=== PATIENT | female | born 1960 | race Caucasian/White ===

== ENCOUNTER → 2016-12-28 | Outpatient (REF) | payer OTHER ==
[~2016-12-28] MED LIST: BISAC5TA PO; FAMO40TA3 PO; GABA800T PO; LIPI80TA PO; METR1TAB66 PO; ONDA4TAB6 PO; PANT40TA2 PO
== END ==
LOC: M LAB REF 09:29
PROVIDERS: ATTEND Internal Medicine Gastroenterology
DX: R19.7 Diarrhea, unspecified (principal)

== ENCOUNTER 2017-01-11 12:45 | Observation (INO) | payer OTHER ==
[~2017-01-11] VITALS: Ht 162.6 cm; Wt 70.8 kg
[~2017-01-11 12:45] MED LIST changes: -PANT40TA2 PO
[2017-01-11] MEDS ORDERED: NS 1,000 ML IV ONE (13:00)
[2017-01-11] MEDS ORDERED: LIDOCAINE 2% INJ 100 MG/5 ML SDV (FOR ANES.) As Ordered ONE (14:27)
[2017-01-11] MEDS ORDERED: PROPOFOL 200 MG/20 ML VIAL As Ordered ONE ×4 (14:27→15:40)
--- NOTE | 2017-01-11 15:55 | ROOR ---
Patient Name: Leslee Gonzalez Procedure Date: 01/11/2017 2:41 PM Date of : 1960 Age: 56 Room: [facility] Gender: Female Note Status: Finalized Procedure: Colonoscopy Indications: Chronic diarrhea Providers: Ever Mcbride MD Referring MD: ROSINA FONTAINE MD Requesting Provider: Medicines: Monitored Anesthesia Care Complications: No immediate complications. Procedure: Pre-Anesthesia Assessment: - Prior to the procedure, a History and Physical was performed, and patient medications and allergies were reviewed. The patient is competent. The risks and benefits of the procedure and the sedation options and risks were discussed with the patient. All questions were answered and informed consent was obtained. Patient identification and proposed procedure were verified by the physician, the nurse and the anesthesiologist in the procedure room. Mental Status Examination: alert and oriented. Airway Examination: normal oropharyngeal airway and neck mobility. Respiratory Examination: clear to auscultation. CV Examination: normal. Prophylactic Antibiotics: The patient does not require prophylactic antibiotics. Prior Anticoagulants: The patient has taken no previous anticoagulant or antiplatelet agents. ASA Grade Assessment: III - A patient with severe systemic disease. After reviewing the risks and benefits, the patient was deemed in satisfactory condition to undergo the procedure. The anesthesia plan was to use monitored anesthesia care (MAC). Immediately prior to administration of medications, the patient was re-assessed for adequacy to receive sedatives. The heart rate, respiratory rate, oxygen saturations, blood pressure, adequacy of pulmonary ventilation, and response to care were monitored throughout the procedure. The physical status of the patient was re-assessed after the procedure. The Colonoscope was introduced through the anus and advanced to the terminal ileum, with identification of the appendiceal orifice and IC valve. The colonoscopy was performed without difficulty. The patient tolerated the procedure well. The quality of the bowel preparation was good. The terminal ileum, ileocecal valve, appendiceal orifice, and rectum were photographed. Scope insertion time was 3 minutes. Scope withdrawal time was 15 minutes. The total duration of the procedure was 20 minutes. Findings: Hemorrhoids were found on perianal exam. The terminal ileum appeared normal. A 3 mm polyp was found in the cecum. The polyp was sessile. The polyp was removed with a cold biopsy forceps. Resection and retrieval were complete. Verification of patient identification for the specimen was done by the physician and nurse using the patient's name, date and medical record number. Estimated blood loss was minimal. A 15 mm polyp was found in the descending colon. The polyp was sessile. The polyp was removed with a hot snare. Resection and retrieval were complete. To close a defect after polypectomy, three hemostatic clips were successfully placed. There was no bleeding at the end of the procedure. Multiple small and large-mouthed diverticula were found in the sigmoid colon. There was no evidence of diverticular bleeding. Non-bleeding external and internal hemorrhoids were found during retroflexion. The hemorrhoids were large. Impression: - Hemorrhoids found on perianal exam. - The examined portion of the ileum was normal. - One 3 mm polyp in the cecum, removed with a cold biopsy forceps. Resected and retrieved. - One 15 mm polyp in the descending colon, removed with a hot snare. Resected and retrieved. Clips were placed. - Moderate diverticulosis in the sigmoid colon. There was no evidence of diverticular bleeding. - Non-bleeding external and internal hemorrhoids. Recommendation: - Patient has a contact number available for emergencies. The signs and symptoms of potential delayed complications were discussed with the patient. Return to normal activities tomorrow. Written discharge instructions were provided to the patient. - High fiber diet. - Continue present medications. - Await pathology results. - Preparation H ointment: Apply externally daily for 5 days. - Repeat colonoscopy in 3 - 5 years for surveillance based on pathology results. - Return to GI clinic as previously scheduled on 01/20/2017 at 10:00 AM. - Referral to surgery for the large hemorrhoids at appointment to be scheduled. - Return to primary care physician. Ever Mcbride MD Ever Mcbride MD 01/11/2017 3:54:53 PM This report has been signed electronically. Number of Addenda: 0 Note Initiated On: 01/11/2017 2:41 PM Estimated Blood Loss: Estimated blood loss was minimal.
--- NOTE | 2017-01-11 16:01 | ROOR ---
Patient Name: Leslee Gonzalez Procedure Date: 01/11/2017 2:40 PM Date of : 1960 Age: 56 Room: [facility] Gender: Female Note Status: Finalized Procedure: Upper GI endoscopy Indications: Suspected gastro-esophageal reflux disease Providers: Ever Mcbride MD Referring MD: ROSINA FONTAINE MD Requesting Provider: Medicines: Monitored Anesthesia Care Complications: No immediate complications. Procedure: Pre-Anesthesia Assessment: - Prior to the procedure, a History and Physical was performed, and patient medications and allergies were reviewed. The patient is competent. The risks and benefits of the procedure and the sedation options and risks were discussed with the patient. All questions were answered and informed consent was obtained. Patient identification and proposed procedure were verified by the physician, the nurse and the fertilizer applicator in the procedure room. Mental Status Examination: normal. Airway Examination: normal oropharyngeal airway and neck mobility. Respiratory Examination: clear to auscultation. CV Examination: normal. Prophylactic Antibiotics: The patient does not require prophylactic antibiotics. Prior Anticoagulants: The patient has taken no previous anticoagulant or antiplatelet agents. ASA Grade Assessment: II - A patient with mild systemic disease. After reviewing the risks and benefits, the patient was deemed in satisfactory condition to undergo the procedure. The anesthesia plan was to use monitored anesthesia care (MAC). Immediately prior to administration of medications, the patient was re-assessed for adequacy to receive sedatives. The heart rate, respiratory rate, oxygen saturations, blood pressure, adequacy of pulmonary ventilation, and response to care were monitored throughout the procedure. The physical status of the patient was re-assessed after the procedure. The Endoscope was introduced through the mouth, and advanced to the second part of duodenum. The upper GI endoscopy was accomplished without difficulty. The patient tolerated the procedure well. Findings: The Z-line was irregular and was found 36 cm from the incisors. Biopsies were taken with a cold forceps for histology. Verification of patient identification for the specimen was done by the physician and nurse using the patient's name, date and medical record number. Estimated blood loss was minimal. Diffuse moderate inflammation characterized by erythema and granularity was found in the gastric body and in the gastric antrum. Biopsies were taken with a cold forceps for Helicobacter pylori testing. The duodenal bulb and second portion of the duodenum were normal. Biopsies for histology were taken with a cold forceps for evaluation of celiac disease. Impression: - Z-line irregular, 36 cm from the incisors. Biopsied. - Gastritis. Biopsied. - Normal duodenal bulb and second portion of the duodenum. Biopsied. Recommendation: - Patient has a contact number available for emergencies. The signs and symptoms of potential delayed complications were discussed with the patient. Return to normal activities tomorrow. Written discharge instructions were provided to the patient. - Clear liquid diet for 1 day, then advance as tolerated to resume previous diet. - Follow an antireflux regimen. - Use Protonix (pantoprazole) 40 mg PO daily for 8 weeks. - Return to GI clinic as previously scheduled on 01/20/2017 at 10:00 AM. - Return to primary care physician. Ever Mcbride MD Ever Mcbride MD 01/11/2017 4:00:51 PM This report has been signed electronically. Number of Addenda: 0 Note Initiated On: 01/11/2017 2:40 PM Estimated Blood Loss: Estimated blood loss was minimal.
[2017-01-11] MEDS ORDERED: ONDANSETRON 4MG/2ML VIAL (J2405) As Ordered ONE (16:05)
[2017-01-11] MEDS ORDERED: ONDANSETRON 4MG/2ML VIAL (J2405) IV ONE (16:15)
[2017-01-11 17:51] VITALS: BP 154/68
[2017-01-11] MEDS ORDERED: PANTOPRAZOLE 40MG INJ (PROTONIX) (C9113) IV ONE (18:00)
[2017-01-11] MEDS ORDERED: KETOROLAC 30 MG/ML VIAL (J1885) IV ONE (18:15)
[2017-01-11] MEDS: LR 1,000 ML IV SCH (18:29)
[2017-01-11 18:35] LABS: MEAN CORPUSCULAR HEMOGLOBIN 31.9 pg (27.0-33.0); MEAN CORPUSCULAR HGB CONC 34.2 g/dl (32.0-36.5); MEAN CORPUSCULAR VOLUME 93.1 fl (80.0-96.0); RED CELL DISTRIBUTION WIDTH 12.7 % (11.5-14.5); WHITE BLOOD COUNT 15.1 10^3/uL (4.0-10.0)
[2017-01-11] MEDS ORDERED: D5W IV ONE (19:00)
[2017-01-11] MEDS ORDERED: ONDANSETRON 4MG/2ML VIAL (J2405) IV PRN (19:00)
[2017-01-11] MEDS ORDERED: ERYTHROMYCIN LACTOBIONATE IV ONE (19:00)
[2017-01-11 19:06] LABS: ALBUMIN 3.6 GM/DL (3.2-5.2); ALBUMIN/GLOBULIN RATIO 1.09 (1.00-1.93); ALKALINE PHOSPHATASE 64 U/L (45-117); ALT/SGPT 17 U/L (12-78); ANION GAP 12 MEQ/L (8-16); AST/SGOT 15 U/L (15-37); BILIRUBIN,TOTAL 0.6 MG/DL (0.2-1.0); BLOOD UREA NITROGEN 13 MG/DL (7-18); CALCIUM LEVEL 8.5 MG/DL (8.5-10.1); CARBON DIOXIDE LEVEL 21 MEQ/L (21-32); CHLORIDE LEVEL 110 MEQ/L (98-107); CREATININE FOR GFR 0.87 MG/DL (0.55-1.02); GLOMERULAR FILTRATION RATE > 60.0 (>51); GLUCOSE, FASTING 87 MG/DL (70-105); POTASSIUM SERUM 3.4 MEQ/L (3.5-5.1); SODIUM LEVEL 143 MEQ/L (136-145); TOTAL PROTEIN 6.9 GM/DL (6.4-8.2)
[2017-01-11] MEDS: GABAPENTIN 400 MG CAP PO SCH ×2 (19:56→21:00)
[2017-01-11 20:00] VITALS: BP 180/81
[2017-01-11] MEDS ORDERED: METOCLOPRAMIDE INJ 10MG/2ML VIAL (J2765) IV ONE (20:30)
--- NOTE | 2017-01-11 22:29 | CR.PDOC ---
[facility] Consultation Consultation DATE OF CONSULTATION: Jan 11, 2017 at 17:05 Patient admitted to 23 hour observation Unit post Endoscopic procedures. HPI: 56 year old woman with cervical spine disease ( s/p spinal fusion surgery) , chronic back pain, acid reflux was seen in GI clinic for history of diverticulitis, abdominal pain, chronic intermittent diarrhea and chronic acid reflux not controlled with Pepcid. Patient tolerated procedures well. Detailed procedure notes attached below. Patient post procedure started complaining of nausea and persistent retching with mucous output she vomited atleast 50 ml of greenish/ coffee coloured material. Also patient reported that even last time when she had anesthesia she had persistent vomiting and was admitted to hospital so patient was concerned to go home. Patient was monitored for 1 hours in OPP after giving Zofran, but continued to have nausea and retching with liquid saliva vomiting. So patient was admitted for 23 hour observation unit. Patient also reports severe back pain. Which had been chronic but due to retching having more pain. Also patient could not take her home pain medications due to vomiting. Patient is able to pass gas. Pertinent negative symptoms: Patient denies fever, chills, abdominal pain, hematemesis, melena or hematochezia, bloating or abdominal distention. Review of Systems: GI: as stated above CVS: No chest pain, No palpitations, No leg swelling. RS: No Shortness of breath, No Wheezing, no cough SCHOOL GUARD: No dizziness, No motor weakness, No sensory problems Hematology: No bruising, No gum bleeding, Musculoskeletal: Back pain- chronic, ambulating well. Skin: No rash : No hematuria, No burning sensation of the urine ENT: No ear discharge/ pain, No dysphagia. Eyes: No photophobia. Home medications: reviewed. Antithrombotic agents - None Medical h/o: As above. Surgical h/o: Appendectomy, cholecystectomy, C- section x 3, C- spine surgery, umbilical hernia repair. Social h/o: Denied Alcohol use, smoking, IVDA/ drugs . Family h/o of GI cancers - None Prior Endoscopies: Patient today underwent EGD ( for chronic acid reflux) and Colonoscopy for h/o diverticulitis. --- EGD Noted irregular Z-line in esophagus, gastritis and normal Duodenum. --- Colonoscopy Fair prep. Completed till TI, 3 mm polyp in cecum and 15 mm polyp in descending colon removed. Clips placed. Large hemorrhoids. Prior GI evaluation: Exam: Vitals: reviewed General: Alert and oriented x 3, not in distress HEENT: Normal oropharynx, NO cervical lymph nodes. Chest: symmetric with bilateral clear air entry, CVS: S1, S2 heard, normal, no murmurs . Abdomen: non-distended, no surgical scars, soft, non-tender, no palpable masses , normal bowel sounds heard. Rectal exam: refused. . Extremities: no pedal edema, pulses palpable. SCHOOL GUARD: no focal motor or sensory deficits. Moves all extremities Skin: no rash. Labs: reviewed. Mild elevated WBC could be reactive. (NO fever). Imaging: none for now in this admission. Impression: - Persistent nausea or vomiting. h/o similar response post anesthetic procedure in past. DDx- Medication induced vs post procedure vs acute gastritis. Vs r/o procedure complications- less likell - Chronic back pain. Recommendations: - Patient educated about the endoscopy predures results, All questions answered. - IN view of persistent nausea and vomiting admitted patient to 23 hour observation unit; - Will closely monitor vitals. - Pain medications- - ( morphine 2mg Q 8 hours PRN). - resumed home medications. - Clear liquid diet for 24 hours and then advance. - Patient educated about the possible differential diagnoses and plan of care. All questions answered to the patient satisfaction and Patient verbalized understanding and agreed for plan of care. - If patient sympoms might proceed with CT abdomen depending on clinical course. Plan of care reviewed with patient and floor nurse.. Allergies Coded Allergies: No Known Allergies (Unverified , 01/04/17) Home Medications Scheduled Atorvastatin Calcium (Lipitor) 80 Mg Tab, 80 MG PO QHS, (Reported) Famotidine (Famotidine) 40 Mg Tab, 40 MG PO QAM, (Reported) Gabapentin (Gabapentin) 800 Mg Tab, 800 MG PO TID, (Reported) Metronidazole (Metronidazole) 500 Mg Tab, 500 MG PO DAILY, (Reported) Scheduled PRN Bisacodyl (Bisacodyl EC) 5 Mg Tab, 5 MG PO DAILY PRN for CONSTIPATION, (Reported ) Ondansetron (Ondansetron Odt) 4 Mg Tab, 4 MG PO DAILY PRN for NAUSEA, (Reported) BETI SPARKS MD Jan 11, 2017 22:29
[2017-01-12] VITALS: BP 124/80
[2017-01-12] MEDS ORDERED: MORPHINE 2 MG/ML 1ML SYRINGE IV PRN (00:30)
[2017-01-12 04:00] VITALS: BP 140/80
[2017-01-12 07:00] LABS: BASO % 0.3 % (0.0-1.0); EOS # 0.2 10^3/uL (0.0-0.50); EOS % 1.2 % (0.0-3.0); IMMATURE GRANULOCYTE % 0.4 % (0-0); LYMPH # 2.2 10^3/uL (1.5-4.5); LYMPH % 17.7 % (24.0-44.0); MEAN CORPUSCULAR HEMOGLOBIN 32.2 pg (27.0-33.0); MEAN CORPUSCULAR HGB CONC 34.4 g/dl (32.0-36.5); MEAN CORPUSCULAR VOLUME 93.7 fl (80.0-96.0); MONO # 0.8 10^3/uL (0.0-0.8); MONO % 6.4 % (0.0-5.0); PLATELET COUNT, AUTOMATED 212 10^3/uL (150-450); RED CELL DISTRIBUTION WIDTH 12.7 % (11.5-14.5); WHITE BLOOD COUNT 12.2 10^3/uL (4.0-10.0)
[2017-01-12 07:32] LABS: ANION GAP 8 MEQ/L (8-16); BLOOD UREA NITROGEN 10 MG/DL (7-18); CALCIUM LEVEL 8.5 MG/DL (8.5-10.1); CARBON DIOXIDE LEVEL 26 MEQ/L (21-32); CHLORIDE LEVEL 107 MEQ/L (98-107); CREATININE FOR GFR 0.68 MG/DL (0.55-1.02); GLOMERULAR FILTRATION RATE > 60.0 (>51); GLUCOSE, FASTING 69 MG/DL (70-105); POTASSIUM SERUM 3.3 MEQ/L (3.5-5.1); SODIUM LEVEL 141 MEQ/L (136-145)
[2017-01-12 08:00] VITALS: BP 134/67
[2017-01-12] MEDS: GABAPENTIN 400 MG CAP PO SCH ×2 (08:51→15:52)
[2017-01-12] MEDS ORDERED: ATORVASTATIN 20 MG TAB PO SCH (09:00)
[2017-01-12] MEDS ORDERED: PANTOPRAZOLE 40MG TAB (PROTONIX) PO SCH (09:00)
[2017-01-12] MEDS: LR 1,000 ML IV SCH (11:36)
[2017-01-12 12:00] VITALS: BP 115/71
[2017-01-12] MEDS ORDERED: ISOVUE-370 76% 100ML VIAL (Q9967) As Ordered ONE (14:20)
--- NOTE | 2017-01-12 15:39 | REP ---
CT of the abdomen and pelvis with IV contrast, without bowel contrast: The patient reportedly recently underwent colonoscopy and endoscopy. The visualized lung lagos are unremarkable. The hepatic parenchyma is homogeneous. There are surgical clips in the gallbladder fossa. The pancreas and spleen are unremarkable except for calcified granulomas in the spleen. The gastric wall appears thickened. This is nonspecific and could be artifact from non distension or could represent gastric wall edema. There is no Gastric adenopathy. The adrenals and kidneys are unremarkable. The abdominal aorta is unremarkable. There is no bowel distension or obstruction. There is several small metallic densities in the abdominal right lower quadrant near the cecum. There is a complex metallic density within the distal transverse colon. There is no evidence of pneumoperitoneum or focal fluid collection associated with either of the metallic densities. Pelvis: There is no ascites or adenopathy. There is wall thickening of the sigmoid colon, nonspecific, artifact from under distension versus colitis in the appropriate clinical context. The uterus and adnexa are unremarkable. Impression: There are several tiny metallic densities in the abdominal right lower quadrant. There is a complex metallic density in the distal transverse colon. There is no evidence of pneumoperitoneum or fluid collection associated with either of these metallic densities. There is no bowel distension or obstruction. There is gastric wall thickening, nonspecific, inflammation versus artifact from under distension. There is sigmoid colon wall thickening, nonspecific, artifact from under distension versus colitis. No ascites or adenopathy. No pneumoperitoneum. There are surgical clips in the gallbladder fossa. There are splenic calcified granulomas. Signed by Dhruv Amato MD 01/12/2017 03:31 P
[2017-01-12 16:00] VITALS: BP 115/61
[2017-01-12] MEDS ORDERED: PANT40TA2 PO (17:16)
[2017-01-14] MEDS ORDERED: INFLUENZA QUADRIVALENT PF VACCINE 0.5ML SYRINGE (90686) IM ONE (09:00)
== END 2017-01-12 18:20 | disposition home or self-care (01) ==
LOC: M OPP 12:45 → M PED 17:25
PROVIDERS: ADMIT Internal Medicine Gastroenterology; ATTEND Internal Medicine Gastroenterology
DX: R11.2 Nausea with vomiting, unspecified (principal); K22.8 Other specified diseases of esophagus; K29.70 Gastritis, unspecified, without bleeding; K64.8 Other hemorrhoids; D12.0 Benign neoplasm of cecum; D12.4 Benign neoplasm of descending colon; K52.9 Noninfective gastroenteritis and colitis, unspecified; K57.30 Diverticulosis of large intestine without perforation or abscess without bleeding; E78.5 Hyperlipidemia, unspecified; K21.9 Gastro-esophageal reflux disease without esophagitis; Z79.899 Other long term (current) drug therapy
CPT/HCPCS: 36415; 43239; 45380; 45385; 74177; 80048; 80053; 85025; 85027; 85610; 85730; 87040; 88305; 96365; 96366; 96375; C9113; J1364; J1885; J2405; J2765; Q9967

== ENCOUNTER → 2020-03-09 | Outpatient (CLI) | payer OTHER ==
[~2020-03-09] MED LIST changes: +BLAC40CA PO; +CELE1CAP7 PO; -GABA800T PO; +GABA800T4 PO; +METR-265 PO; -METR1TAB66 PO; +MULTCAP PO; +PANT40TA29 PO; +REGL10TA6 PO
== END ==
LOC: M LABSMTC 09:38
PROVIDERS: ATTEND Anesthesiology
DX: Z01.812 Encounter for preprocedural laboratory examination (principal); Z20.828 Contact with and (suspected) exposure to other viral communicable diseases

== ENCOUNTER 2020-03-12 12:32 | Emergency (ER) | payer OTHER ==
[~2020-03-12] VITALS: Ht 160 cm; Wt 71.2 kg
[~2020-03-12 12:32] MED LIST changes: -BLAC40CA PO; -CELE1CAP7 PO; -REGL10TA6 PO
[2020-03-12 13:38] LABS: BASO # 0.1 10^3/uL (0.0-0.2); BASO % 0.6 % (0.0-1.0); EOS # 0.1 10^3/uL (0.0-0.5); EOS % 0.8 % (0.0-3.0); HEMATOCRIT 43.4 % (36.0-47.0); HEMOGLOBIN 14.6 g/dl (12.0-15.5); LYMPH % 21.9 % (24.0-44.0); MEAN CORPUSCULAR HEMOGLOBIN 31.2 pg (27.0-33.0); MEAN CORPUSCULAR HGB CONC 33.6 g/dl (32.0-36.5); MEAN CORPUSCULAR VOLUME 92.7 fl (80.0-96.0); MONO # 0.6 10^3/uL (0.0-0.8); MONO % 7.1 % (0.0-5.0); NEUTROPHILS # 6.3 10^3/uL (1.5-8.5); NEUTROPHILS % 69.4 % (36.0-66.0); PLATELET COUNT, AUTOMATED 247 10^3/uL (150-450); RED BLOOD COUNT 4.68 10^6/uL (4.00-5.40)
[2020-03-12] MEDS ORDERED: BLAC40CA PO (13:39)
[2020-03-12] MEDS ORDERED: CELE1CAP7 PO (13:39)
[2020-03-12 14:09] LABS: ALBUMIN 3.9 GM/DL (3.2-5.2); ALT/SGPT 16 U/L (12-78); BILIRUBIN,TOTAL 0.7 MG/DL (0.2-1.0); BLOOD UREA NITROGEN 21 MG/DL (7-18); CALCIUM LEVEL 9.5 MG/DL (8.5-10.1); CARBON DIOXIDE LEVEL 24 MEQ/L (21-32); CHLORIDE LEVEL 109 MEQ/L (98-107); CREATININE FOR GFR 0.95 MG/DL (0.55-1.30); GLOMERULAR FILTRATION RATE > 60.0 (>51); GLUCOSE, FASTING 99 MG/DL (70-100); LIPASE 72 U/L (73-393); POTASSIUM SERUM 4.8 MEQ/L (3.5-5.1); SODIUM LEVEL 142 MEQ/L (136-145); TOTAL PROTEIN 7.7 GM/DL (6.4-8.2)
[2020-03-12 14:10] LABS: BILIRUBIN,DIRECT < 0.1 MG/DL (0.0-0.2)
[2020-03-12] MEDS ORDERED: NS 1,000 ML IV ONE (14:15)
[2020-03-12] MEDS ORDERED: CIPROFLOXACIN 200 MG in IV 1 EA IV ONE (14:15)
[2020-03-12] MEDS ORDERED: METOCLOPRAMIDE INJ 10MG/2ML VIAL (J2765 PER 1) IV ONE (14:15)
[2020-03-12] MEDS ORDERED: ACETAMINOPHEN 500 MG TAB PO ONE (15:15)
[2020-03-12] MEDS ORDERED: ONDANSETRON 4MG/2ML VIAL IV ONE (16:00)
[2020-03-12] MEDS ORDERED: REGL10TA6 PO (17:48)
[2020-03-12 18:43] VITALS: BP 178/92
== END 2020-03-12 19:05 | disposition home or self-care (01) ==
LOC: M ED 12:32
DX: K57.92 Diverticulitis of intestine, part unspecified, without perforation or abscess without bleeding (principal); R10.9 Unspecified abdominal pain; K44.9 Diaphragmatic hernia without obstruction or gangrene; K64.9 Unspecified hemorrhoids; Z79.2 Long term (current) use of antibiotics; Z79.899 Other long term (current) drug therapy; Z79.1 Long term (current) use of non-steroidal anti-inflammatories (NSAID)
CPT/HCPCS: 80048; 80076; 83605; 83690; 85025; 96361; 96365; 96366; 96375; 99284; J0744; J2405; J2765

== ENCOUNTER → 2020-06-01 | Outpatient (CLI) | payer OTHER ==
[~2020-06-01] MED LIST changes: +BLAC40CA PO; +CELE1CAP7 PO; +REGL10TA6 PO; +VITMTA PO
== END ==
LOC: M LABSMTC 08:03
PROVIDERS: ATTEND Anesthesiology
DX: Z01.812 Encounter for preprocedural laboratory examination (principal); Z20.822 Contact with and (suspected) exposure to COVID-19

== ENCOUNTER 2020-06-06 10:20 | Day surgery (SDC) | payer OTHER ==
[~2020-06-06] VITALS: Ht 160 cm; Wt 73.0 kg
[~2020-06-06 10:20] MED LIST changes: +LIDOCAINE 2% 100MG/5ML SDV (FOR ANES.) As Ordered ONE; +NS 1,000 ML IV ONE; +propofoL 200 MG/20 ML VIAL As Ordered ONE
--- OUTSIDE RECORDS SUMMARY | 2020-06-06 10:26 | CCD | Continuity of Care Document ---
Author Author Leslee K[facility] Organization Unknown Address [address], [address] [place] [address] Phone [phone] Care Team Providers Care Mining Teacher Name Role Phone Arslan Fried M.D. AUTM [phone] Avinash Cartagena M.D AUTM [phone] Problems Active Problems Provider Date Diarrhea Ever Mcbride M.D. Onset: 017 Abdominal pain Ever Mcbride M.D. Onset: 017 Peptic reflux disease Ever Mcbride M.D. Onset: 12/16 Gastroesophageal reflux disease Ever Mcbride M.D. On set: 01/20/2017 Other hemorrhoids Ever Mcbride M.D. Onset: 017 Diverticular disease of colon Ever Mcbride M.D. Onse t: 01/20/2017 Gastroduodenitis Ever Mcbride M.D. Onset: 017 Social History Type Date Description Comments Sex Unknown ETOH Use Denies alcohol use Tobacco Use Start: Unknown Non Smoker Recreational Drug Use Current Drug User BERTHA A Allergies, Adverse Reactions, Alerts Description No Known Drug Allergies Medications Active Medications SIG Qnty Indications Ordering Provide r Date Dulcolax 5mg Tablets DR take 4 tabs by mouth prior to procedure per instructions. 4tabs Z12.11 Darshan Baron MD 01/24/2020 Miralax 17GM/Scoop Powder use as instructed by doctor for bowel prep 510gm Z12.11 Darshan Baron MD 01/24/2020 Preparation H 0.25-14-74.9% Ointme nt apply daily at bedtime prn 28gm K21.9 Ever Mcbride M.D. 1 Pantoprazole Sodium 40mg Tablets D R Take One Tablet By Mouth Every Day 30 Minutes Before Breakfast. ( taper off after 8 weeks) 60tabs Ever Mcbride M.D. 2016 Gabapentin 800mg Tablets 1Tab PO tid Unknown Atorvastatin Calcium 80mg Tablets 1Tab PO qd Unknown Senna 8.6mg Tablets 1Tab PO b id prn Unknown Black Cohosh 40mg Capsules 1 Tabs PO tid Unknown Zofran 4mg Tablets 1Ta b PO prn For Nausea Unknown Celecoxib 100mg Capsules 1 by mouth every day prn Unknown Immunizations Description No Information Available Vital Signs Date Vital Result Comment 04/03/2020 10:39am BP Systolic 140 mmHg BP Diastolic 82 mmHg Height 63 inches 5'3" Weight 164.00 lb BMI (Body Mass Index) 29.0 kg/m2 [place] Body Weight 115 lb Weight 74.390 kg BSA (Body Surface Area) 1.78 m2 01/24/2020 11:06am BP Systolic 121 mmHg BP Diastolic 77 mmHg Height 63 inches 5'3" Weight 159.25 lb BMI (Body Mass Index) 28.2 kg/m2 [place] Body Weight 115 lb Weight 72.236 kg BSA (Body Surface Area) 1.76 m2 Results Description No Information Available Procedures Date Code Description Status 01/24/2020 29331 Hemorrhoidectomy, By Simple Ligzac orona Completed Medical Devices Description No Information Available Encounters Type Date Location Provider Dx Diagnosis Office Visit 01/24/2020 10:50a [facility] Vasquez duke JR, MD K64.9 Unspecified hemorrhoids Assessments Date Code Description Provider 04/03/2020 Z12.11 Encounter for screening for khushbu gnant neoplasm of colon ALISON Ozuna 04/03/2020 Z86.010 Personal history of colonic poly ps ALISON Ozuna 04/03/2020 K21.9 Gastro-esophageal reflux disease without esophagitis ALISON Ozuna 04/03/2020 K57.30 Diverticulosis of la rge intestine without perforation or abscess without bleeding [facility] 01/[facility]/2020 K64.9 Unspecified hemorrhoids Vasquez aguilar JR, MD 01/24/2020 Z12.11 Encounter for screening for khushbu gnant neoplasm of colon Candie DialloANDREW [facility] 01/24/2020 Z86.010 Personal history of colonic poly ps Candiemere Lawlerisha, ANDREW[facility] 01/24/2020 K21.9 Gastro-esophageal reflux disease without esophagitis Candie Lawlerisha [facility] Plan of Treatment 04/03/2020 [facility] Z12.11 Encounter for screening for malignant neoplasm of colon * Z86.010 Personal history of colonic polyps * K21.9 Gastro-esophageal reflux disease without esophagitis * K57.30 Diverticulosis of large intestine without perforation or abscess without bleeding * * New Orders:* Colonoscopy, Ordered: 04/03/20 * Comments:* Will arrange for colonoscopy. Reviewed risks and benefits of the procedure, as well as other options, with the patient. Bowel prep procedure was discussed with patient, as well as risks and side effects associated with the bowel prep. Patient verbalized understanding of all of the above and is in agreement to proceed. Patient will seek medical attention for any acute changes. Will monitor. Functional Status Description No Information Available Mental Status Description No Information Available Referrals Refer to Reason for Referral Status Appt Date Ever Mcbride M.D. [id number] [place] [address], [facility] [address] [place] [address] [phone]
--- OUTSIDE RECORDS SUMMARY | 2020-06-06 10:28 | CCD ---
Author Author [facility] Organization [facility] Address Unknown Phone Unavailable Care Team Providers Care Cable Tool Driller Name Role Phone James Del Angel Unavailable Unavailable Cougler, S Lew INSTRUCTOR TAP DANCING Unavailable Unavailable Cougler, S Lew INSTRUCTOR TAP DANCING Unavailable Unavailable Cougler, S Lew INSTRUCTOR TAP DANCING Unavailable Unavailable Cougler, S Lew INSTRUCTOR TAP DANCING Unavailable Unavailable Cougler, S Lew INSTRUCTOR TAP DANCING Unavailable Unavailable Cougler, S Lew INSTRUCTOR TAP DANCING Unavailable Unavailable Cougler, S Lew INSTRUCTOR TAP DANCING Unavailable Unavailable Cougler, S Lew INSTRUCTOR TAP DANCING Unavailable Unavailable Cougler, S Lew INSTRUCTOR TAP DANCING Unavailable Unavailable Cougler, S Lew INSTRUCTOR TAP DANCING Unavailable Unavailable Cougler, S Lew INSTRUCTOR TAP DANCING Unavailable Unavailable Cougler, S Lew INSTRUCTOR TAP DANCING Unavailable Unavailable Cougler, S Lew INSTRUCTOR TAP DANCING Unavailable Unavailable Cougler, S Lew INSTRUCTOR TAP DANCING Unavailable Unavailable Cougler, S Lew INSTRUCTOR TAP DANCING Unavailable Unavailable Cougler, S Lew INSTRUCTOR TAP DANCING Unavailable Unavailable Cougler, S Lew INSTRUCTOR TAP DANCING Unavailable Unavailable Cougler, S Lew INSTRUCTOR TAP DANCING Unavailable Unavailable Cougler, S Lew INSTRUCTOR TAP DANCING Unavailable Unavailable Cougler, S Lew INSTRUCTOR TAP DANCING Unavailable Unavailable Cougler, S Lew INSTRUCTOR TAP DANCING Unavailable Unavailable Cougler, S Lew INSTRUCTOR TAP DANCING Unavailable Unavailable Cougler, S Lew INSTRUCTOR TAP DANCING Unavailable Unavailable Cougler, S Lew INSTRUCTOR TAP DANCING Unavailable Unavailable Cougler, S Lew INSTRUCTOR TAP DANCING Unavailable Unavailable Cougler, S Lew INSTRUCTOR TAP DANCING Unavailable Unavailable Cougler, S Lew INSTRUCTOR TAP DANCING Unavailable Unavailable Cougler, S Lew INSTRUCTOR TAP DANCING Unavailable Unavailable Cougler, S Lew INSTRUCTOR TAP DANCING Unavailable Unavailable Cougler, S Lew INSTRUCTOR TAP DANCING Unavailable Unavailable Cougler, S Lew INSTRUCTOR TAP DANCING Unavailable Unavailable Cougler, S Lew INSTRUCTOR TAP DANCING Unavailable Unavailable Cougler, S Lew INSTRUCTOR TAP DANCING Unavailable Unavailable Cougler, S Lew INSTRUCTOR TAP DANCING Unavailable Unavailable Cougler, S Lew INSTRUCTOR TAP DANCING Unavailable Unavailable Cougler, S Lew INSTRUCTOR TAP DANCING Unavailable Unavailable Cougler, S Lew INSTRUCTOR TAP DANCING Unavailable Unavailable Cougler, S Lew INSTRUCTOR TAP DANCING Unavailable Unavailable Cougler, S Lew INSTRUCTOR TAP DANCING Unavailable Unavailable Cougler, S Lew INSTRUCTOR TAP DANCING Unavailable Unavailable Anat Berkowitz MD, ND Unavailable Anat Berkowitz MD, ND Unavailable [phone] Anat Berkowitz MD, ND Unavailable [phone] Anat Berkowitz MD, ND Unavailable Anat Berkowitz MD, ND Unavailable [phone] Anat Berkowitz MD, ND Unavailable [phone] Anat Berkowitz MD, ND Unavailable [phone] Anat Berkowitz MD, ND Unavailable [phone] Anat Berkowitz MD, ND Unavailable [phone] Anat Berkowitz MD, ND Unavailable Anat Berkowitz MD, ND Unavailable [phone] Anat Berkowitz MD, ND Unavailable [phone] Anat Berkowitz MD, ND Unavailable [phone] Sho REYNAAnat ND Unavailable [phone] Sho REYNAAnat ND Unavailable + [phone] Sho REYNAAnat ND Unavailable + [phone] Sho REYNAAnat ND Unavailable + 6 Sho REYNAAnat ND Unavailable [phone] Sho REYNAAnat ND Unavailable + [phone] Sho REYNAAnat ND Unavailable + 6 Sho REYNAAnat ND Unavailable [phone] Sho REYNAAnat ND Unavailable [phone] Sho REYNAAnat ND Unavailable [phone] Del Angel, R Andrei PA Unavailable Del Angel, R Andrei PA Unavailable Del Angel, R Andrei PA Unavailable Del Angel, R Andrei PA Unavailable Del Angel, R Andrei PA Unavailable Del Angel, R Andrei PA Unavailable Del Angel, R Andrei PA Unavailable Del Angel, R Andrei PA Unavailable Del Angel, R Andrei PA Unavailable FAUSTINA MATA MD Unavailable Unavailable FAUSTINA MATA MD Unavailable Unavailable FAUSTINA MATA MD Unavailable Unavailable FAUSTINA MATA MD Unavailable Unavailable FAUSTINA MATA MD Unavailable Unavailable MARAVEGIAS, Leyla MUNGUIA MD Unavailable Unavailable MARAVEGIAS, Leyla MUNGUIA MD Unavailable Unavailable MARAVEGIAS, Leyla MUNGUIA MD Unavailable Unavailable MARAVEGIALeyla Gaffney MD Unavailable Unavailable MARAVEGIALeyla Gaffney MD Unavailable Unavailable MARAVEGIALeyla Gaffney MD Unavailable Unavailable MARAVEGIASLeyla MD Unavailable Unavailable MARAVEGIASLeyla MD Unavailable Unavailable MARAVEGIAS, Leyla MUNGUIA MD Unavailable Unavailable MARAVEGIAS, Leyla MUNGUIA MD Unavailable Unavailable MARAVEGIAS, Leyla MUNGUIA MD Unavailable Unavailable MARAVEGIAS, Leyla MUNGUIA MD Unavailable Unavailable MARAVEGIAS, Leyla MUNGUIA MD Unavailable Unavailable MARAVEGIAS, Leyla MUNGUIA MD Unavailable Unavailable Seaside, F Srini PA Unavailable Unavailable Seaside, F Srini PA Unavailable Unavailable Seaside, F Srini PA Unavailable Unavailable Seaside, F Srini PA Unavailable Unavailable Oz, F Srini PA Unavailable Unavailable Seaside, F Srini PA Unavailable Unavailable Seaside, F Srini PA Unavailable Unavailable Seaside, F Srini PA Unavailable Unavailable Oz, F Srini PA Unavailable Unavailable Oz, F Srini PA Unavailable Unavailable BROWN, ANEESH MAGED INSTRUCTOR TAP DANCING Unavailable Unavailable BROWN, ANEESH MAGED INSTRUCTOR TAP DANCING Unavailable Unavailable BROWN, ANEESH MAGED INSTRUCTOR TAP DANCING Unavailable Unavailable BROWN, ANEESH MAGED INSTRUCTOR TAP DANCING Unavailable Unavailable BROWN, ANEESH MAGED INSTRUCTOR TAP DANCING Unavailable Unavailable BROWN, ANEESH MAGED INSTRUCTOR TAP DANCING Unavailable Unavailable BROWN, ANEESH MAGED INSTRUCTOR TAP DANCING Unavailable Unavailable BROWN, ANEESH MAGED INSTRUCTOR TAP DANCING Unavailable Unavailable BROWN, ANEESH MAGED INSTRUCTOR TAP DANCING Unavailable Unavailable BROWN, ANEESH MAGED INSTRUCTOR TAP DANCING Unavailable Unavailable BROWN, ANEESH MAGED INSTRUCTOR TAP DANCING Unavailable Unavailable BROWN, ANEESH MAGED INSTRUCTOR TAP DANCING Unavailable Unavailable BROWN, ANEESH MAGED INSTRUCTOR TAP DANCING Unavailable Unavailable BROWN, ANEESH MAGED INSTRUCTOR TAP DANCING Unavailable Unavailable BROWN, ANEESH MAGED INSTRUCTOR TAP DANCING Unavailable Unavailable BROWN, ANEESH MAGED INSTRUCTOR TAP DANCING Unavailable Unavailable BROWN, ANEESH MAGED INSTRUCTOR TAP DANCING Unavailable Unavailable BROWN, ANEESH MAGED INSTRUCTOR TAP DANCING Unavailable Unavailable BROWN, ANEESH MAGED INSTRUCTOR TAP DANCING Unavailable Unavailable BROWN, ANEESH MAGED INSTRUCTOR TAP DANCING Unavailable Unavailable BROWN, ANEESH MAGED INSTRUCTOR TAP DANCING Unavailable Unavailable BROWN, ANEESH MAGED INSTRUCTOR TAP DANCING Unavailable Unavailable BROWN, ANEESH MAGED INSTRUCTOR TAP DANCING Unavailable Unavailable BROWN, ANEESH MAGED INSTRUCTOR TAP DANCING Unavailable Unavailable BROWN, ANEESH MAGED INSTRUCTOR TAP DANCING Unavailable Unavailable BROWN, ANEESH MAGED INSTRUCTOR TAP DANCING Unavailable Unavailable BROWN, ANEESH MAGED INSTRUCTOR TAP DANCING Unavailable Unavailable BROWN, ANEESH MAGED INSTRUCTOR TAP DANCING Unavailable Unavailable BROWN, ANEESH MAGED INSTRUCTOR TAP DANCING Unavailable Unavailable BROWN, ANEESH MAGED INSTRUCTOR TAP DANCING Unavailable Unavailable BROWN, ANEESH MAGED INSTRUCTOR TAP DANCING Unavailable Unavailable BROWN, ANEESH MAGED INSTRUCTOR TAP DANCING Unavailable Unavailable BROWN, ANEESH MAGED INSTRUCTOR TAP DANCING Unavailable Unavailable BROWN, ANEESH MAGED INSTRUCTOR TAP DANCING Unavailable Unavailable BROWN, ANEESH MAGED INSTRUCTOR TAP DANCING Unavailable Unavailable BROWN, ANEESH MAGED INSTRUCTOR TAP DANCING Unavailable Unavailable BROWN, ANEESH MAGED INSTRUCTOR TAP DANCING Unavailable Unavailable BROWN, ANEESH MAGED INSTRUCTOR TAP DANCING Unavailable Unavailable BROWNANEESH INSTRUCTOR TAP DANCING Unavailable Unavailable ZEGIL, D RUSSELL EXPORT FREIGHT MANAGER Unavailable Unavailable ZEGIL, D RUSSELL EXPORT FREIGHT MANAGER Unavailable Unavailable ZEGIL, D RUSSELL EXPORT FREIGHT MANAGER Unavailable Unavailable Hadian, Avinash Unavailable Unavailable Hadian, Avinash Unavailable Unavailable Hadian, Avinash Unavailable Unavailable Hadian, Avinash Unavailable Unavailable Hadian, Avinash Unavailable Unavailable Hadian, Avinash Unavailable Unavailable Hadian, Avinash Unavailable Unavailable Hadian, Avinash Unavailable Unavailable Hadian, Avinsah Unavailable Unavailable Hadian, Avinash Unavailable Unavailable Hadian, Avinash Unavailable Unavailable Hadian, Avinash Unavailable Unavailable Hadian, Avinash Unavailable Unavailable Hadian, Avinash Unavailable Unavailable Hadian, Avinash Unavailable Unavailable Hadian, Avinash Unavailable Unavailable Hadian, Avinash Unavailable Unavailable Hadian, Avinash Unavailable Unavailable Hadian, Avinash Unavailable Unavailable Hadian, Avinash Unavailable Unavailable Hadian, Avinash Unavailable Unavailable Hadian, Avinash Unavailable Unavailable Hadian, Avinash Unavailable Unavailable Hadian, Avinash Unavailable Unavailable Hadian, Avinash Unavailable Unavailable Hadian, Avinash Unavailable Unavailable Hadian, Avinash Unavailable Unavailable Hadian, Avinash Unavailable Unavailable Hadian, Avinash Unavailable Unavailable Hadian, Avinash Unavailable Unavailable Hadian, Avinash Unavailable Unavailable Hadian, Avinash Unavailable Unavailable Hadian, Avinash Unavailable Unavailable Pam KOTHARI MD Unavailable Unavailable Pam KOTHARI MD Unavailable Unavailable Pam KOTHARI MD Unavailable Unavailable Pam KOTHARI MD Unavailable Unavailable Pam KOTHARI MD Unavailable Unavailable Pam KOTHARI MD Unavailable Unavailable Pam KOTHARI MD Unavailable Unavailable Pam KOTHARI MD Unavailable Unavailable Pam KOTHARI MD Unavailable Unavailable Pam KOTHARI MD Unavailable Unavailable Pam KOTHARI MD Unavailable Unavailable Pam KOTHARI MD Unavailable Unavailable Pam KOTHARI MD Unavailable Unavailable Pam KOTHARI MD Unavailable Unavailable Pam KOTHARI MD Unavailable Unavailable Pam KOTHARI MD Unavailable Unavailable Pam KOTHARI MD Unavailable Unavailable Pam KOTHARI MD Unavailable Unavailable Pam KOTHARI MD Unavailable Unavailable Pam KOTHARI MD Unavailable Unavailable PORFIRIO BLANCHARD MD Unavailable Unavailable Radha Jeff MD Unavailable Unavailable Radha Jeff MD Unavailable Unavailable Radha Jeff MD Unavailable Unavailable Radha Jeff MD Unavailable Unavailable Radha Jeff MD Unavailable Unavailable Radha Jeff MD Unavailable Unavailable Radha Jeff MD Unavailable Unavailable Radha Jeff MD Unavailable Unavailable Radha Jeff MD Unavailable Unavailable Radha Jeff MD Unavailable Unavailable Radha eJff MD Unavailable Unavailable Radha Jeff MD Unavailable Unavailable Radha Jeff MD Unavailable Unavailable Festus Sandoval JR, MD Unavailable Unavailable Festus Sandoval JR, MD Unavailable Unavailable Festus Sandoval JR, MD Unavailable Unavailable Festus Sandoval JR, MD Unavailable Unavailable Festus Sandoval JR, MD Unavailable Unavailable Festus Sandoval JR, MD Unavailable Unavailable Festus Sandoval JR, MD Unavailable Unavailable Festus Sandoval JR, MD Unavailable Unavailable Festus Sandoval JR, MD Unavailable Unavailable Festus Sandoval JR, MD Unavailable Unavailable Festus Sandoval JR, MD Unavailable Unavailable Festus Sandoval JR, MD Unavailable Unavailable Festus Sandoval JR, MD Unavailable Unavailable Festus Sandoval JR, MD Unavailable Unavailable Festus Sandoval JR, MD Unavailable Unavailable Festus Sandoval JR, MD Unavailable Unavailable Festus Sandoval JR, MD Unavailable Unavailable Festus Sandoval JR, MD Unavailable Unavailable Festus Sandoval JR, MD Unavailable Unavailable Festus Sandoval JR, MD Unavailable Unavailable Festus Sandoval JR, MD Unavailable Unavailable Festus Sandoval JR, MD Unavailable Unavailable Festus Sandoval JR, MD Unavailable Unavailable Festus Sandoval JR, MD Unavailable Unavailable Festus Sandoval JR, MD Unavailable Unavailable Festus Sandoval JR, MD Unavailable Unavailable Festus Sandoval JR, MD Unavailable Unavailable Festus Sandoval JR, MD Unavailable Unavailable Festus Sandoval JR, MD Unavailable Unavailable Festus Sandoval JR, MD Unavailable Unavailable Festus Sandoval JR, MD Unavailable Unavailable Festus Sandoval JR, MD Unavailable Unavailable Festus Sandoval JR, MD Unavailable Unavailable Festus Sandoval JR, MD Unavailable Unavailable Festus Sandoval JR, MD Unavailable Unavailable Festus Sandoval JR, MD Unavailable Unavailable Festus Sandoval JR, MD Unavailable Unavailable Festus Sandoval JR, MD Unavailable Unavailable Festus Sandoval JR, MD Unavailable Unavailable Festus Sandoval JR, MD Unavailable Unavailable Festus Sandoval JR, MD Unavailable Unavailable Festus Sandoval JR, MD Unavailable Unavailable Festus Sandoval JR, MD Unavailable Unavailable Festus Sandoval JR, MD Unavailable Unavailable Festus Sandoval JR, MD Unavailable Unavailable Festus Sandoval JR, MD Unavailable Unavailable Festus Sandoval JR, MD Unavailable Unavailable Festus Sandoval JR, MD Unavailable Unavailable Festus Sandoval JR, MD Unavailable Unavailable Festus Sandoval JR, MD Unavailable Unavailable Festus Sandoval JR, MD Unavailable Unavailable Festus Sandoval JR, MD Unavailable Unavailable Festus Sandoval JR, MD Unavailable Unavailable Festus Sandoval JR, MD Unavailable Unavailable Festus Sandoval JR, MD Unavailable Unavailable Festus Sandoval JR, MD Unavailable Unavailable Festus Sandoval JR, MD Unavailable Unavailable Uriel BLANCHARD MD Unavailable Unavailable Uriel BLANCHARD MD Unavailable Unavailable Festus Hwagn DPM Unavailable Unavailable Uriel Last MD, M.D. Unavailable [phone] Uriel Last MD, M.D. Unavailable [phone] Uriel Last MD, M.D. Unavailable [phone] Uriel Last MD, M.D. Unavailable [phone] Uriel Last MD, M.D. Unavailable [phone] Uriel Last MD, M.D. Unavailable [phone] rUiel Last MD, M.D. Unavailable [phone] Uriel Last MD, M.D. Unavailable [phone] Uriel Last MD, M.D. Unavailable [phone] Uriel Last MD, M.D. Unavailable [phone] TONYA ROGERS MD Unavailable Unavailable TONYA ROGERS MD Unavailable Unavailable TONYA ROGERS MD Unavailable Unavailable TONYA ROGERS MD Unavailable Unavailable TONYA ROGERS MD Unavailable Unavailable TONYA ROGERS MD Unavailable Unavailable TONYA ROGERS MD Unavailable Unavailable ROGERS, TONYA REYNA Unavailable Unavailable ROGERS, TONYA REYNA Unavailable Unavailable ROGERS, TONYA REYNA Unavailable Unavailable ROGERS, TONYA REYNA Unavailable Unavailable ROGERS, TONYA REYNA Unavailable Unavailable ROGERS, TONYA REYNA Unavailable Unavailable ROGERS, TONYA REYNA Unavailable Unavailable ROGERS, TONYA REYNA Unavailable Unavailable ROGERS, TONYA REYNA Unavailable Unavailable ROGERS, TONYA REYNA Unavailable Unavailable ROGERS, TONYA REYNA Unavailable Unavailable ROGERS, TONYA REYNA Unavailable Unavailable ROGERS, TONYA REYNA Unavailable Unavailable TISHA, A ARIAS PA Unavailable Unavailable TISHA, A ARIAS PA Unavailable Unavailable TIHSA, A ARIAS PA Unavailable Unavailable TISHA, A ARIAS PA Unavailable Unavailable TISHA, A ARIAS PA Unavailable Unavailable TISHA, A ARIAS PA Unavailable Unavailable TISHA, A ARIAS PA Unavailable Unavailable TISHA, A ARIAS PA Unavailable Unavailable TISHA, A ARIAS PA Unavailable Unavailable TISHA, A ARIAS PA Unavailable Unavailable TISHA, A ARIAS PA Unavailable Unavailable TISHA, A ARIAS PA Unavailable Unavailable TISHA, A ARIAS PA Unavailable Unavailable ROGERS, TONYA MD Unavailable Unavailable GALIMIDI DAHIANA DPM, J Dahiana DPM Unavailable GALIMIDI DAHIANA DPM, J Dahiana DPM Unavailable [phone] GALIMIDI DAHIANA DPM, J Dahiana DPM Unavailable [phone] GALIMIDI DAHIANA DPM, J Dahiana DPM Unavailable [phone] GALIMIDI DAHIANA DPM, J Dahiana DPM Unavailable [phone] GALIMIDI DAHIANA DPM, J Dahiana DPM Unavailable [phone] GALIMIDI DAHIANA DPM, J Dahiana DPM Unavailable [phone] GALIMIDI DAHIANA DPM, J Dahiana DPM Unavailable [phone] GALIMIDI DAHIANA DPM, J Dahiana DPM Unavailable Re-disclosure Warning The records that you are about to access may contain information from federally-assisted alcohol or drug abuse programs. If such information is present, then the following federally mandated warning applies: This information has been disclosed to you from records protected by federal confidentiality rules (42 CFR part 2). The federal rules prohibit you from making any further disclosure of this information unless further disclosure is expressly permitted by the written consent of the person to whom it pertains or as otherwise permitted by 42 CFR part 2. A general authorization for the release of medical or other information is NOT sufficient for this purpose. The Federal rules restrict any use of the information to criminally investigate or prosecute any alcohol or drug abuse patient.The records that you are about to access may contain highly sensitive health information, the redisclosure of which is protected by Article 27-F of the [facility] Public Health law. If you continue you may have access to information: Regarding HIV / AIDS; Provided by facilities licensed or operated by the [facility] Office of Mental Health; or Provided by the [facility] Office for People With Developmental Disabilities. If such information is present, then the following [facility] mandated warning applies: This information has been disclosed to you from confidential records which are protected by state law. State law prohibits you from making any further disclosure of this information without the specific written consent of the person to whom it pertains, or as otherwise permitted by law. Any unauthorized further disclosure in violation of state law may result in a fine or penitentiary sentence or both. A general authorization for the release of medical or other information is NOT sufficient authorization for further disc losure. Allergies and Adverse Reactions Type Description Substance Reaction Status Data Source(s ) Drug allergy Drug allergy No Known Allergies [facility] Drug allergy Drug allergy No Known Allergies [facility] Drug allergy No Known Drug Allergies No Known Drug Allergies [facility] Family History Family Member Name Family Member Gender Family Member Status Date o f Status Description Data Source(s) Unknown Unknown Problem [facility] ([facility] LUNG CA (MOP/FOP) Encounters Encounter Providers Location Date Indications Data Source(s ) Outpatient Attender: Dahiana MASSEY DPM, DPM CPSCAORT- CPSGNPOD 05/14/2020 10:44:00 AM EST - 05/14/2020 10:45:00 AM EST [facility] Patient discharged. Outpatient Attender: Dahiana MASSEY DPM, DPM CPSCAORT- CPSGNPOD 04/30/2020 11:34:00 AM EST - 04/30/2020 11:35:00 AM EST [facility] Patient discharged. Outpatient Attender: MAGED WHITAKER NP [facility] 2020 08:01:00 AM EST - 04/29/2020 08:02:00 AM EST YRLY, DO A DEXA ASWELL AT THIS APPT [id number] [facility] YRLY, DO A DEXA ASWELL AT THIS APPT Z138 20 Patient discharged. Outpatient Attender: Dahiana Hwang DPMAttender: Eric caal CAITIEEve DAHIANA VARGAS DPM CPSCAORT-SDCSDC 04/24/2020 06:55:00 AM EST - 04/24/2020 10:05:00 AM ES T LEFT FOOT FOREIGN BODY, RETAINED HARDWARE [facility] LEFT FOOT FOREIGN BODY, RETAINED HARDWAR E Patient discharged. Outpatient Attender: MAGED WHITAKER NP CPSCAORT-CPSGNOBG 04/12 12:51:00 PM EST - 04/22/2020 12:52:[address] [facility] Patient discharged. Outpatient Attender: Dahiana Hwang DPMAttender: Eric afua MASSEY DPM DP ED-LABPNP 04/19/2020 09:31:00 AM EST - 04/19/2020 09:32:00 AM EST [id number] [facility] [id number] Patient discharged. Outpatient Attender: Avinash Cartagena CPSCAORT-CPSGNIMD 021 01:01:00 PM EST - 04/18/2020 01:02:[address] [facility] Patient discharged. Outpatient Attender: Dahiana MASSEY DPM, DPM CPSCAORT- CPSGNPOD 04/16/2020 03:25:00 PM EST - 04/16/2020 03:26:00 PM EST [facility] Patient discharged. Outpatient Attender: Dahiana MASSEY DPM DPM ED-IMAG 04/16/2020 02:57:00 PM EST - 04/16/2020 02:58:00 PM EST [id number] [facility] l [id number] Patient discharged. Emergency Attender: RUSSELL RAMOS [facility] ED-ED 04/2019 07:45:00 AM EST - 03/12/2020 08:35:00 AM EST THROWING UP,CHEST HURTS [facility] THROWING UP,CHEST HURTS Patient discharged. Emergency Attender: Lew Mckeon NP ED-ED 03/11 10:38:00 PM EST - 03/12/2020 12:13:00 AM EST LIGHT HEADED [facility] LIGHT HEADED Patient discharged. Outpatient Attender: Vasquez Sung/Lin/Will/Venkatesh dl 01/24/2020 10:50:00 AM EDT [facility] Outpatient Attender: Moses Jeff MD CPSCAORT-CPSCADER 0 09:14:00 AM EDT - 01/03/2020 09:15:[address] [facility] Patient discharged. Emergency Attender: EZRA CHEN MDAttender: Srini GREY ED-ED 12/07/2019 07:27:00 AM EDT - 12/07/2019 08:40:00 AM EDT FELL,HIT HEAD,BRUISE ON RIGHT LEG [facility] FELL,HIT HEAD,BRUISE ON RIGHT LEG Patient discharged. Outpatient 3 [facility] [address] [place] [address] 11/27/2019 12:00:00 AM EDT eCW1 ([facility]) Outpatient Attender: Anat Berkowitz MD CPSCAORT-CPSGNIMD 11/17/2019 10:12:00 AM EDT - 11/17/2019 10:13:00 AM EDT [facility] Patient discharged. Outpatient [address] [address] 11/16/2019 12:00:00 AM EDT eCW1 ([facility]) Outpatient 3 [facility] [address] [place] [address] 11/15/2019 12:00:00 AM EDT eCW1 ([facility]) [facility] 3 [facility] [address] [place] [id number] 11/14/2019 12:00:00 AM EDT eCW1 ([facility]) Outpatient Attender: Michelle Last MD ED-IMAG 11/02/2019 02:59:00 PM EDT - 11/02/2019 03:00:00 PM EDT M54.5 [facility] M54.5 Patient discharged. Outpatient 3 [facility] [address] [place] [address] 11/01/2019 12:00:00 AM EDT eCW1 ([facility]) Outpatient Attender: Avinash Cartagena CPSCAORT-CPSGNIMD 020 01:44:00 PM EDT - 10/30/2019 01:45:[address] [facility] Patient discharged. Outpatient Attender: Avinash Cartagena ED-LAB 0 08:09:00 AM EDT - 10/28/2019 08:10:00 AM EDT E782 [facility] E782 Patient discharged. Emergency Attender: FAUSTINA MATA MD ER-ER 09/04/2019 02:44:00 PM EDT - 09/04/2019 06:24:00 PM EDT [facility] Patient discharged. Outpatient Attender: Avinash ROMEROCAHUBER-CPSGNIMD 020 01:05:00 PM EDT - 08/07/2019 01:06:[address] [facility] Patient discharged. Emergency Attender: ARIAS GREY ED-ED 08/03 12:47:00 PM EDT - 08/04/2019 01:25:00 PM EDT L FOOT PAIN [facility] L FOOT PAIN Patient discharged. [facility] [address] [facility] [address] [place] [address] 05/16/2019 12:00:00 AM EST eCW1 ([facility]) Outpatient Attender: Avinash Cartagena CPSCAORT-CPSGNIMD 020 02:30:00 PM EST - 04/27/2019 02:31:[address] [facility] Patient discharged. Outpatient Attender: MAGED WHITAKER NP ED-IMAG 2019 01:59:00 PM EST - 04/27/2019 02:00:00 PM EST SCREENING [facility] SCREENING Patient discharged. Outpatient Attender: MAGED WHITAKER NP CPSCAORT-CPSGNOBG 12/2019 01:50:00 PM EST - 04/20/2019 01:51:[address] [facility] Patient discharged. [facility] [address] [place] [address] 04/17/2019 12:00:00 AM EST [facility] Inpatient Attender: FAUSTINA Mayer MDAttender: PORFIRIO BLANCHARD MDAttender: PORFIRIO BLANCHARD MDAdmitter: PORFIRIO BLANCHARD MD ER-2EAST 04/08/2019 04 :56:00 PM EST - 04/10/2019 03:17:00 PM EST [facility] Patient discharged. Emergency Attender: Andrei Del Angel PAAttender: Andrei GREY ED-ED 04/07/2019 03:08:00 AM EST - 04/07/2019 06:14:00 AM EST VOMITING [facility] VOMITING Patient discharged. Outpatient CPSCAORT-LABEJN 04/04/2019 09:03:[address] [facility] Emergency Attender: Srini Olvera AAttender: Andrei Del Angel PAAttender: Andrei GREY ED-ED 04/04/2019 06:16:00 AM EST - 04/04/2019 08:58:00 AM EST NAUSEA STOMACH PAINS [facility] NAUSEA STOMACH PAINS Patient discharged. Outpatient Attender: ИВАН KOTHARI MD 01/17/2019 02:54:00 PM [facility] Emergency Attender: FAUSTINA MATA MD ER-ER 11/07/2018 06:08:00 PM EDT - 11/07/2018 07:55:00 PM [facility] Outpatient Attender: ИВАН KOTHARI MD 10/17/2018 12:56:00 PM [facility] Outpatient Attender: ИВАН KOTHARI MD 09/22/2018 03:31:00 PM [facility] Outpatient Attender: ИВАН KOTHARI MD ER-ASROXANNA 11/03/2017 08:43:00 AM [facility] Outpatient Attender: ИВАН KOTHARI MD ER-ASROXANNA 09/22/2017 06:23:00 AM [facility] Outpatient Attender: ИВАН KOTHARI MD ER-ASUR 05/05/2017 06:28:00 AM [facility] Outpatient Attender: TONYA ROGERS MDAttender: BAMBI ROGERS MD ER-ASUR 09/14/2016 06:36:00 AM EDT [facility] Immunizations Vaccine Date Status Description Data Source(s) INFLUENZA VIRUS VACCINE QUADRIVALENT 2019- (6 MOS AN D UP) 01/02/2020 12:00:00 AM EDT completed [facility] VARICELLA-ZOSTER VIRUS GLYCOPROTEIN E,REC/AS01B ADJUVA NT/PF 04/11/2019 12:00:00 AM EST completed [facility] Medications Medication Brand Name Start Date Product Form Dose Route Admi nistrative Instructions Pharmacy Instructions Status Indications Reaction Description Data Source(s) 5-325 mg 04/24/2020 12:00:00 AM EST tablet 30 TAKE ONE TABLET BY MOUTH EVERY 4 HOURS NEEDED FOR PAIN MAXIMUM DAILY DOSE = SIX TABLETS TAKE ONE TABLET BY MOUTH EVERY 4 HOURS NEEDED FOR PAIN MAXIMUM DAILY DOSE = SIX TABLETS SOLD: 04/24/2020 [facility] gabapentin 800 MG Oral Tablet GABAPENTIN 2020 12:00:00 AM EST ta blet 90 TAKE ONE TABLET BY MOUTH THREE TIMES A DAY FOR PAIN TAKE ONE TABLET BY MOUTH THREE TIMES A DAY FOR PAIN SOLD: 04/24/2020 [facility] gabapentin 800 MG Oral Tablet GABAPENTIN 2020 12:00:00 AM EST ta blet 90 TAKE ONE TABLET BY MOUTH THREE TIMES A DAY FOR PAIN TAKE ONE TABLET BY MOUTH THREE TIMES A DAY FOR PAIN SOLD: 05/26/2020 [facility] 10 mg 03/13/2020 12:00:00 AM EST tablet 20 TAKE ONE TABLET BY MOUTH EVERY 6 HOURS NEEDED FOR NAUSEA TAKE ONE TABLET BY MOUTH EVERY 6 HOURS A S NEEDED FOR NAUSEA SOLD: 03/13/2020 [facility] 250 mg 03/12/2020 12:00:00 AM EST tablet 14 TAKE ONE TABLET BY MOUTH TWICE A DAY FOR 7 DAYS TAKE ONE TABLET BY MOUTH TWICE A DAY FOR 7 DAYS SOLD: 2019 [facility] Bisacodyl 5 MG Delayed Release Oral Tablet [Dulcolax] Dulcol ax 01/24/2020 12:00:00 AM EDT ORAL active Enmanuel ALVARES ([facility], ) POLYETHYLENE GLYCOL 3350 142 MG/ML Oral Solution [Miralax] M iralax 01/24/2020 12:00:00 AM EDT active Enmanuel ALVARES ([facility], ) 4 mg 01/23/2020 12:00:00 AM EDT tablet,disintegrating 3 0 DISSOLVE 1 TABLET ON TONGUE EVERY 6 HOURS NEEDED FOR NAUSEA FOR 10 DAYS DISSOLVE 1 TABLET ON TONGUE EVERY 6 HOURS NEEDED FOR NAUSEA FOR 10 DAYS SOLD: 03/08/2020 [facility] 4 mg 01/23/2020 12:00:00 AM EDT tablet,disintegrating 3 0 DISSOLVE 1 TABLET ON TONGUE EVERY 6 HOURS NEEDED FOR NAUSEA FOR 10 DAYS DISSOLVE 1 TABLET ON TONGUE EVERY 6 HOURS NEEDED FOR NAUSEA FOR 10 DAYS SOLD: 04/24/2020 [facility] 4 mg 01/23/2020 12:00:00 AM EDT tablet,disintegrating 3 0 DISSOLVE 1 TABLET ON TONGUE EVERY 6 HOURS NEEDED FOR NAUSEA FOR 10 DAYS DISSOLVE 1 TABLET ON TONGUE EVERY 6 HOURS NEEDED FOR NAUSEA FOR 10 DAYS SOLD: 01/23/2020 [facility] 0.1 % 01/03/2020 12:00:00 AM EDT cream 80 APPLY AROUND MOUTH TWO TIMES A DAY NEEDED APPLY AROUND MOUTH TWO TIMES A DAY NEEDED SOLD: 01/11/2020 [facility] 0.1 % 01/03/2020 12:00:00 AM EDT cream 80 APPLY AROUND MOUTH TWO TIMES A DAY NEEDED APPLY AROUND MOUTH TWO TIMES A DAY NEEDED SOLD: 02/27/2020 [facility] 0.1 % 01/03/2020 12:00:00 AM EDT cream 80 APPLY AROUND MOUTH TWO TIMES A DAY NEEDED APPLY AROUND MOUTH TWO TIMES A DAY NEEDED SOLD: 03/30/2020 [facility] 750 mg 10/30/2019 12:00:00 AM EDT tablet 20 TAKE ONE TABLET BY MOUTH EVERY 12 HOURS FOR 10 DAYS TAKE ONE TABLET BY MOUTH EVERY 12 HOURS FOR 10 DAYS SO LD: 10/30/2019 [facility] 40 mg 09/11/2019 12:00:00 AM EDT tablet,delayed release (DR/EC) 30 TAKE ONE TABLET BY MOUTH EVERY DAY TAKE ONE TABLET BY MOUTH EVERY DAY SOLD: 10/30/2019 [facility] 40 mg 09/11/2019 12:00:00 AM EDT tablet,delayed release (DR/EC) 30 TAKE ONE TABLET BY MOUTH EVERY DAY TAKE ONE TABLET BY MOUTH EVERY DAY SOLD: 09/26/2019 [facility] 40 mg 09/11/2019 12:00:00 AM EDT tablet,delayed release (DR/EC) 30 TAKE ONE TABLET BY MOUTH EVERY DAY TAKE ONE TABLET BY MOUTH EVERY DAY SOLD: 01/02/2020 [facility] 40 mg 09/11/2019 12:00:00 AM EDT tablet,delayed release (DR/EC) 30 TAKE ONE TABLET BY MOUTH EVERY DAY TAKE ONE TABLET BY MOUTH EVERY DAY SOLD: 11/29/2019 [facility] 500 mg 09/05/2019 12:00:00 AM EDT tablet 20 TAKE 1 TABLET BY MOUTH EVERY 12 HOURS FOR 10 DAYS TAKE 1 TABLET BY MOUTH EVERY 12 HOURS FOR 10 DAYS SOLD : 09/05/2019 [facility] gabapentin 800 MG Oral Tablet GABAPENTIN 06/21/2019 12:00:00 AM EDT ta blet 90 TAKE ONE TABLET BY MOUTH THREE TIMES A DAY FOR PAIN TAKE ONE TABLET BY MOUTH THREE TIMES A DAY FOR PAIN SOLD: 08/15/2019 [facility] gabapentin 800 MG Oral Tablet GABAPENTIN 06/21/2019 12:00:00 AM EDT ta blet 90 TAKE ONE TABLET BY MOUTH THREE TIMES A DAY FOR PAIN TAKE ONE TABLET BY MOUTH THREE TIMES A DAY FOR PAIN SOLD: 10/30/2019 [facility] gabapentin 800 MG Oral Tablet GABAPENTIN 06/21/2019 12:00:00 AM EDT ta blet 90 TAKE ONE TABLET BY MOUTH THREE TIMES A DAY FOR PAIN TAKE ONE TABLET BY MOUTH THREE TIMES A DAY FOR PAIN SOLD: 06/29/2019 [facility] gabapentin 800 MG Oral Tablet GABAPENTIN 06/21/2019 12:00:00 AM EDT ta blet 90 TAKE ONE TABLET BY MOUTH THREE TIMES A DAY FOR PAIN TAKE ONE TABLET BY MOUTH THREE TIMES A DAY FOR PAIN SOLD: 11/29/2019 [facility] gabapentin 800 MG Oral Tablet GABAPENTIN 06/21/2019 12:00:00 AM EDT ta blet 90 TAKE ONE TABLET BY MOUTH THREE TIMES A DAY FOR PAIN TAKE ONE TABLET BY MOUTH THREE TIMES A DAY FOR PAIN SOLD: 09/26/2019 [facility] gabapentin 800 MG Oral Tablet GABAPENTIN 06/21/2019 12:00:00 AM EDT ta blet 90 TAKE ONE TABLET BY MOUTH THREE TIMES A DAY FOR PAIN TAKE ONE TABLET BY MOUTH THREE TIMES A DAY FOR PAIN SOLD: 01/02/2020 [facility] 100 mg 05/17/2019 12:00:00 AM EST capsule 60 TAKE ONE CAPSULE BY MOUTH TWICE A DAY WITH FOOD NEEDED TAKE ONE CAPSULE BY MOUTH TWICE A DAY WI TH FOOD NEEDED SOLD: 06/29/2019 [facility] 100 mg 05/17/2019 12:00:00 AM EST capsule 60 TAKE ONE CAPSULE BY MOUTH TWICE A DAY WITH FOOD NEEDED TAKE ONE CAPSULE BY MOUTH TWICE A DAY WI FOOD NEEDED SOLD: 11/29/2019 [facility] 100 mg 05/17/2019 12:00:00 AM EST capsule 60 TAKE ONE CAPSULE BY MOUTH TWICE A DAY WITH FOOD NEEDED TAKE ONE CAPSULE BY MOUTH TWICE A DAY WI FOOD NEEDED SOLD: 10/30/2019 [facility] 100 mg 05/17/2019 12:00:00 AM EST capsule 60 TAKE ONE CAPSULE BY MOUTH TWICE A DAY WITH FOOD NEEDED TAKE ONE CAPSULE BY MOUTH TWICE A DAY [facility] FOOD NEEDED SOLD: 09/26/2019 [facility] 100 mg 05/17/2019 12:00:00 AM EST capsule 60 TAKE ONE CAPSULE BY MOUTH TWICE A DAY WITH FOOD NEEDED TAKE ONE CAPSULE BY MOUTH TWICE A DAY [facility] FOOD NEEDED SOLD: 08/15/2019 [facility] 100 mg 05/17/2019 12:00:00 AM EST capsule 60 TAKE ONE CAPSULE BY MOUTH TWICE A DAY WITH FOOD NEEDED TAKE ONE CAPSULE BY MOUTH TWICE A DAY [facility] FOOD NEEDED SOLD: 05/26/2019 [facility] 4 mg 05/04/2019 12:00:00 AM EST tablet,disintegrating 3 0 DISSOLVE ONE TABLET ON TONGUE EVERY 6 HOURS NEEDED FOR NAUSEA DISSOLVE ONE TABLET ON TONGUE EVERY 6 HOURS NEEDED FOR NAUSEA SOLD: 10/11/2019 [facility] 4 mg 05/04/2019 12:00:00 AM EST tablet,disintegrating 3 0 DISSOLVE ONE TABLET ON TONGUE EVERY 6 HOURS NEEDED FOR NAUSEA DISSOLVE ONE TABLET ON TONGUE EVERY 6 HOURS NEEDED FOR NAUSEA SOLD: 05/09/2019 [facility] 4 mg 05/04/2019 12:00:00 AM EST tablet,disintegrating 3 0 DISSOLVE ONE TABLET ON TONGUE EVERY 6 HOURS NEEDED FOR NAUSEA DISSOLVE ONE TABLET ON TONGUE EVERY 6 HOURS NEEDED FOR NAUSEA SOLD: 11/29/2019 [facility] 4 mg 05/04/2019 12:00:00 AM EST tablet,disintegrating 3 0 DISSOLVE ONE TABLET ON TONGUE EVERY 6 HOURS NEEDED FOR NAUSEA DISSOLVE ONE TABLET ON TONGUE EVERY 6 HOURS NEEDED FOR NAUSEA SOLD: 09/05/2019 [facility] 4 mg 05/04/2019 12:00:00 AM EST tablet,disintegrating 3 0 DISSOLVE ONE TABLET ON TONGUE EVERY 6 HOURS NEEDED FOR NAUSEA DISSOLVE ONE TABLET ON TONGUE EVERY 6 HOURS NEEDED FOR NAUSEA SOLD: 07/14/2019 [facility] 25 mg 04/07/2019 12:00:00 AM EST tablet 30 TAKE ONE TABLET BY MOUTH EVERY 8 HOURS TAKE ONE TABLET BY MOUTH EVERY 8 HOURS SOLD: 04/07/2019 [facility] 40 mg 03/06/2019 12:00:00 AM EST tablet,delayed release (DR/EC) 30 TAKE ONE TABLET BY MOUTH EVERY DAY TAKE ONE TABLET BY MOUTH EVERY DAY SOLD: 04/17/2019 [facility] 100 mg 03/06/2019 12:00:00 AM EST capsule 60 TAKE ONE CAPSULE BY MOUTH TWICE A DAY WITH FOOD NEEDED TAKE ONE CAPSULE BY MOUTH TWICE A DAY WI TH FOOD NEEDED SOLD: 04/17/2019 [facility] 40 mg 03/06/2019 12:00:00 AM EST tablet,delayed release (DR/EC) 30 TAKE ONE TABLET BY MOUTH EVERY DAY TAKE ONE TABLET BY MOUTH EVERY DAY SOLD: 05/26/2019 [facility] 40 mg 03/06/2019 12:00:00 AM EST tablet,delayed release (DR/EC) 30 TAKE ONE TABLET BY MOUTH EVERY DAY TAKE ONE TABLET BY MOUTH EVERY DAY SOLD: 06/29/2019 [facility] 40 mg 03/06/2019 12:00:00 AM EST tablet,delayed release (DR/EC) 30 TAKE ONE TABLET BY MOUTH EVERY DAY TAKE ONE TABLET BY MOUTH EVERY DAY SOLD: 08/15/2019 [facility] gabapentin 800 MG Oral Tablet GABAPENTIN 11/09/2018 12:00:00 AM EDT ta blet 90 TAKE 1 TABLET BY MOUTH 3 TIMES A DAY FOR PAIN TAKE 1 TABLET BY MOUTH 3 TIMES A DAY FOR PAIN SOLD: 05/26/2019 [facility] 800 mg 11/09/2018 12:00:00 AM EDT tablet 90 TAKE 1 TABLET BY MOUTH 3 TIMES A DAY FOR PAIN TAKE 1 TABLET BY MOUTH 3 TIMES A DAY FOR PAIN SOLD: 04/17/2019 [facility] Insurance Providers Payer name Policy type / Coverage type Policy ID Covered republican ID Covered republican's relationship to scherer Policy Scherer Plan Information [facility] [id number] SP [id number] [employer] [id number] S [id number] [employer] [id number] [employer] [id number] S [id number] ABDIFATAH [id number] [facility] [id number] S [id number] [employer] [id number] S [id number] ANSI-Commercial [id number] ANSI-Commercial [id number] ANSI-Commercial [id number] ANSI-Commercial [id number] ANSI-Commercial [id number] ANSI-Commercial [id number] ANSI-Commercial [id number] ANSI-Commercial [id number] ANSI-Commercial [id number] ANSI-Commercial [id number] ANSI-Commercial [id number] ANSI-Commercial [id number] ANSI-Commercial [id number] ANSI-Commercial [id number] ANSI-Commercial [id number] [facility] [place] Medicaid [id number] Self [id number] [place] [id number] S [id number] ABDIFATAH [id number] SP [id number] Abdifatah Care [place] Medicaid [id number] Self [id number] ABDIFATAH MEDICAID [id number] Jocelyn 7 [id number] ABDIFATAH RECURRING [id number] 18 [id number] ABDIFATAH CARE [id number] S [id number] ABDIFATAH [id number] 18 [id number] ABDIFATAH -I/P [id number] 18 [id number] CLINIC REFERRAL [facility] [id number] 18 [id number] BLUE CROSS [id number] S [id number] BL[employer]OSS [id number] S [id number] BLUE CROSS [facility] PLUS -O/P [id number] 18 [id number] BLUE CROSS [id number] S [id number] [facility] PLUS -CLINIC [id number] 18 [id number] [facility]IC [id number] [facility] [id number] 18 [id number] [facility] -O/P [id number] Problems, Conditions, and Diagnoses Code Display Name Description Problem Type Effective Dates Data Source(s) M79.5 Residual foreign body in soft tissue RESIDUAL FO REIGN BODY IN SOFT TISSUE Diagnosis 04/24/2020 06:55:[address] 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 ACQUIRED ABSENCE OF OTHER SPECIFIED PARTS OF DIGES Diagnosis 09/04/2019 02:44:0 0 PM [facility] K76.0 Fatty (change of) liver, not elsewhere c lassified FATTY (CHANGE OF) LIVER, NOT ELSEWHERE CLASSIFIED Diagnosis 09/04/2019 02:44:00 PM [facility] R10.32 Left lower quadrant pain LEFT LOWER QUADRANT PAIN Diag nosis 09/04/2019 02:44:00 PM [facility] R10.31 Right lower quadrant pain RIGHT LOWER QUADRANT PAIN Di agnosis 09/04/2019 02:44:00 PM [facility] Z12.31 Encounter for screening mammogram for ma lignant neoplasm of breast ENCNTR SCREEN MAMMOGRAM FOR MALIGNANT NEOPLASM OF BREAST Diagnosis 01:59:00 PM [facility] K57.32 Diverticulitis of large inte hang without perforation or abscess without bleeding DVTRCLI OF LG INT W/O PERFORATION OR ABSCESS W/O B Diagnosis 04/08/2019 04:56:00 PM [facility] K57.92 Diverticulitis of intestine, part unspecified, without perforation or abscess without bleeding DVTRCLI OF INTEST, PART UNSP, W/O PERF O R ABSCESS W/O BLEED Diagnosis 04/08/2019 04:56:00 PM EST [facility] Surgeries/Procedures Procedure Description Date Indications Data Source(s) REMOVAL FOREIGN BODY FOOT DEEP 04/24/2020 12:00:[address] [facility] EXCISION INTERDIGITAL TERAN NEUROMA SINGLE EACH 04/24 12:00:[address] [facility] LEVEL IV SURG PATHOLOGY GROSS&MICROSCOPIC EXAM TISSUE EXAM B Y PATHOLOGIST 04/24/2020 12:00:[address] [facility] Unclassified drugs 04/24/2020 12:00:[address] [facility] Injection, propofol, 10 mg 04/24/2020 12:00:[address] [facility] Injection, fentanyl citrate, 0.1 mg 04/24/2020 12:00:[address] [facility] Injection, midazolam hydrochloride, per 1 mg 12:00:[address] [facility] Injection, dexamethasone sodium phosphate, 1mg 021 12:00:[address] [facility] Injection, cefazolin sodium, 500 mg 04/24/2020 12:00:[address] [facility] Extirpation of Matter from Left Foot Sub cutaneous Tissue and Fascia, Open Approach EXTIRPATE OF MATTER FROM L FOOT SUBCU/FASCIA, OPEN ZINA DAO 04/24/2020 12:00:[address] [facility] Excision of Tibial Nerve, Open Approach EXCISION OF TIBIAL N ERVE, OPEN APPROACH 04/24/2020 12:00:[address] [facility] Hemorrhoidectomy, By Simple Ligature 01/24/2020 12:00: 00 AM EDHermilo LACY ([facility]) RADEX ANKLE COMPLETE MINIMUM 3 VIEWS 08/04/2019 12:00: [address] [facility] EMERGENCY DEPARTMENT VISIT MODERATE SEVERITY 0 12:00:[address] [facility] [id number] SCR MAMMO BI INCL CAD 04/27/2019 12:00:00 AM [facility] Introduction of Other Anti-infective int o Peripheral Vein, Percutaneous Approach 04/08/2019 12:00:00 AM EST [facility] Results ID Date Data Source [id number] 06/01/2020 09:00:00 AM EST [facility] Name Value Range Interpretation Code Description Data Kenia rce(s) Supporting Document(s) SARS coronavirus 2 RNA Not Detected [facility] This lab was ordered by [facility] and reported by [facility]. ID Date Data Source [id number] 04/24/2020 05:05:00 PM [facility] Name: LESLEE GRAHAM : 1960 Age/Sex: 60F Attending Physician: Dahiana Hwang [facility] Rec #: [id number] Admission Date: Room #: Admitting Physician: Report Number: [id number] _ cc: Avinash Cartagena MD Send Report To: Report Status - Signed OPERATIVE NOTE DATE OF SURGERY: April 24, 2020 SURGEON: Dahiana Hwang MD ASSISTING: Candie Arboleda PREOPERATIVE DIAGNOSIS: Foreign body of the left foot. 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 OPERATION: 1. Excision of neuroma of the second intermetatarsal space of the left foot. 2. Removal of foreign body, deep buried in bone, second metatarsal left foot. PATHOLOGY: Neuroma specimen of left foot sent in Formalin. ANESTHESIA: General with 12 ml of 1:1 mix of 1% Lidocaine plain and 0.5% Marcaine plain and 0.5% Marcaine plain 9 ml. TOURNIQUET: Hemostasis was with a pneumatic ankle tourniquet set at 250 mmHg x25 minutes. ESTIMATED BLOOD LOSS: None. INJECTABLES: None. COMPLICATIONS: None. Materials: 3-vicryl 4-0 prolene JUSTIFICATION FOR THE PROCEDURE: The patient is a 60-year-old female who presented to the office with complaint of pain sub second metatarsal and second intermetatarsal space of the left foot.She had this after a hammertoe surgery. She states that a K wire had broken in her foot and only part of the K wire was able to be removed. She continues to experience pain to the point that it became very debilitating and interrupted day to day activities. On x-ray the K wire was seen and found to be protruding slightly from the plantar base of the second metatarsal head, so it was decided to go in and remove the K wire. The procedure risks and benefits were explained in detail to the patient. No guarantees were given or implied. Also the patient was told that there could be a soft tissue mass such as a neuroma and if found this would also be excised. PROCEDURE IN DETAIL: The patient was taken back to the operating room and placed in supine position and anesthesia was administered. The foot was scrubbed, prepped and draped in the usual sterile manner. Attention was then drawn to the left foot where the above mentioned anesthetic was injected. The foot was exsanguinated and the ankle tourniquet inflated to 250 mmHg. A lazy S incision was made over the second intermetatarsal space. Dissection was carried through t he subcutaneous tissues with cauterization ligation of vessels as necessary. The intermetatarsalligament was identified and resected. The K wire was found protruding about 3 to4 mm from the plantar aspect of the second metatarsal neck. This was removed from bone using the needle school boat driver. The area was copiously lavaged. The area of the second metatarsal space was then inspected and a neuroma was identified and this was also excised and placed in a formalin jar and sent to pathology. The area was copiously lavaged. The area was closed subcutaneously with 3-0 Vicryl and skin with 4-0 Prolene. The remainder of the anesthetic was injected. Hyperemia noticed to all toes upon deflation of the tourniquet. Xeroform dry sterile dressing applied to the left foot. The patient will follow up in my office next week for first postop dressing change. She will now go backto PACU and be discharged once criteria has been met. REPORT SIGNATURE ON FILE Dictated By: Dahiana Hwang DPM <Elec tronically signed by Dahiana Hwang DPM> 04/29/20 1655 Dictation Date/Time: 04/24/20 0829 Transcribed Date/Time: 04/24/20 170/SHUKRI Name Value Range Interpretation Code Description Data Kenia rce(s) Supporting Document(s) ID Date Data Source [id number] 04/30/2020 09:49:[address] [facility] Imaging Services Department Imaging Report [address] [address] %(RAD)RES..mtdd.print.filter("line") Name: LESLEE GRAHAM James : 1960 Age/Sex: 60F Ordering Provider: RIANA Martinez Med Rec #: [id number] Reg Status: DEP REF Room #: Date of Service: 04/29/20 Report Number: [id number] cc: Send Report To: [id number] BD/Bone Densitometry Reason for exam: SCREENING [id number]Ov5CHFB9CEXPHBFvxg5DNQDUCVVZF3ZNlr9i3LEREXVwXN3C MRSultl2ROIFZWCMgChZrbNESaTBIY1WGnwtvRYMBJC3UFKKNNyo2k7mzFoWmBbO2cF+6A/nP9itu4La dgqsZ7NNpez1XqvJwfjqumj5Pd1Ih5541+PrNcfP LIegUg6r86vzxkh8asYhfWqtbZuQTnYLhy6bl6CKBEiQFcPsjx3Tb6BLNW5SHkPrVPxXvjBpqUDQeaEF LcOXgZbTAqtpOjpd1e9o0p9bToczUZ3gOwAQH9mae9vWR8/1UZ5SArJfCDpWLkCA0Qzqgu8uzw4TSyCt 7RHOskWILPfKOgT8HnKh1JIDblUMwaLzHWi5EFzYbE TUHm7tcrDHX7c+cMTaXTiOUlLs02UWv1YvRFlJOnFCkXJj+6cD/xTuPXov/JOj/5Fd9o802bKqLAFLoF OnBZl4Nx8H93404n1w3/f/QzgigY1yh5QiFVlP3H7vM3jJOxC+lKet19YFAuemxMc1+oWROU1CY/4E5A Heacici7QPU56y839HqlDLAWb1rj3HQ2S0LZc46U0O 0Urwp4n9SUz2WOGdSM9RzmodE3/BbCiiMT5v3/faZXb1Z2x6eIX36WVvDK/4UEaaFm++JAMBl78P7wVB 3/ibUAt8hj0R10oR4GtrWOnOrxxE51dHrTQtSTjTWxTY2K6rDyc+7ff/K+g52bO+tG4Yw2s2X7cwe6Jy Z1D+bXdF4IsZt7rLPz/cgmX6+62fw/LIL5OhRxKkC7 aCN14Kfr+/TX/B8k9+QPQCXxHazb9lWyzXvZ+jwrzBgcrBPUpatdirTdblOOg8k4uS62W/mqiBu5mlkO Cpxk+bovKDVxKZON9JQHo9gOhE/g9A3xM/odhGm9bNbWZ1wEpYghlGunE+lYEnbquAhs7tFHg7FKPENB aBNN/2UGZHH9H1XOBPeKWWNNkM+f0009Xix/93GJDA rTWsm/KbbKmnXGq38L95qMvGkCLcY+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 Report is in PDF folder. REPORT SIGNATURE ON FILE Reported By: Arias Chan MD <Electronically signed by Yasemin Chan MD> 04/30/20 1050 Dictation Date/Time: 04/29/20 1200 Transcribed Date/Time: 04/30/20 0949 Retail Cashier: LISETTE Name Value Range Interpretation Code Description Data Kenia rce(s) Supporting Document(s) ID Date Data Source [id number] 04/29/2020 04:12:00 PM [facility] Imaging Services Department Imaging Report [address], [place] [address] Name: LESLEE GRAHAM : 1960 Age/Sex: 60F Ordering Provider: RIANA Martinez Med Rec #: [id number] Date of Service: 04/29/20 Report Number: [id number] cc: RIANA Martinez; Avinash Cartagena MD Send Report To: [id number] [facility]/Screening [facility] w [employer] CAD Reason for Exam: SCREENING Patient States Last CBE: 04-22-20 Is this a follow up exam: Follow up to: Patient's Anabelle Model Lifetime risk of developing breast cancer: 5.4% Comparison is made to 04/27/2019 and 11/01/2017 FINDINGS: Craniocaudad and oblique views of the breasts were obtained and combined with Tomosynthesis views in the same projections. The breasts are composed of scattered fibroglandular densities. There is no dominant mass, suspicious clustered calcification, nor architectural distortion. IMPRESSION: NO MAMMOGRAPHIC EVIDENCE OF MALIGNANCY. YEARLY SCREENING RECOMMENDED. This mammogram was performed digitally and interpreted with the aid of ICAD, an FDA-approved, computer-aided detection system. OVERALL FINAL ASSESSMENT OF BREAST COMPOSITION: BIRADS CLASSIFICATION: B DESCRIPTION: There are scattered areas of fibroglandular density. OVERALL FINAL ASSESSMENT OF FINDINGS: BIRADS CLASSIFICATION: 1 DESCRIPTION: NEGATIVE. REPORT SIGNATURE ON FILE 04/30/20 105 Reported By: Arias Chan MD <Electronically signed by Yasemin Chan MD>04/30/20 105 Dictation Date/Time: 04/29/20 1224 Transcribed Date/Time: 04/29/20 1612 Retail Cashier: MELIZA Name Value Range Interpretation Code Description Data [facility] rce(s) Supporting Document(s) ID Date Data Source [id number] 04/25/2020 02:24:00 PM [facility] Name Value Range Interpretation Code Description Data [facility] rce(s) Supporting Document(s) ID Date Data Source [id number] 04/24/2020 10:57:00 AM [facility] Hospital Name: LESLEE GRAHAM : 1960 Age/Sex: 60F Ordering Provider: Dahiana Hwang DPM [facility] Rec #: [id number] Reg Status: [facility] Room #: Date of Service: 04/24/20 Report Number: [id number] cc: Send Report To: [id number] XRP/XR C-Arm No Charge Reason for exam: FOREIGN BODY - LEFT FOOT FINDINGS: Fluoroscopy was used during the OR procedure performed same date of service. Forcomplete details, please see OP report. Fluoroscopy time in seconds: 2 Number of Exposures: 2 Time Portable Image Performed: Contrast Agent in ml: Method of Administration: REPORT SIGNATURE ON FILE Reported By: Dahiana Hwang DPM 04/24/20 1057 Dictation Date/Time: 04/24/20 2964 Transcribed Date/Time: 04/24/20 1057 Retail Cashier: LISETTE Name Value Range Interpretation Code Description Data [facility] rce(s) Supporting Document(s) ID Date Data Source [id number] 04/19/2020 08:27:[address] [facility] Name Value Range Interpretation Code Description Data Kenia rce(s) Supporting Document(s) Respiratory specimen severe acute respir atory syndrome coronavirus 2 (SARS-CoV-2) RNA Negative (qualifier value) [facility] This lab was ordered by [facility] and reported by . ID Date Data Source [id number] 04/19/2020 08:26:00 PM [facility] Name Value Range Interpretation Code Description Data Kenia rce(s) Supporting Document(s) SARS-CoV-2 RNA INHOUSE Negative Normal (applies to non-n umeric results) [facility] THIS IS A [facility] REPORTABLE COMMUNICABLE DISEASE. Testing was performed using the Spyder Lynk COVID-19 MDx Assay. This test has been authorized by FDA under an (Emergency Use Authorization) EUA for use by authorized laboratories for individuals who are suspected of COVID-19 by their healthcare provider. This test is only authorized for the duration of the declaration that circumstances exist justifying the authorization of emergency use of in vitro diagnostic tests for detection and/or diagnosis of SARS-CoV-2. Methodology: Endpoint RT-PCR. Fact sheets for this EUA assay can be found at the following links: Providers: https://www.fda.gov/media/796288/download Patients : https://www.fda.gov/media/506175/download THIS IS A [facility] REPORTABLE COMMUNICABLE DISEASE Negative results do not preclude SARS-CoV-2 infection and should not be used as the sole basis for patient management decisions. Negative results must be combined with clinical observations,patient history, and epidemiological information. ID Date Data Source [id number] 04/17/2020 06:52:00 AM [facility] Imaging Services Department Imaging Report [address] [place] [id number] %(RAD)RES..mtdd.print.filter("line") Name: LESLEE GRAHAM : 1960 Age/Sex: 59F Ordering Provider: Dahiana Hwang DPM Med Rec #: [id number] Reg Status: DEP REF Room #: Date of Service: 04/16/20 Report Number: [id number] cc:Dahiana Hwang DPM; Avinash Cartagena MD Send Report To: [id number] XRP/XR Foot Lt Min. 3 Views Reason for exam: PAIN LEFT FOOT FINDINGS: Comparison: Is made to a prior study from 05/18/16. Post surgical changes are present at the first and second metatarsals. Degenerative changes are identified at the interphalangeal joint. No evidence of an acute fracture is identified. A spur is present at the plantar surface ofthe calcaneus. Soft tissues appear unremarkable. IMPRESSION: Post surgical and degenerative changes. Heal is appropriate. No acute findings. REPORT DICTATED BY ARIAS GILES, REVIEWED AND SIGNED BY DR. ELLIOTT Time portable performed: Fluoroscopy time in seconds: Number of Exposures: Contrast Agent in ml: Method of Administration: REPORT SIGNATURE ON FILE Reported By: Shashank Elliott MD <Electronically signed by Shashank Elliott MD> 04/17/20 1211 Dictation Date/Time: 04/16/20 1526 Transcribed Date/Time: 04/17/20 0652 Retail Cashier: FOREIGN Name Value Range Interpretation Code Description Data [facility]ia rce(s) Supporting Document(s) ID Date Data Source [id number] 03/11/2020 11:59:00 PM EST [facility] Name Value Range Interpretation Code Description Data Kenia rce(s) Supporting Document(s) Sodium 140 mmol/L 136-145 Normal (applies to non-numeric resul ts) [facility] Potassium 3.5-5.1 Normal (applies to non-numeric resul ts) [facility] Chloride 103 mmol/L 98-107 Normal (applies to non-numeric resul ts) [facility] Carbon Dioxide CO2 21-32 Normal (applies to non-numer ic results) [facility] Anion Gap 5.0-16.0 Normal (applies to non-numeric resul ts) [facility] BUN 25 mg/dL 7-18 Above high normal [facility] Creatinine,Serum 0.7-1.2 Normal (applies to non-numeric results) [facility] GFR >60 Normal (applies to non-numeric results) [facility] Glucose Level 120 mg/dL 60-99 Above high normal [facility] Reference range is only applicable when patient is fasting Note the following drug interference: Sulfasalazine Sulfapyridine Can see falsely depressed Can see falsely elevated result with up to 17% results with up to 11% decrease in measurement increase in measurement Recommend patients be collected for this test prior to administration of either drug. Calcium 8.5-10.1 Normal (applies to non-numeric resul ts) [facility] Bilirubin,Total 0.1-1.9 Normal (applies to non-numeric results) [facility] SGOT(AST) 14 U/L 15-37 Below low normal [facility] Note the following drug interference: Sulfasalazine Sulfapyridine Can see falsely depressed Can see falsely elevated result with up to 10% results with up to 10% decrease in measurement increase in measurement Recommend patients be collected for this test prior to administration of either drug. SGPT(ALT) 17 U/L 12-78 Normal (applies to non-numeric resul ts) [facility] Note the following drug interference: Sulfasalazine Sulfapyridine Can see falsely depressed Can see falsely elevated result with up to 29% results with up to 10% decrease in measurement increase in measurement Recommend patients be collected for this test prior to administration of either drug. Alkaline Phosphatase 76 U/L 38-126 Normal (applies to non-num russell results) [facility] can increase Alkaline Phosp le vels up to 2 times the normal adult value. Normal values for children and adolescents are 2 to 3 times the normal adult value. Total Protein 6.0-8.2 Normal (applies to non-numeric re sults) [facility] Albumin Level 3.4-5.0 Normal (applies to non-numeric re sults) [facility] ID Date Data Source [id number] 03/11/2020 11:59:00 PM EST [facility] Name Value Range Interpretation Code Description Data Kenia rce(s) Supporting Document(s) Amylase 169 U/L 25-115 Above high normal [facility]ital ID Date Data Source [id number] 03/11/2020 11:59:00 PM EST [facility] Name Value Range Interpretation Code Description Data Kenia rce(s) Supporting Document(s) Lipase 339 U/L 73-393 Normal (applies to non-numeric resul ts) [facility] ID Date Data Source [id number] 03/11/2020 11:41:00 PM EST [facility] Name Value Range Interpretation Code Description Data Kenia rce(s) Supporting Document(s) White Blood Count 3.5-10.5 Above high normal [facility] Red Blood Count 3.90-5.00 Normal (applies to non-numeric results) [facility] Hemoglobin 12.0-15.5 Normal (applies to non-numeric resul ts) [facility] Hematocrit 34.9-44.5 Normal (applies to non-numeric resul ts) [facility] Mean Corpuscular Volume 81.2-95.1 Normal (applies to non- numeric results) [facility] Mean Corpuscular Hgb 25.6-32.2 Normal (applies to non-num russell results) [facility] Mean Corpuscular Hgb Conc 32.0-36.0 Normal (applies to no n-numeric results) [facility] Red Cell Distribution Width 11.9-15.5 Normal (appli es to non-numeric results) [facility] Platelet Count 231 x10 3/uL 150-450 Normal (applies to non-numeric results) [facility] Mean Platelet Volume 9.4-12.4 Below low normal [facility] Neutrophils% (Auto) 31.0-71.0 Above high normal [facility] Lymphocytes% (Auto) 20.0-55.0 Below low normal [facility] Monocytes% (Auto) 4.0-12.0 Normal (applies to non-numeri c results) [facility] Eosinophils% (Auto) 1.0-8.0 Normal (applies to non-nume manuel results) [facility] Basophils% (Auto) 0.0-2.0 Normal (applies to non-numeri c results) [facility] Immature Granulocytes% (Auto) 0.0-2.0 Normal (zina lies to non-numeric results) [facility] Neutrophils# (Auto) 1.50-6.20 Above high normal [facility] Lymphocytes# (Auto) 1.20-4.00 Normal (applies to non-nume manuel results) [facility] Monocytes# (Auto) 0.00-0.90 Normal (applies to non-numeri c results) [facility] Eosinophils# (Auto) 0.00-0.50 Normal (applies to non-nume manuel results) [facility] Basophils# (Auto) 0.00-0.20 Normal (applies to non-numeri c results) [facility] Immature Granulocytes# (Auto) 0.00-7.00 No rmal (applies to non-numeric results) [facility] ID Date Data Source [id number] 03/12/2020 12:04:[address] [facility] Imaging Services Department Imaging Report [address] [place] [id number] %(RAD)RES..mtdd.print.filter("line") Name: LESLEE GRAHAM : 1960 Age/Sex: 59F Ordering Provider: Lew Mckeon NP Med Rec #: [id number] Reg Status: REG ER Room #: Date of Service: 03/11/20 Report Number: [id number] cc:Lew Mckeon NP; Avinash Cartagena MD Send Report To: EXAM: CT Abdomen and Pelvis Without IV contrast CLINICAL HISTORY:GH generalized abd pain x 5 days TECHNIQUE: Axial computed tomography images of the abdomen and pelvis without intravenous contrast. CONTRAST: No IV contrast. COMPARISON: CT - CT ABDOMEN PELVIS NO CONTRAS - 07/23/18 18:48 EDT FINDINGS: LUNG BASES: The lung bases appear clear. No pleural effusions are seen. LIVER: Unremarkable. GALLBLADDER AND BILE DUCTS:Prior cholecystectomy is noted. PANCREAS: Unremarkable. SPLEEN:Multiple calcified granulomas are noted in the spleen. The spleen is otherwise unremarkable. ADRENAL GLANDS: Unremarkable. KIDNEYS, URETERS, AND BLADDER: The kidneys appear within normal limits. There is no hydronephrosis or hydroureter. No urinary calculi are seen. STOMACH AND BOWEL:Multiple di verticula are noted along the sigmoid colon with some minimal surrounding edema there is no evidence of bowel obstruction. No definite bowel wall thickening is seen. APPENDIX:Prior appendectomy is noted. PERITONEUM: No free fluid. No free air. LYMPH NODES: No lymphadenopathy is evident. REPRODUCTIVE: Unremarkable as visualized. VASCULATURE:Some scattered calcifications are noted along the aorta and its branches. There is no evidence of aortic aneurysm. BONES: No aggressive appearing osseous lesion. No acute osseous pathology evident. IMPRESSION: Likely mild diverticulitis of the sigmoid colon. Time portable performed: Fluoroscopy time in seconds: Number of Exposures: Contrast Agent in ml: Method of Administration: REPORT SIGNATURE ON FILE Reported By: Bob Rich MD 03/12/203 Dictation Date/Time: 03/12/203 Transcribed Date/Time: 03/12/203 Retail Cashier: Name Value Range Interpretation Code Description Data Kenia rce(s) Supporting Document(s) ID Date Data Source [id number] 03/11/2020 11:09:00 PM [facility] Collected By: Nurse Initials: cs Time Collected: 2254 Collected By: Nurse Initials: cs Time Collected: 2254 Name Value Range Interpretation Code Description Data Kenia rce(s) Supporting Document(s) Color,Urine Colorl-Dk Y Normal (applies to non-numeric res ults) [facility] Clarity,Urine Clear Normal (applies to non-numeric re sults) [facility] Specific [place],Urine 1.005-1.030 Normal (applies to non- numeric results) [facility] pH,Urine 5.0-8.0 Normal (applies to non-numeric resul ts) [facility] Glucose,Urine Negative Normal (applies to non-numeric re sults) [facility] Ketones,Urine Negative Normal (applies to non-numeric re sults) [facility] Blood,Urine Negative Normal (applies to non-numeric resu lts) [facility] Bilirubin,Urine Negative Normal (applies to non-numeric results) [facility] Urobilinogen,Urine 0.2-1.0 Normal (applies to non-numer ic results) [facility] Leukocyte Esterase,Urine Negative Normal (applies to non -numeric results) [facility] Nitrite,Urine Negative Normal (applies to non-numeric re sults) [facility] ID Date Data Source [id number] 03/11/2020 11:09:00 PM [facility] Collected By: Nurse Initials: cs Time Collected: 2254 Collected By: Nurse Initials: cs Time Collected: 2254 Name Value Range Interpretation Code Description Data Kenia rce(s) Supporting Document(s) RBC,Urine None Seen [facility] WBC,Urine None Seen [facility] Casts,Urine None Seen Normal (applies to non-numeric resu lts) [facility] Epithelial Cells,Urine None - Few Normal (applies to non-n umeric results) [facility] Squamous Cells,Urine None Seen [facility] Bacteria,Urine None Seen [facility] Mucus,Urine None [facility] ID Date Data Source [id number] 03/11/2020 11:02:00 PM [facility] Collected By: Nurse Initials: cs Time Collected: 2254 Name Value Range Interpretation Code Description Data Kenia rce(s) Supporting Document(s) Color,Urine Colorl-Dk Y Normal (applies to non-numeric res ults) [facility] Clarity,Urine Clear Normal (applies to non-numeric re sults) [facility] Specific [place],Urine 1.005-1.030 Normal (applies to non- numeric results) [facility] pH,Urine 5.0-8.0 Normal (applies to non-numeric resul ts) [facility] Protein,Urine Negative [facility] Glucose,Urine Negative Normal (applies to non-numeric re sults) [facility] Ketones,Urine Negative Normal (applies to non-numeric re sults) [facility] Blood,Urine Negative Normal (applies to non-numeric resu lts) [facility] Bilirubin,Urine Negative Normal (applies to non-numeric results) [facility] Urobilinogen,Urine 0.2-1.0 Normal (applies to non-numer ic results) [facility] Leukocyte Esterase,Urine Negative Normal (applies to non -numeric results) [facility] Nitrite,Urine Negative Normal (applies to non-numeric re sults) [facility] ID Date Data Source [id number] 03/09/2020 09:30:00 AM EST [facility] Name Value Range Interpretation Code Description Data Kenia rce(s) Supporting Document(s) SARS coronavirus [address] [facility] This lab was ordered by [facility] and reported by [facility]. ID Date Data Source [id number] 12/09/2019 12:15:[address] [facility] Imaging Services Department Imaging Report [address] [place] [id number] %(RAD)RES..mtdd.print.filter("line") Name: LESLEE GRAHAM : 1960 Age/Sex: 59F Ordering Provider: MATILDA Woodson Med Rec #: [id number] Reg Status: [facility] Room #: Date of Service: 12/07/19 Report Number: [id number] cc:Avinash Cartagena MD Send Report To: [id number] CT/CT Head No Contrast Reason for exam: Had step stool on couch, fell backwards striking head on floor 2 days ago FINDINGS: The ventricular system is normal. No evidence for parenchymal loss is noted. No evidence for masses or mass effect are identified. No evidence for subdural, epidural, or subarachnoid hemorrhage is noted. The bones and soft tissues also appear normal. IMPRESSION: UNREMARKABLE CT SCAN OF THE HEAD WITHOUT INTRAVENOUS CONTRAST. While performing the above CT exam, the following dose reduction techniques wereused: *Automated exposure control *Adjustment of the mA and/or kV according to patient size *Use of iterative reconstruction technique CT Dose in mGy: Contrast Agent: Amount in ml: Method of Administration: REPORT SIGNATURE ON FILE Reported By: Arias Chan MD <Electronically signed by Yasemin Chan MD> 12/11/19 1046 Dictation Date/Time: 12/08/19 1026 Transcribed Date/Time: 12/09/19 1215 Retail Cashier: JAN Name Value Range Interpretation Code Description Data Kenia rce(s) Supporting Document(s) ID Date Data Source [id number] 11/03/2019 08:56:[address] [facility] Imaging Services Department Imaging Report [address] [place] [id number] %(RAD)RES..mtdd.print.filter("line") Name: LESLEE GRAHAM : 1960 Age/Sex: 59F Ordering Provider: Michlele Last MD Med Rec #: [id number] Reg Status: [facility] REF Room #: Date of Service: 11/02/19 Report Number: [id number] cc:Michelle Last MD; Avinash Cartagena MD Send Report To: [id number] XRP/XR L Spine Complete Reason for exam: LBP FINDINGS: Grade 1 anterolisthesis of L4 on L5 is identified. No discrete pars defects are identified. Facet joint hypertrophy is present at the mid to lower lumbar spine. No evidence of an acute fracture is identified. Atherosclerotic disease is identified in the aorta. Remaining soft tissues appear unremarkable. IMPRESSION: Grade 1 anterolisthesis of L4 on L5. No distinct pars defects are identified. Degenerative changes including facet joint hypertrophy are noted. REPORT DICTATED BY ARIAS GILES, REVIEWED AND SIGNED BY DR. QUEZADA. Time portable performed: Fluoroscopy time in seconds: Number of Exposures: Contrast Agent in ml: Method of Administration: REPORT SIGNATURE ON FILE Reported By: Emmanuel Quezada MD <Electronically signed by Emmanuel Quezada MD> 11/03/19 1126 Dictation Date/Time: 11/02/19 1652 Transcribed Date/Time: 11/03/19 0856 Retail Cashier: LISETTE Name Value Range Interpretation Code Description Data Kenia rce(s) Supporting Document(s) ID Date Data Source [id number] 10/28/2019 09:32:00 AM EDT [facility] Name Value Range Interpretation Code Description Data Kenia rce(s) Supporting Document(s) Triglycerides 43 mg/dL <150 Normal (applies to non-numeric re sults) [facility] Cholesterol 166 mg/dL 100-200 Normal (applies to non-numeric resu lts) [facility] LDL Cholesterol Calculated 90 0-130 Normal (applies to n on-numeric results) [facility] HDL Cholesterol 67 mg/dL 40-60 Above high normal [facility] Cholesterol/HDL Ratio 3.6-6.7 Below low normal [facility] ID Date Data Source [id number] 09/04/2019 04:39:00 PM EDT [facility] Exam Number: [id number] OF EXAMINATIO N: 09/04/2019 16:15 EDTCT ABD&PEL W/O IV OR ORAL CONTHISTORY: Abdominal pain. Lower abdominal pain.TECHNIQUE:This CT exam was performed using the following dose reductiontechniques: automated exposure control, adjustment of mA and/or kVaccording to the patient's size, and use of iterative reconstructiontechnique.Standard contiguous axial spiral imaging was obtained from the dome ofthe diaphragms through the symphysis pubis without oral contrast andwithout intravenous contrast administration and with coronalreformatting.FINDINGS:Lower thorax: UnremarkableABDOMEN:Liver: Moderate fatty infiltrationGallbladder and bile ducts: CholecystectomyPancreas: UnremarkableSpleen: Calcified granulomasAdrenals: UnremarkableKidneys and ureters: UnremarkableStomach and bowel: Moderate sigmoid diverticulosis withoutinflammatory changesAppendix: AppendectomyPELVIS:Bladder: Unopacified, grossly unremarkableReproductive: UnremarkableNo free fluid or lymphadenopathyIMPRESSION:Moderate fatty infiltration of the liver. Cholecystectomy. Moderatedegenerative changes of the lower lumbar spineElectronically signed in PS360 by: Dunia Gómez M.D. 09/04/201916:32 EDT Reported By: Valeriy GÓMEZ M.D. Signed By: Em GÓMEZ M.D. Name Value Range Interpretation Code Description Data Kenia rce(s) Supporting Document(s) ID Date Data Source [id number] 09/04/2019 03:47:00 PM EDT [facility] Name Value Range Interpretation Code Description Data Kenia rce(s) Supporting Document(s) GLU 112 mg/dL 70-110 [facility] Patients taking Sulfasalazine may have f alsely depressedGlucose levels. Patients taking Sulfapyridine may havefalsely elevated Glucose levels. Patients should be drawnfor Glucose before the initial administration of eitherdrug. BUN 23 mg/dL 7-23 [facility] CRE 0.797 mg/dL 0.500-1.300 [facility] GFR > 60 mL/min [facility] CHLORIDE 110 mmol/L 99-110 [facility] NA 144 mmol/L 136-147 [facility] POTASSIUM 3.9 mmol/L 3.5-5.1 [facility] TCO2 28 mmol/L 20-33 [facility] ANION GAP 9.9 10.0-20.0 [facility] CA 8.7 mg/dL 8.3-10.7 [facility] ALKALINE PHOS 63 U/L 45-117 [facility] TP 6.6 g/dL 6.0-7.8 [facility] ALB 3.6 g/dL 3.5-5.0 [facility] ESRD Dialysis patient Albumin reference range: 2.9-4.4 g/dL GL 3.0 g/dL 2.3-3.5 [facility] A/G 1.2 1.0-2.5 [facility] T. BILIRUBIN 0.4 mg/dL 0.1-1.1 [facility] [place] Total Bilirubin is n ot recommended forpatients undergoing treatment with eltrombopag (Promacta)due to the potential for falsely elevated results. ALTI 18 U/L 6-54 [facility] Patients taking Sulfasalazine and/or Sul fapyridine may havefalsely depressed ALT levels. Patients should be drawn forALT before the initial administration of either drug. AST 21 U/L 6-38 [facility] Patients taking Sulfasalazine and/or Sul fapyridine may havefalsely depressed AST levels. Patients should be drawn forAST before the initial administration of either drug. ID Date Data Source [id number] 09/04/2019 03:26:00 PM EDT [facility] Name Value Range Interpretation Code Description Data Kenia rce(s) Supporting Document(s) WBC 8.61 x10E3/uL 4.0-10.5 [facility] RBC 4.08 x10E6/uL 4.20-5.40 [facility] Hemoglobin 12.7 g/dL 12.0-16.0 [facility] Hematocrit 37.6 % 37.0-47.0 [facility] MCV 92.2 fL 81.0-99.0 [facility] MCH 31.1 pg 27.0-31.0 [facility] MCHC 33.8 g/dL 32.7-35.6 [facility] RDW 13.4 % 11.5-14.0 [facility] Platelet count 225 x10E3/uL 150-450 N [facility] ital MPV 9.3 fl 6.9-9.5 [facility] Neutrophils 71.0 % 34-64 [facility] Lymphocytes 19.6 % 25-45 L [facility] Monocytes 6.7 % 1.7-10.6 [facility] Eosinophils 1.9 % 0.4-7.0 [facility] Basophils 0.6 % 0.1-2.0 [facility] Imm. Gran. 0.2 % 0.1-2.0 [facility] Abs. Neutro. 6.1 x10E3/uL 1.2-7.6 [facility] Abs. Lymph. 1.7 x10E3/uL 1.0-3.5 [facility] Abs. [place]. 0.6 x10E3/uL 0.1-1.0 [facility] Abs. Eosin. 0.2 x10E3/uL 0.1-0.7 [facility] Abs. Baso. 0.1 x10E3/uL 0.0-0.1 [facility] Abs. Imm. Gran. 0.0 x10E3/uL 0.0-0.1 N [facility] pital ANRBC% 0 % 0 [facility] ID Date Data Source [id number] 09/04/2019 03:06:00 PM EDT [facility] Name Value Range Interpretation Code Description Data Kenia rce(s) Supporting Document(s) URINE COLOR Yellow N [facility] UAPR Clear N [facility] UGLU Negative NEGATIVE [facility] URINE BILIRUBIN Negative NEGATIVE N [facility] UKET Negative NEGATIVE [facility] USG 1.026 1.010-1.025 H [facility] UBLO Negative NEGATIVE N [facility] UpH 7.5 5.0-8.0 N [facility] UPRO Negative Negative N [facility] UUB 0.2 mg/dL 0.2-1.0 [facility] UNIT Negative Negative N [facility] ULEU Negative Negative N [facility] ID Date Data Source [id number] 09/04/2019 06:24:00 PM EDT [facility] terName: Leslee ClementAge: 59 yrsSex: FemaleDOB: 1960MRN: [id number] Date: 09/04/2019Time: 14:44Account#: [id number] 6APrezio MD:Diagnosis: Abdominal pain, unsepcified-.....PRESUMED EARLY DIVERTICULITISPresentation:08/2513:47 Presenting complaint: Patient states: i think my diverticulitis is bk2soquct up again i m having lower abdominal pain and pressure sincethis morning it went away and came back. i've had it quite a bit overthe last few years. Coronavirus Screening: Patient negative for feverand symptoms of lower respiratory illness (e.g., cough, difficultybreathing). Patient denies exposure to infectious person. Patientdenies travel to [place] or affected areas in the 14 days beforeillness onset. Communicable Disease Screen: Negative for fever>/= 100degrees Fahrenheit. Communicable disease screen is negative.14:47 Acuity: Triage 3 wd114:47 Method Of Arrival: Private Vehicle wd114:48 Acuity Assignment: Triage 3 uc1Bqvdnn Assessment:14:50 General: Appears in no apparent distress, Behavior is cooperative. ss8Gnpnvt Screening: (1)Signs/symptoms infection No. Pain: Complains ofpain in suprapubic area Pain currently is 7 out of 10 on a painscale. Scaled used was Verbal Quality of pain is described as crampy,pressure, Pain began this morning. PSS-3 Now I'm going to ask yousome questions that we ask everyone treated here, no matter whatproblem they are here for. It is part of the hospital's policy and ithelps us to make sure we are not missing anything important. Over thepast 2 weeks, have you felt down, depressed, or hopeless? No. Neuro:Level of Consciousness is awake, alert, Oriented to person, place,time. Respiratory: Airway is patent Respiratory effort is even,unlabored, Respiratory pattern is regular, Denies cough, shortness ofbreath. 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 atorvastatin 80 mg oral tab 1 tab once daily2. celecoxib 100 mg Oral cap 1 cap 2 times per day3. gabapentin 800 mg oral tab 1 tab 3 times per day4. multivitamin with minerals oral5. pantoprazole 40 mg oral TbEC 1 tab once daily6. senna 8.6 mg oral cap 2 caps as needed7. tacrolimus 0.1 % Topical oint 2 times per day- PMHx: DIVERTICULITIS; Gastric Reflux; HIGH CHOLESTEROL;- PSHx: C Section; Appendectomy; Cholecystectomy;- Immunization history: Flu vaccine is up to date.- Family history: Reviewed and not pertinent.- Social history: Smoking status: Patient states was never smoker oftobacco. Patient uses street drugs, marijuana, ETOH status UsesETOH Occasionally.- Advance Directives:: Health Care Proxy.- Hospitalizations: : No recent hospitalization is reported.Screenin:23 Abuse screen: Denies threats or abuse. Nutritional screening: No yr3clvkjuzi noted. Offer of HIV testing: patient was previously offeredscreening. Fall Risk IV access (20 points).Assessment:15:23 Reassessment: see triage assessment. Pain: Pain currently is 6 out of sd210 on a pain scale. Derm: Skin is pink, warm & dry. normal. GI: Bowelsounds present X 4 quads. Abd is soft X 4 quads Abd is tender topalpation in suprapubic area, right lower quadrant and left lowerquadrant. GI: Reports nausea, vomiting, Denies constipation,diarrhea. Musculoskeletal: Circulation, motion, and sensation intactRange of motion intact in all extremit ies.16:17 Reassessment: Patient appears in no apparent distress at this time. sd2No changes from previously documented assessment. awaiting CT.17:08 Reassessment: Patient appears in no apparent distress at this time. sd2No changes from previously documented assessment. awaiting CT results.18:07 Reassessment: Patient appears in no apparent distress at this time. sd2No changes from previously documented assessment. awaitingdisposition.Vital Signs:14:52 BP 157 / 75; Pulse 60; Resp 17; Temp 97.8; Pulse Ox 98% ; Weight 77.3 wd1kg; Pain 7/10;18:16 BP 145 / 71; Pulse 56; Resp 12; Temp 97.6(O); Pulse Ox 98% on R/A; qg0Jopd 4/10;ED Course:14:44 Patient arrived in ED. wd114:48 Triage completed. wd115:09 Julee Dodd, RN is Primary Nurse. sd215:22 Patient has correct armband on for positive identification. Placed in zr7pztn. Bed in low position. Call light in reach. Side rails up X 1.Verbal reassurance given. Warm blanket given. Pillow given. Head ofbed Elevated.15:22 Labs drawn. (by ED staff). Urine collected. Clean catch specimen. ao6Kjpond attempts: 20 gauge X 1 in left forearm, Bleeding controlled,band aid applied, catheter tip intact. Inserted saline lock: 20 gaugein left forearm and blood collected.17:[address] sd217:27 Faustina Mata MD is Attending Physician. fcn18:07 Assisted to bathroom. sd218:16 No Physician assisted procedures completed. Discontinued lock intact, ox9uwvojlet controlled, pressure dressing applied, No redness/swellingat site.Administered Medications:15:24 Drug: NS 0.9% 1000 ml [sodium chloride 0.9 % intravenous solution] un1Ksxzc: IV; Rate: bolus; Site: left forearm;18:02 Follow up: IV Status: Completed infusion; IV converted to saline fbglock; IV Intake: 8888dx65:17 Drug: Ondansetron 8 mg [ondansetron HCl 2 mg/mL intravenous solution sd2(4 mL)] Route: IVP; Infused Over: 2 mins; Site: left forearm;18:24 Follow up: Response: Medication administered at discharge. sd218:17 Drug: Ciprofloxacin 500 mg [ciprofloxacin 250 mg tablet (2 tabs)] wl8Irhnp: PO;18:23 Follow up: Response: Medication administered at discharge. pl5Iweghx:18:02 IV: 1000ml; Total: 1000ml. fbgOutcome:18:07 Discharge ordered by . fcn18:16 Disposition: Discharged to home ambulatory. sd218:16 Condition: stable, Condition: chynboqz49:16 Discharge instructions given to patient, Instructed on dischargeinstructions, follow up and referral plans. medication usage,Prescriptions given X 1.18:16 Discharge Assessment: Patient verbalized understanding of dispositioninstructions. Patient has no functional deficits.18:24 Patient left the ED. yn4Eowttjluap:Faustina Mata MD MD fcnGilTani murphy, RN RN fbgDow, Jessica, RN RN xk3FxomuwkbJulee munoz RN RN sd2 Name Value Range Interpretation Code Description Data Kenia rce(s) Supporting Document(s) ID Date Data Source [id number] 09/04/2019 06:24:00 PM EDT [facility] Physician DocumentationClaxbisi-Sanjay Singer edical CenterName: Leslee ClementAge: 59 yrsSex: FemaleDOB: 1960MRN: [id number] Date: 09/04/2019Time: 14:44Account#: [id number] 6APrivate MD:ED Physician Derek MataoDisposition Summary:09/04/19 18:07Discharge OrderedLocation: Home Self Care fcnProblem: new fcnSymptoms: are unchanged fcnCondition: Stable fcnDiagnosis- Abdominal pain, unsepcified - .....PRESUMED EARLY DIVERTICULITIS fcnFollowup: fcn- With: Private Physician- When: 2 - 3 days- Reason: Continuance of careDischarge Instructions:- Discharge Summary Sheet fcn- ABDOMINAL PAIN, Unknown Cause, (Female) fcn- DIVERTICULOSIS fcnForms:- Medication Reconciliation fcn- Medication Reconciliation Form - 2nd Copy fcnPrescriptions:- Cipro 500 mg Oral Tablet- take 1 tablet by ORAL route every 12 hours for 10 days; 20 fcntablet; Refills: 0, Product Selection PermittedHPI:08/2520:28 This 59 yrs old White Female presents to ER via Private Vehicle with fcncomplaints of Abdominal Pain.21:28 This 59 yrs old White Female presents to ER via Private Vehicle with fcncomplaints of Abdominal Pain.21:28 The patient presents with abdominal pain. Onset: The symptoms/episode fcnbegan/occurred this morning. The symptoms do not radiate. Associatedsigns and symptoms: none. Pertinent negatives: blood in stools, chestpain, diarrhea, dysuria, fever, hematuria, nausea, shortness ofbreath, vomiting. 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 atorvastatin 80 mg oral tab 1 tab once daily2. celecoxib 100 mg Oral cap 1 cap 2 times per day3. gabapentin 800 mg oral tab 1 tab 3 times per day4. multivitamin with minerals oral5. pantoprazole 40 mg oral TbEC 1 tab once daily6. senna 8.6 mg oral cap 2 caps as needed7. tacrolimus 0.1 % Topical oint 2 times per day- PMHx: DIVERTICULITIS; Gastric Reflux; HIGH CHOLESTEROL;- PSHx: C Section; Appendectomy; Cholecystectomy;- Immunization history: Flu vaccine is up to date.- Family history: Reviewed and not pertinent.- Social history: Smoking status: Patient states was never smoker oftobacco. Patient uses street drugs, marijuana, ETOH status UsesETOH Occasionally.- Advance Directives:: Health Care Proxy.- Hospitalizations: : No recent hospitalization is reported.ROS:21:28 Constitutional: Negative for weight loss, Neck: Negative for injury, fcnpain, and swelling, Cardiovascular: Negative for chest pain,palpitations, and edema, Respiratory: Negative for shortness ofbreath, cough, wheezing, and pleuritic chest pain, Back: Negative forinjury and pain, MS/Extremity: Negative for injury and deformity,Skin: Negative for injury, rash, and discoloration, Neuro: Negativefor headache, weakness, numbness, tingling, and seizure,Allergy/Immunology: Negative for hives, rash, and allergies,Endocrine: Negative for neck swelling, polydipsia, polyuria,polyphagia, and marked weight changes, Hematologic/Lymphatic:Negative for swollen nodes, abnormal bleeding, and unusual bruising.Abdomen/GI: Positive for abdominal pain, Negative for nausea,vomiting, diarrhea, hematemesis, black/tarry stool, rectal bleeding.Exam:21:28 Constitutional: z Head/Face: Normocephalic, atraumatic. Neck: fcnTrachea midline, no thyromegaly or masses palpated, and no cervicallymphadenopathy. Supple, full range of motion without nuchalrigidity, or vertebral point tenderness. No Meningismus.Chest/axilla: Normal chest wall appearance and motion. Nontenderwith no deformity. No lesions are appreciated. Cardiovascular:Regular rate and rhythm with a normal S1 and S2. No gal lops,murmurs, or rubs. Normal PMI, no JVD. No pulse deficits.Respiratory: Lungs have equal breath sounds bilaterally, clear toauscultation and percussion. No rales, rhonchi or wheezes noted. Noincreased work of breathing, no retractions or nasal flaring. Back:No spinal tenderness. No costovertebral tenderness. Full range ofmotion.21:28 Abdomen/GI: Palpation: soft, mild abdominal tenderness, in the rightlower quadrant and left lower quadrant.Vital Signs:14:52 BP 157 / 75; Pulse 60; Resp 17; Temp 97.8; Pulse Ox 98% ; Weight 77.3 wd1kg; Pain 7/10;18:16 BP 145 / 71; Pulse 56; Resp 12; Temp 97.6(O); Pulse Ox 98% on R/A; di9Uehi 4/10;MDM:17:27 Patient medically screened. fcn21:31 Data reviewed: vital signs, nurses notes. 4:55 Order name: CBC with diff; Complete Time: :55 Order name: CMP; Complete Time: :55 Order name: UA; Complete Time: :6:15 Order name: CT Abdomen and Pelvis - without IV or oral; Complete td5Hwcq: ::55 Order name: NPO; Complete Time: ::55 Order name: Saline Lock; Complete Time: :55 Order name: Vital Signs per policy; Complete Time: : vw7Fnzekwrjo Medications:15:24 Drug: NS 0.9% 1000 ml [sodium chloride 0.9 % intravenous solution] cv9Cxmjv: IV; Rate: bolus; Site: left forearm;18:02 Follow up: IV Status: Completed infusion; IV converted to saline fbglock; IV Intake: 7255gn94:17 Drug: Ondansetron 8 mg [ondansetron HCl 2 mg/mL intravenous solution sd2(4 mL)] Route: IVP; Infused Over: 2 mins; Site: left forearm;18:24 Follow up: Response: Medication administered at discharge. sd218:17 Drug: Ciprofloxacin 500 mg [ciprofloxacin 250 mg tablet (2 tabs)] qx4Zyobp: PO;18:23 Follow up: Response: Medication administered at discharge. mb0Afvwqtunrb:Dispatcher [employer] Faustina Gustafson MD MD fcnDow, Wendy RN RN rx2DaugjlusJulee bradley RN RN hh8VgvswdoTani carrington RN fbg Name Value Range Interpretation Code Description Data Kenia rce(s) Supporting Document(s) ID Date Data Source [id number] 08/07/2019 10:49:[address] [facility] Imaging Services Department Imaging Report [address], [place] [address] %(RAD)RES..mtdd.print.filter("line") Name: LESLEE GRAHAM : 1960 Age/Sex: 59F Ordering Provider: MATILDA Cline Med Rec #: [id number] Reg Status: DEP ER Room #: Date of Service: 08/04/19 Report Number: [id number] cc:Avinash Cartagena MD Send Report To: [id number] XRP/XR Ankle Lt Min. 3 Views Reason for exam: twisted ankle yesterday, lateral pain Correlation is made with a left foot series from 05/18/16. FINDINGS: The bones are osteopenic. No acute fracture or dislocation is identified. There is mild lateral soft tissue swelling. Small spur is seen along the plantar aspect of the calcaneus. Surgical screws/pins are seen at thefirst and second metatarsals which were noted on the previous foot series. IMPRESSION: No fracture/dislocation. Osteopenia. Mild lateral soft tissue swelling. Calcaneal spur. Time portable performed: Fluoroscopy time in seconds: Number of Exposures: Contrast Agent in ml: Method of Administration: REPORT SIGNATURE ON FILE Reported By: Shashank Elliott MD <Electronically signed by Shashank Elliott MD> 08/08/19 0640 Dictation Date/Time: 08/07/19 1019 Transcribed Date/Time: 08/07/19 1049 Retail Cashier: LISETTE Name Value Range Interpretation Code Description Data Kenia rce(s) Supporting Document(s) ID Date Data Source [id number] 04/29/2019 05:59:[address] [facility] Imaging Services Department Imaging Report [address], [place] [address] Name: LESLEE GRAHAM : 1960 Age/Sex: 59F Ordering Provider: RIANA Martinez Med Rec #: [id number] Date of Service: 04/27/19 Report Number: [id number] cc: Rosina Fried MD; RIANA Martinez Send Report To: [id number] MAMMOSCR/Screening Digital Mammo CAD Reason for Exam: SCREENING Patient States Last CBE: over 1 year Is this a follow up exam: Follow up to: Patient's Anabelle Model Lifetime risk of developing breast cancer: 5.4% No fa andrew history of breast carcinoma. Prior examination 04/28/17, 12/11/14, and 11/30/13. FINDINGS: Craniocaudad and oblique views of the breasts were obtained. The breasts are composed of scattered fibroglandular densities. There is no dominant mass, suspicious clustered calcification, nor architectural distortion. IMPRESSION: NO MAMMOGRAPHIC EVIDENCE OF MALIGNANCY. YEARLY SCREENING RECOMMENDED. This mammogram was performed digitally and interpreted with the aid of ICAD, an FDA-approved, computer-aided detection system. OVERALL FINAL ASSESSMENT OF BREAST COMPOSITION: BIRADS CLASSIFICATION: B DESCRIPTION: There are scattered areas of fibroglandular density. OVERALL FINAL ASSESSMENT OF FINDINGS: BIRADS CLASSIFICATION: 1 DESCRIPTION: NEGATIVE. REPORT SIGNATURE ON FILE 05/02/19 0604 Reported By: Trell Angeles MD <Electronically signed by Trell Angeles MD>05/02/19 0604 Dictation Date/Time: 04/28/19 1049 Transcribed Date/Time: 04/29/19 0559 Retail Cashier: LISETTE Name Value Range Interpretation Code Description Data Kenia rce(s) Supporting Document(s) ID Date Data Source [id number] 04/10/2019 12:52:00 PM EST [facility] [address] [address]JUCUIHYWA SUMMARYPATIENT NAME: LESLEE GRAHAM James MR#: [id number] PHYSICIAN: PORFIRIO BLANCHARD MDAUTHOR: Porfirio Blanchard MD DATE: 04/08/19 RM#: [id number] DATE: : 60Summary of HospitalizationReason for AdmissionAbdominal painHospital Xtnksk60 yo F admitted to the medical floor with the impression of acutediverticulitis. The pt was kept NPO. The pt was started on IV NS at 75 cc/hr,IV ciprofloxacin 400 mg IV q12 and IV flagyl 500 mg q6. The pt reported thatshe had a decrease in her abdominal pain. On the 3rd day of her admission, thept's diet was advanced. For breakfast the pt received a clear liquid diet whichshe tolerated. For lunch the pt received a solid food diet, which she alsotolerated without any discomfort. On the day of admission, the pt showed mefull bottles of both ciprofloxacin and flagyl that she had received for thissame diverticulitis problem (but from another hospital). The pt was informedthat now that she has completed 3 days of IV antibiotics and that she isfeeling better. She can now be discharged home to complete the course of oralantibiotics that she received from the other hospital (as she already has thebottles). The pt understood that she will complete the oral antibiotic courseat home.Procedures & Relevant StudiesStudiesEUGENE, [place] [address]DEIDAKBAEK CONSULTATIONDate of : 1960 Name: LESLEE GRAHAM RMedrec Number: [id number] Phys: FAUSTINA MATA MDExam Date: 04/08/2019 Location: ERProcedure: ABDPELW/O, CT ABD&PEL W/O IV OR ORA Rad Numb: [id number] \\EXAM# TYPE/EXAM [id number] CT/CT ABD&PEL W/O IV OR ORAL COATE OF EXAMINATION: 04/08/2019 15:14 ESTCT ABD&PEL W/O IV OR ORAL CONTHISTORY: Left lower quadrant pain with vomitingTECHNIQUE:This CT exam was performed using the following dose reductiontechniques: automated exposure control, adjustment of mA and/or kVaccording to the patient's size, and use of iterative reconstructiontechnique.Standard contiguous axial spiral imaging was obtained from the dome ofthe diaphragms through the symphysis pubis without intravenous or oralcontrast and with coronal reformatting.FINDINGS:Mild mucosal thickening to the mid/distal sigmoid colon is appreciatedwith multiple diverticula and subtle adjacent inflammatory strandingsuggesting early/mild acute sigmoid diverticulitis. No bowelobstruction. No free air to suggest perforation. No ascites ordrainable collection/abscess. Remainder of the small and large bowelis grossly unremarkable.Liver, pancreas, bilateral adrenal glands and kidneys are normal fornoncontrast evaluation. Splenic calcifications consistent with priorgranulomatous disease noted. Further evaluation of the pelvisdemonstrates n ormal bladder and age-appropriate uterus/adnexa. Noadenopathy. Atherosclerotic changes to the aorta without aneurysm.Musculoskeletal structures demonstrate degenerative changes withoutfocal abnormality. Lung bases are clear with calcified granuloma atthe left base noted.IMPRESSION:1. Mild/early mid sigmoid diverticulitis. No obstruction. Noperforation. No ascites or drainable collection/abscess.PAGE 1 Signed Report Printed From [facility], [place] [id number] CONSULTATIONDate of : 1960 Name: LESLEE GRAHAM edrec Number: [id number] Phys: FAUSTINA MATA MDExam Date: 04/08/2019 Location: ERProcedure: ABDPELW/O, CT ABD&PEL W/O IV OR ORA Rad Numb: [id number] Ph: [phone]\\EXAM# TYPE/EXAM [id number] CT/CT ABD&PEL W/O IV OR ORAL COElectronically signed in PS360 by: Ramin Melo M.D. 04/08/201915:43 EST Reported By: Ramin Leavitt M.D.OUR RADIOLOGY DEPARTMENT IS ACCREDITED BY THE [employer] IN THE FOLLOWING MODALITIES:CT, MRI, NUCLEAR MEDICINE, PET/CT,MAMMOGRAPHY /STEREOTACTIC BIOPSY, & ULTRASOUNDCC: ROSINA FRIED MDProcedure Start: 04/08/19 (1525) Procedure Complete: 04/08/19 (152)Technologist: Kalani TORO(R)(CT)Transcribed Date/Time: 04/08/2019 (4067)Retail Cashier: XPrinted Date/Time: 04/10/2019 (5889)PAGE 2 Signed Report Printed From PCIDiagnoses (Current Visit)Problem List1. DiverticulitisDiagnoses (Other)Past Pertinent History1. DiverticulitisPatient's Discharge ConditionVital SignsVital Signs-LastResult Date TimePulse Ox 95 04/10 558B/P 143/80 04/10 558Temp 97.6 04/10 558Pulse 66 04/10 05Resp 16 04/10 558Patient's Discharge ConditionDischarge Date 04/10/19Discharge Conditon stableDischarge DispositionHOME TO COMPLETE THE COURSE OF ORAL ANTIBIOTICS (THE PT ALREADY HAS BOTTLES OFCIPRO AND FLAGYL FROM ANOTHER HOSPITAL, THAT SHE RECEIVED FOR THIS SAME PROBLEMLAST WEEK)Physical ExaminationGeneral Appearance no acute distress, afebrile, alert, awake, conversantHead atraumatic, normocephalicNeck suppleCardiovascular regular rate, normal heart soundsRespiratory clear to auscultation, no distress, aerating wellAbdomen soft, non-tenderUrinary no flank painExtremities no e demaNeurological alert, oriented x 3Patient/Family InstructionsPrescriptionsContinue taking these medications:BLACK COHOSH (Black Cohosh) 40 MG [id number] MILLIGRAM Orally TWICE DAILYMULTIVITAMIN WITH MINERALS (Multiple Vitamin) 1 EACH TABLET1 Orally DAILYGabapentin* (Neurontin*) 400 MG [id number] MILLIGRAM Orally THREE TIMES DAILYONDANSETRON (Zofran*) 4 MG TABLET4 MILLIGRAM Orally As directed as needed for NauseaDOCUSATE SODIUM (COLACE) 100 MG [id number] MILLIGRAM Orally TWICE DAILYSENNA CONCENTRATE* (Senokot*) 8.6 MG TABLET1 TABLET Orally As directed as needed for BOWELSATORVASTATIN (LIPITOR) 10 MG [id number] MILLIGRAM Orally DAILYCELECOXIB (Celebrex*) 100 MG [id number] MILLIGRAM Orally TWICE A DAY WITH MEALS as needed for PAINPANTOPRAZOLE SODIUM* (Protonix*) 40 MG TABLET.DR40 MILLIGRAM Orally DAILYDischarge Activity: As tolerated, No liftingDischarge diet: Regular, BlandFollow-upFollow up with your Primary care physician within 2 weeks of being dischargedand after you complete the course of oral antibiotics at homeTime spent by provider to complete discharge < 30 minutesDATE SIGNED: 04/10/19 Electronically SignedTIME SIGNED: 1299 PORFIRIO BLANCHARD MD Name Value Range Interpretation Code Description Data Kenia rce(s) Supporting Document(s) ID Date Data Source [id number] 04/10/2019 12:50:[address] [id number] NAME: LESLEE GRAHAM#: [id number] PHYSICIAN: PORFIRIO BLANCHARD [facility] #: [id number] ADM. DATE: 04/08/19PATIENT : 60 DISCH. DATE: [50}DISCHARGE SUMMARYMedical Discharge PlanNicotine Replacement TherapyPrescribed at discharge Rx not offered at DC (Pt has bottles of abx at home)Reason not offered Pt has bottles of cipro and flagyl at homePersonal Care InstructionsDischarge Activity: As tolerated, No liftingDischarge diet: Regular, BlandProblem ListMedical ProblemsDiverticulitisFollow Up CareFollow Up:Follow up with your Primary care physician within 2 weeks of being dischargedand after you complete the course of oral antibiotics at homePriority ItemsUrgent/Important items that need to be addressed at primary care follow- upappointmentPLEASE COMPLETE THE COURSE OF ORAL ANTIBIOTICS AT HOMEDischarge InformationDISCHARGE INFORMATION* Thank you for [facility] and allowing us toserve you* Our Goal is to provide the highest quality of care.* This discharge information is to help you better understand your d iagnosisand medication* Avoid taking kpmp-nld-xjlvppy medicines unless approved by your physician.* Take your medications as prescribed. DO NOT stop any medications unlessapproved first* Weigh yourself daily. Report any gain of 5 lbs in a week* 24 Hour Crisis HOTLINE available: Call Reachout at [phone] SMOKING CESSATION* Smoking is dangerous to your health. It delays the healing process, andworks against your medications. Not smoking will improve your health* Our hospital participates with the Opt-to-Quit program. You will be contactedafter discharge by the [facility] Smoker's Quitline for support with tobaccocessation. You have the option once contacted to refuse this service.* You can also go online to www.Nykaa. Free nicotine replacementsare available ___Attention* You should contact your follow up Physician as it is important that you lethim or her check you and report any new or remaining problems. If yourcondition worsens, follow up with your provider or visit our EmergencyDepartment. If you received pain medication, anxiety medications, musclerelaxants, or any medication that causes drowsiness, you cannot operateOxtexhiHire-Intelligencey, power tools, or drive.END ENDDICT: 04/10/19 1250 Electronically SignedTRANS:04/10/19 1250 PORFIRIO BLANCHARD MDTRANS BY:DATE SIGNED:04/10/19TIME SIGNED: 1251REPORT COPY TO: Name Value Range Interpretation Code Description Data Kenia rce(s) Supporting Document(s) ID Date Data Source [id number] 04/10/2019 05:59:00 AM EST [facility] Name Value Range Interpretation Code Description Data Kenia rce(s) Supporting Document(s) C-REACTIVE PROT 0.99 mg/dL 0.00-0.49 H [facility] ID Date Data Source [id number] 04/10/2019 05:42:00 AM EST [facility] Name Value Range Interpretation Code Description Data Kenia rce(s) Supporting Document(s) MAGNESIUM 1.8 mg/dL 1.6-2.6 [facility] Please note the reference range change for Magnesiumeffective 02/16/19 ID Date Data Source [id number] 04/10/2019 05:42:00 AM EST [facility] Name Value Range Interpretation Code Description Data Kenia rce(s) Supporting Document(s) RASHAUN 2.9 mg/dL 2.5-4.5 [facility] ID Date Data Source [id number] 04/10/2019 05:42:00 AM EST [facility] Name Value Range Interpretation Code Description Data Kenia rce(s) Supporting Document(s) GLU 65 mg/dL 70-110 [facility] Patients taking Sulfasalazine may have f alsely depressedGlucose levels. Patients taking Sulfapyridine may havefalsely elevated Glucose levels. Patients should be drawnfor Glucose before the initial administration of eitherdrug. BUN 7 mg/dL 7-23 [facility] CRE 0.553 mg/dL 0.500-1.300 [facility] GFR > 60 mL/min [facility] CHLORIDE 107 mmol/L 99-110 [facility] NA 143 mmol/L 136-147 [facility] POTASSIUM 4.2 mmol/L 3.5-5.1 [facility] TCO2 25 mmol/L 20-33 [facility] ANION GAP 15.2 10.0-20.0 [facility] CA 8.3 mg/dL 8.3-10.7 [facility] ID Date Data Source [id number] 04/10/2019 05:36:00 AM [facility] Value Range Interpretation Code Description Data Kenia rce(s) Supporting Document(s) WBC 7.14 x10E3/uL 4.0-10.5 [facility] RBC 4.23 x10E6/uL 4.20-5.40 [facility] Hemoglobin 12.7 g/dL 12.0-16.0 [facility] Hematocrit 39.2 % 37.0-47.0 [facility] MCV 92.7 fL 81.0-99.0 [facility] MCH 30.0 pg 27.0-31.0 [facility] MCHC 32.4 g/dL 32.7-35.6 [facility] RDW 13.0 % 11.5-14.0 [facility] Platelet count 273 x10E3/uL 150-450 [facility] ital MPV 9.1 fl 6.9-9.5 [facility] Neutrophils 62.1 % 34-64 [facility] Lymphocytes 24.6 % 25-45 [facility] Monocytes 9.1 % 1.7-10.6 [facility] Eosinophils 3.5 % 0.4-7.0 [facility] Basophils 0.6 % 0.1-2.0 [facility] Imm. Gran. 0.1 % 0.1-2.0 [facility] Abs. Neutro. 4.4 x10E3/uL 1.2-7.6 [facility] Lymph. 1.8 x10E3/uL 1.0-3.5 [facility] Abs. [place]. 0.7 x10E3/uL 0.1-1.0 [facility] Abs. Eosin. 0.3 x10E3/uL 0.1-0.7 [facility] Abs. Baso. 0.0 x10E3/uL 0.0-0.1 [facility] Abs. Imm. Gran. 0.0 x10E3/uL 0.0-0.1 [facility] pital ID Date Data Source [id number] 04/09/2019 08:29:00 AM [facility] [place], [place] [address]RGSCLKHO NOTEPATIENT NAME: LESLEE GRAHAM PHYSICIAN: PORFIRIO BLANCHARD MDAUTHOR: Jerrod Blanchard MD. DATE: 04/08/19 MR#: [id number] NOTE DATE: 04/09/19 RM#: [id number] TIME: 08 : 60SubjectiveCC/Hx Present IllnessAbdominal painEvents Since Last EntryPt seen and examined at bedside. Pt reports that her abdominal pain is muchbetter and has subsided. Pt denies any other complaints.ObjectiveVital SignsVital Sign s-24 HRS04/08850 1937 0456 0456Temp 97.3 97.3 97.3Pulse 68 78 75 75Resp 17 16 15B/P 138/80 150/89 120/77B/P MeanPulse Ox 98 96 96 96O2 DeliveryO2 Flow YlemIaJ9Gbbqvh/OutputIntake/Output Summary 24 hours04/08 1900 04/09 0700Intake Total 1200Output TotalBalance 1200Intake, IV 1200NumberUnmeasuredEmesesNumber 2UnmeasuredVoidsPatient 67.8 kg 68 kgW eightCurrent MedicationsEnoxaparin Sodium (Lovenox) 40 MG DAILY SUBCUTPantoprazole Sodium (Protonix) 40 MG DAILY POMetronidazole (Flagyl) 500 MG Q6H IVAtorvastatin Calcium (Lipitor) 80 MG QHS POCiprofloxacin HCl (Cipro) 400 MG Q12H IVGabapentin (Neurontin) 300 MG TID POSodium Chloride (Saline Flush Syr(5ML)) 5 ML Q12H IVOxycodone/Acetaminophen (Percocet) 2 TAB Q6HPRN PRN POAcetaminophen (Tylenol) 650 MG Q4HPRN PRN POOndansetron HCl (Zofran) 4 MG Q6HPRN PRN IVSodium Chloride (SODIUM CHLORIDE 0.9%) 1,000 ML .[id number] IVSodium Chloride (Saline Flush Syr(5ML)) 5 ML QIDPRN PRN IVExamGeneral Appearance no acute distress, afebrile, alert, awake, conversantHead atraumatic, normocephalicNeck suppleCardiovascular regular rate, normal heart soundsRespiratory clear to auscultation, no distress, aerating wellAbdomen soft, non-tenderUrinary no flank painExtremities no edemaNeurological alert, oriented x 3ResultsLaboratory DataRecent Labs-24 hours04/08 1402 1645ChemistrySodium (136 - 147 mmol/L) Cancelled 144Potassium (3.5 - 5.1 mmol/L) Cancelled 3.6Chloride (99 - 110 mmol/L) Cancelled 109Serum Bicarbonate (20 - 33 mmol/L) Cancelled 25Anion Gap (10.0 - 20.0) Cancelled 13.6BUN (7 - 23 mg/dL) Cancelled 16Creatinine (0.500 - 1.300 mg/dL) Cancelled 0.658Estimated GFR/1.73 m2 (mL/min) > 60Glucose (70 - 110 mg/dL) Cancelled 67 LCalcium (8.3 - 10.7 mg/dL) Cancelled 8.9Total Bilirubin (0.1 - 1.1 mg/dL) Cancelled 0.4AST (6 - 38 U/L) Cancelled 20ALT (6 - 54 U/L) Cancelled 18Alkaline Phosphatase (45 - 117 U/L) Cancelled 58C-Reactive Protein (0.00 - 0.49 mg/dL) 1.64 HTotal Protein (6.0 - 7.8 g/dL) Cancelled 6.8Albumin (3.5 - 5.0 g/dL) Cancelled 3.3 LGlobulin (2.3 - 3.5 g/dL) Cancelled 3.5Albumin/Globulin Ratio (1.0 - 2.5) Cancelled 0.9 LLipase (73 - 393 U/L) 62.0 LHematologyWBC (4.0 - 10.5 x10E3/uL) Cancelled 8.57RBC (4.20 - 5.40 x10E6/uL) Cancelled 4.12 LHgb (12.0 - 16.0 g/dL) Cancelled 12.7Hct (37.0 - 47.0 %) Cancelled 38.2MCV (81.0 - 99.0 fL) Cancelled 92.7MCH (27.0 - 31.0 pg) Cancelled 30.8MCHC (32.7 - 35.6 g/dL) Cancelled 33.2RDW (11.5 - 14.0 %) Cancelled 13.0Plt Count (150 - 450 x10E3/uL) Cancelled 277MPV (6.9 - 9.5 fl) Cancelled 9.1Immature Gran % (Auto) (0.1 - 2.0 %) Cancelled 0.2Neut % (Auto) (34 - 64 %) Cancelled 70.2 HLymph % (Auto) (25 - 45 %) Cancelled 20.9 LMono % (Auto) (1.7 - 10.6 %) Cancelled 7.5Eos % (Auto) (0.4 - 7.0 %) Cancelled 0.6Baso % (Auto) (0.1 - 2.0 %) Cancelled 0.6Abs Immat Gran (auto) (0.0 - 0.1 x10E3/uL) Cancelled 0.0Absolute Neuts (auto) (1.2 - 7.6 x10E3/uL) Cancelled 6.0Absolute Lymphs (auto) (1.0 - 3.5 x10E3/uL) Cancelled 1.8Absolute Monos (auto) (0.1 - 1.0 x10E3/uL) Cancelled 0.6Absolute Eos (auto) (0.1 - 0.7 x10E3/uL) Cancelled 0.1Absolute Basos (auto) (0.0 - 0.1 x10E3/uL) Cancelled 0.1Other Body SourceStl C. cayetanensis PCR (Not Detected) Not DetectedStool Rotavirus A PCR (Not Detected) Not DetectedStl Adenov F 40/41 PCR (Not Detected) Not DetectedStool Astrovirus (PCR) (Not Detected) Not DetectedStool Campylobacter PCR (Not Detected) Not DetectedStool Cryptosporidium PCR (Not Detected) Not DetectedStl E.coli Shiga Tox PCR (Not Detected) Not DetectedStl Enterotoxigenic E PCR (Not Detected) Not DetectedStool EPEC (PCR) (Not Detected) Not DetectedStl E. histolytica PCR (Not Detected) Not DetectedStool Giardia Lamblia PCR (Not Detected) Not DetectedStool Sapovirus (PCR) (Not Detected) Not DetectedStl P. shigelloides PCR (Not Detected) Not DetectedStl Shigella/EIEC PCR (Not Detected) Not DetectedSt Y.enterocolitica PCR (Not Detected) Not DetectedStl Vibrio cholerae PCR (Not Detected) Not DetectedStl Enteroaggr Ecoli PCR (Not Detected) Not DetectedStl Norovirus GI/GII PCR (Not Detected) Not DetectedSerologyC. difficile Tox (PCR) (Not Detected) Not DetectedSalmonella (PCR) (Not Detected) Not DetectedVibrio sp DNA/RNA PCR (Not Detected) Not Mzvigcjn4404/09 0453ChemistrySodium (136 - 147 mmol/L) 145Potassium (3.5 - 5.1 mmol/L) 3.4 LChloride (99 - 110 mmol/L) 110Serum Bicarbonate (20 - 33 mmol/L) 25Anion Gap (10.0 - 20.0) 13.4BUN (7 - 23 mg/dL) 12Creatinine (0.500 - 1.300 mg/dL) 0.536Estimated GFR/1.73 m2 (mL/min) > 60Glucose (70 - 110 mg/dL) 75Calcium (8.3 - 10.7 mg/dL) 8.0 LPhosphorus (2.5 - 4.5 mg/dL) 2.4 LMagnesium (1.6 - 2.6 mg/dL) 1.5 LC-Reactive Protein (0.00 - 0.49 mg/dL) 1.04 HHematologyWBC (4.0 - 10.5 x10E3/uL) 6.25RBC (4.20 - 5.40 x10E6/uL) 3.90 LHgb (12.0 - 16.0 g/dL) 11.7 LHct (37.0 - 47.0 %) 36.3 LMCV (81.0 - 99.0 fL) 93.1MCH (27.0 - 31.0 pg) 30.0MCHC (32.7 - 35.6 g/dL) 32.2 LRDW (11.5 - 14.0 %) 13.0Plt Count (150 - 450 x10E3/uL) 246MPV (6.9 - 9.5 fl) 8.9Immature Gran % (Auto) (0.1 - 2.0 %) 0.2Neut % (Auto) (34 - 64 %) 55.4Lymph % (Auto) (25 - 45 %) 29.0Mono % (Auto) (1.7 - 10.6 %) 10.7 HEos % (Auto) (0.4 - 7.0 %) 4.2Baso % (Auto) (0.1 - 2.0 %) 0.5Abs Immat Gran (auto) (0.0 - 0.1 x10E3/uL) 0.0Absolute Neuts (auto) (1.2 - 7.6 x10E3/uL) 3.5Absolute Lymphs (auto) (1.0 - 3.5 x10E3/uL) 1.8Absolute Monos (auto) (0.1 - 1.0 x10E3/uL) 0.7Absolute Eos (auto) (0.1 - 0.7 x10E3/uL) 0.3Absolute Basos (auto) (0.0 - 0.1 x10E3/uL) 0.0Results Reviewed labs reviewedAssessment/PlanProblem List1. DiverticulitisA&P- NS 75 cc/hr- IV ciprofloxacin 400 mg IV q12- IV flagyl 500 mg q6- Stool studies collected in the ER are all negativeAdditional NotesDVT Prophylaxis: Lovenox 40 sq dailyResuscitation status Full codeDATE SIGNED: 04/09/19 Electronically SignedTIME SIGNED: 1900 PORFIRIO BLANCHARD MD Name Value Range Interpretation Code Description Data Kenia rce(s) Supporting Document(s) ID Date Data Source [id number] 04/09/2019 05:48:00 AM EST [facility] Name Value Range Interpretation Code Description Data Kenia rce(s) Supporting Document(s) C-REACTIVE PROT 1.04 mg/dL 0.00-0.49 H [facility] ID Date Data Source [id number] 04/09/2019 05:35:00 AM EST [facility] Name Value Range Interpretation Code Description Data Kenia rce(s) Supporting Document(s) MAGNESIUM 1.5 mg/dL 1.6-2.6 L [facility] Please note the reference range change for Magnesiumeffective 02/16/19 ID Date Data Source [id number] 04/09/2019 05:35:00 AM EST [facility] Name Value Range Interpretation Code Description Data Kenia rce(s) Supporting Document(s) RASHAUN 2.4 mg/dL 2.5-4.5 L [facility] ID Date Data Source [id number] 04/09/2019 05:35:00 AM EST [facility] Name Value Range Interpretation Code Description Data Kenia rce(s) Supporting Document(s) GLU 75 mg/dL 70-110 [facility] Patients taking Sulfasalazine may have f alsely depressedGlucose levels. Patients taking Sulfapyridine may havefalsely elevated Glucose levels. Patients should be drawnfor Glucose before the initial administration of eitherdrug. BUN 12 mg/dL 7-23 [facility] CRE 0.536 mg/dL 0.500-1.300 [facility] GFR > 60 mL/min [facility] CHLORIDE 110 mmol/L 99-110 [facility] NA 145 mmol/L 136-147 [facility] POTASSIUM 3.4 mmol/L 3.5-5.1 [facility] TCO2 25 mmol/L 20-33 [facility] ANION GAP 13.4 10.0-20.0 [facility] CA 8.0 mg/dL 8.3-10.7 [facility] ID Date Data Source [id number] 04/09/2019 05:21:00 AM EST [facility] Name Value Range Interpretation Code Description Data Kenia rce(s) Supporting Document(s) WBC 6.25 x10E3/uL 4.0-10.5 [facility] RBC 3.90 x10E6/uL 4.20-5.40 [facility] Hemoglobin 11.7 g/dL 12.0-16.0 [facility] Hematocrit 36.3 % 37.0-47.0 [facility] MCV 93.1 fL 81.0-99.0 [facility] MCH 30.0 pg 27.0-31.0 [facility] MCHC 32.2 g/dL 32.7-35.6 [facility] RDW 13.0 % 11.5-14.0 [facility] Platelet count 246 x10E3/uL 150-450 N [facility] ital MPV 8.9 fl 6.9-9.5 [facility] Neutrophils 55.4 % 34-64 N [facility] Lymphocytes 29.0 % 25-45 N [facility] Monocytes 10.7 % 1.7-10.6 H [facility] Eosinophils 4.2 % 0.4-7.0 N [facility] Basophils 0.5 % 0.1-2.0 N [facility] Imm. Gran. 0.2 % 0.1-2.0 N [facility] Abs. Neutro. 3.5 x10E3/uL 1.2-7.6 N [facility] Abs. Lymph. 1.8 x10E3/uL 1.0-3.5 N [facility] Abs. [place]. 0.7 x10E3/uL 0.1-1.0 N [facility] Abs. Eosin. 0.3 x10E3/uL 0.1-0.7 N [facility] Abs. Baso. 0.0 x10E3/uL 0.0-0.1 N [facility] Abs. Imm. Gran. 0.0 x10E3/uL 0.0-0.1 N [facility] pital ID Date Data Source [id number] 04/08/2019 04:56:00 PM EST [facility] [address] [address]XMBTBYR AND PHYSICALPATIENT NAME: LESLEE GRAHAM MR#: [id number] PHYSICIAN: PORFIRIO BLANCHARD MDAUTHOR: Porfirio Blanchard MD DATE: 04/08/19 #: 2EASTHISTORY & PHYSICAL DATE: 04/08/19 : 60EVALUATION TIME: 1705HistoryChief Complaint/Admit ReasonAbdominal painHistory of Presenting Rhlsaip57 yo F PMHx of diverticulitis who presents with abdominal pain. Pt startedhaving abdominal pain on Apr 02 2019. [facility] She hada CT scan done there which showed she had diverticulitis. She was given oralflagyl/ciprofloxacin and sent home. The pain did not go away despite taking theaforementioned oral antibiotics. The pain is constant, pressure like pain thatis similar to her previous episodes of diverticulitis. The pain is aggravatedwith moving and alleviated with hot water baths. The pain radiates to the back.It is rated 7/10. Pt denies any bloody stools. She has had no appetite sincethese symptoms started.Past Medical/Surgical HistoryPast Medical/Surgical HistoryMedical ProblemsDiverticulitisAllergiesCoded Allergies:MS - No Known Drug Allergy (09/01/12)Family history Mother (unknown age) from DM and heart problems. Father (unknown age) from liver disease (he was an alcoholic)Social History Denies cigarette smoking, denies alcohol use. Uses 1 g ofmarijuana a day. Denies any other recreational drug useReview of SystemsConstitutionalReports: Pain. Denies: Fever, Chills, Sweats.SkinDenies: abrasion, itching, rash.EyesDenies: redness, discharge.RespiratoryDenies: dyspnea, non-productive cough, shortness of breath, wheezing.CardiovascularDenies: chest pain, palpitations.GastrointestinalReports: abdominal pain. Denies: nausea, vomiting.GenitorurinaryDenies: flank pain.MusculoskeletalDenies: neck pain.HematologyDenies: bleeding.EndocrineDenies: diabetic.ExamPhysical ExaminationGeneral Appearance no acute distress, afebrile, alert, awake, conversantHead atraumatic, normocephalicNeck suppleCardiovascular regular rate, normal heart soundsRespiratory clear to auscultation, no distress, aerating wellAbdomen soft, mildly tenderUrinary no flank painExtremities no edemaNeurological alert, oriented x 3Skin AssessmentSkin dry, intactData ReviewLaboratory DataRecent Labs-48 hours04/08866214 7703 1645ChemistrySodium (136 - 147 mmol/L) Cancelled 144Potassium (3.5 - 5.1 mmol/L) Cancelled 3.6Chloride (99 - 110 mmol/L) Cancelled 109Serum Bicarbonate (20 - 33 mmol/L) Cancelled 25Anion Gap (10.0 - 20.0) Cancelled 13.6BUN (7 - 23 mg/dL) Cancelled 16Creatinine (0.500 - 1.300 mg/dL) Cancelled 0.658Estimated GFR/1.73 m2 (mL/min) > 60Glucose (70 - 110 mg/dL) Cancelled 67 LCalcium (8.3 - 10.7 mg/dL) Cancelled 8.9Total Bilirubin (0.1 - 1.1 mg/dL) Cancelled 0.4AST (6 - 38 U/L) Cancelled 20ALT (6 - 54 U/L) Can celled 18Alkaline Phosphatase (45 - 117 U/L) Cancelled 58C- Reactive Protein (0.00 - 0.49 mg/dL) 1.64 HTotal Protein (6.0 - 7.8 g/dL) Cancelled 6.8Albumin (3.5 - 5.0 g/dL) Cancelled 3.3 LGlobulin (2.3 - 3.5 g/dL) Cancelled 3.5Albumin/Globulin Ratio (1.0 - 2.5) Cancelled 0.9 LLipase (73 - 393 U/L) 62.0 LHematologyWBC (4.0 - 10.5 x10E3/uL) Cancelled 8.57RBC (4.20 - 5.40 x10E6/uL) Cancelled 4.12 LHgb (12.0 - 16.0 g/dL) Cancelled 12.7Hct (37.0 - 47.0 %) Cancelled 38.2MCV (81.0 - 99.0 fL) Cancelled 92.7MCH (27.0 - 31.0 pg) Cancelled 30.8MCHC (32.7 - 35.6 g/dL) Cancelled 33.2RDW (11.5 - 14.0 %) Cancelled 13.0Plt Count (150 - 450 x10E3/uL) Cancelled 277MPV (6.9 - 9.5 fl) Cancelled 9.1Immature Gran % (Auto) (0.1 - 2.0 %) Cancelled 0.2Neut % (Auto) (34 - 64 %) Cancelled 70.2 HLymph % (Auto) (25 - 45 %) Cancelled 20.9 LMono % (Auto) (1.7 - 10.6 %) Cancelled 7.5Eos % (Auto) (0.4 - 7.0 %) Cancelled 0.6Baso % (Auto) (0.1 - 2.0 %) Cancelled 0.6Abs Immat Gran (auto) (0.0 - 0.1 x10E3/uL) Cancelled 0.0Absolute Neuts (auto) (1.2 - 7.6 x10E3/uL) Cancelled 6.0Absolute Lymphs (auto) (1.0 - 3.5 x10E3/uL) Cancelled 1.8Absolute Monos (auto) (0.1 - 1.0 x10E3/uL) Cancelled 0.6Absolute Eos (auto) (0.1 - 0.7 x10E3/uL) Cancelled 0.1Absolute Basos (auto) (0.0 - 0.1 x10E3/uL) Cancelled 0.1Other Body SourceStl C. cayetanensis PCR PendingStool Rotavirus A PCR PendingStl Adenov F 40/41 PCR PendingStool Astrovirus (PCR) PendingStool Campylobacter PCR PendingStool Cryptosporidium PCR PendingStl E.coli Shiga Tox PCR PendingStool E coli O157 PCR PendingStl Enterotoxigenic E PCR PendingStool EPEC (PCR) PendingStl E. histolytica PCR PendingStool Giardia Lamblia PCR PendingStool Sapovirus (PCR) PendingStl P. shigelloides PCR PendingStl Shigella/EIEC PCR PendingSt Y.enterocolitica PCR PendingStl Vibrio cholerae PCR PendingStl Enteroaggr Ecoli PCR PendingStl Norovirus GI/GII PCR Pe ndingSerologyC. difficile Tox (PCR) PendingSalmonella (PCR) PendingVibrio sp DNA/RNA PCR [place]endingArivaca, [place] [id number] CONSULTATIONDate of : 1960 Name: LESLEE GRAHAM RMedrec Number: [id number] Phys: FAUSTINA MATA Date: 04/08/2019 Location: ERProcedure: ABDPELW/O, CT ABD&PEL W/O IV OR ORA Rad Numb: [id number] Ph: \\EXAM# TYPE/EXAM [id number] CT/CT ABD&PEL W/O IV OR ORAL COATE OF EXAMINATION: 04/08/2019 15:14 ESTCT ABD&PEL W/O IV OR ORAL CONTHISTORY: Left lower quadrant pain with vomitingTECHNIQUE:This CT exam was performed using the following dose reductiontechniques: automated exposure control, adjustment of mA and/or kVaccording to the patient's size, and use of iterative reconstructiontechnique.Standard contiguous axial spiral imaging was obtained from the dome ofthe diaphragms through the symphysis pubis without intravenous or oralcontrast and with coronal reformatting.FINDINGS:Mild mucosal thickening to the mid/distal sigmoid colon is appreciatedwith multiple diverticula and subtle adjacent inflammatory strandingsuggesting early/mild acute sigmoid diverticulitis. No bowelobstruction. No free air to suggest perforation. No ascites ordrainable collection/abscess. Remainder of the small and large bowelis grossly unremarkable.Liver, pancreas, bilateral adrenal glands and kidneys are normal fornoncontrast evaluation. Splenic calcifications consistent with priorgranulomatous disease noted. Further evaluation of the pelvisdemonstrates normal bladder and age-appropriate uterus/adnexa. Noadenopathy. Atherosclerotic changes to the aorta without aneurysm.Musculoskeletal structures demonstrate degenerative changes withoutfocal abnormality. Lung bases are clear with calcified granuloma atthe left base noted.IMPRESSION:1. Mild/early mid sigmoid diverticulitis. No obstruction. Noperforation. No ascites or drainable collection/abscess.PAGE 1 Signed Report Printed From [facility], [place] [id number] CONSULTATIONDate of : 1960 Name: LESLEE GRAHAM RMedrec Number: [id number] Phys: FAUSTINA MATA Date: 04/08/2019 Location: ERProcedure: ABDPELW/O, CT ABD&PEL W/O IV OR ORA Rad Numb: [id number] \\EXAM# TYPE/EXAM [id number] CT/CT ABD&PEL W/O IV OR ORAL COElectronically signed in PS360 by: Ramin Melo M.D. 04/08/201915:43 EST Repo rted By: Ramin Leavitt M.D.OUR RADIOLOGY DEPARTMENT IS ACCREDITED BY THE [employer] IN THE FOLLOWING MODALITIES:CT, MRI, NUCLEAR MEDICINE, PET/CT,MAMMOGRAPHY/STEREOTACTIC BIOPSY, & ULTRASOUNDCC: ROSINA FRIED MDProcedure Start: 04/08/19 (1525) Procedure Complete: 04/08/19 (1525)Technologist: Kalani TORO(James)(CT)Transcribed Date/Time: 04/08/2019 (6028)Retail Cashier: XPrinted Date/Time: 04/08/2019 (8902)PAGE 2 Signed Report Printed From PCIAssessment/PlanDiagnosis/Problem1. DiverticulitisA&P- NS 75 cc/hr- IV ciprofloxacin 400 mg IV q12- IV flagyl 500 mg q6- F/u stool studies collected in the ERAdditional NotesDVT Prophylaxis: Lovenox 40 sq dailyResuscitation status Full codeCQM VTE HISTORYVTE HISTORYPrior VTE? NoDATE SIGNED: 04/08/19 Electronically SignedTIME SIGNED: 1901 PORFIRIO BLANCHARD MD Name Value Range Interpretation Code Description Data Kenia rce(s) Supporting Document(s) ID Date Data Source [id number] 04/08/2019 06:43:00 PM EST [facility] unformed stools in 24 hours? YLaxatives not received within 48hrs? Y Name Value Range Interpretation Code Description Data Kenia rce(s) Supporting Document(s) Campylobacter Not Detected Detected Not [facility] C diff tox AB Not Detected Detected Not [facility] Due to the high asymptomatic carriage ra milagro,especially in young children,the clinical relevance of the detectionof toxigenic C. difficile from stool should be consideredin the context of other clinical findings,patient age,and risk factors including hospitalization and antibioticexposure. Plesiom shigell Not Detected Detected Not [facility] Salmonella Not Detected Detected Not [facility] Vibrio sp. Not Detected Detected Not [facility] Vibrio cholerae Not Detected Detected Not [facility] Yersinia entero Not Detected Detected Not [facility] Enteroag E coli Not Detected Detected Not [facility] Enterop E. coli Not Detected Detected Not [facility] Enterot E. coli Not Detected Detected Not [facility] Shiglik E. coli Not Detected Detected Not [facility] Shig/Ent E coli Not Detected Detected Not [facility] Cryptosporidium Not Detected Detected Not [facility] Cyclo cayetanes Not Detected Detected Not [facility] Entamoeba histo Not Detected Detected Not [facility] Giardia lamblia Not Detected Detected Not [facility] Adenov F 40/41 Not Detected Detected Not [facility] Astrovirus Not Detected Detected Not [facility] Norovir GI/GII Not Detected Detected Not [facility] Rotavirus A Not Detected Detected Not [facility] Sapovirus Not Detected Detected Not [facility] The above results have been determined by using the [employer] system.[employer] is an automated in vitro diagnostic system thatutilizes nested multiplex Polymerase Chain Reaction (PCR)and high-resolution melting analysis to detect and identifymultiple nucleic acid targets from clinical specimens. ID Date Data Source [id number] 04/08/2019 03:50:00 PM EST [facility] Exam Number: [id number] OF EXAMINATION : 04/08/2019 15:14 ESTCT ABD&PEL W/O IV OR ORAL CONTHISTORY: Left lower quadrant pain with vomitingTECHNIQUE:This CT exam was performed using the following dose reductiontechniques: automated exposure control, adjustment of mA and/or kVaccording to the patient's size, and use of iterative reconstructiontechnique.Standard contiguous axial spiral imaging was obtained from the dome ofthe diaphragms through the symphysis pubis without intravenous or oralcontrast and with coronal reformatting.FINDINGS:Mild mucosal thickening to the mid/distal sigmoid colon is appreciatedwith multiple diverticula and subtle adjacent inflammatory strandingsuggesting early/mild acute sigmoid diverticulitis. No bowelobstruction. No free air to suggest perforation. No ascites ordrainable collection/abscess. Remainder of the small and large bowelis grossly unremarkable.Liver, pancreas, bilateral adrenal glands and kidneys are normal fornoncontrast evaluation. Splenic calcifications consistent with priorgranulomatous disease noted. Further evaluation of the pelvisdemonstrates normal bladder and age-appropriate uterus/adnexa. Noadenopathy. Atherosclerotic changes to the aorta without aneurysm.Musculoskeletal structures demonstrate degenerative changes withoutfocal abnormality. Lung bases are clear with calcified granuloma atthe left base noted.IMPRESSION:1. Mild/early mid sigmoid diverticulitis. No obstruction. Noperforation. No ascites or drainable collection/abscess.Electronically signed in PS360 by: Ramin Melo M.D. 04/08/201915:43 EST Reported By: - Ramin Leavitt M.D. Signed By: Ramin Leavitt M.D. Name Value Range Interpretation Code Description Data Kenia rce(s) Supporting Document(s) ID Date Data Source [id number] 04/08/2019 02:59:00 PM EST [facility] Name Value Range Interpretation Code Description Data Kenia rce(s) Supporting Document(s) C-REACTIVE PROT 1.64 mg/dL 0.00-0.49 H [facility] ID Date Data Source [id number] 04/08/2019 02:59:00 PM EST [facility] Name Value Range Interpretation Code Description Data Kenia rce(s) Supporting Document(s) LIP 62.0 U/L 73-393 L [facility] ID Date Data Source [id number] 04/08/2019 02:59:00 PM EST [facility] Name Value Range Interpretation Code Description Data Kenia rce(s) Supporting Document(s) GLU 67 mg/dL 70-110 L [facility] Patients taking Sulfasalazine may have f alsely depressedGlucose levels. Patients taking Sulfapyridine may havefalsely elevated Glucose levels. Patients should be drawnfor Glucose before the initial administration of eitherdrug. BUN 16 mg/dL 7-23 [facility] CRE 0.658 mg/dL 0.500-1.300 [facility] GFR > 60 mL/min [facility] CHLORIDE 109 mmol/L 99-110 [facility] NA 144 mmol/L 136-147 [facility] POTASSIUM 3.6 mmol/L 3.5-5.1 [facility] TCO2 25 mmol/L 20-33 [facility] ANION GAP 13.6 10.0-20.0 [facility] CA 8.9 mg/dL 8.3-10.7 [facility] ALKALINE PHOS 58 U/L 45-117 [facility] TP 6.8 g/dL 6.0-7.8 [facility] ALB 3.3 g/dL 3.5-5.0 [facility] ESRD Dialysis patient Albumin reference range: 2.9-4.4 g/dL GL 3.5 g/dL 2.3-3.5 [facility] A/G 0.9 1.0-2.5 [facility] TOTAL BILIRUBIN 0.4 mg/dL 0.1-1.1 [facility]/L 6-54 [facility] Patients taking Sulfasalazine and/or Sul fapyridine may havefalsely depressed ALT levels. Patients should be drawn forALT before the initial administration of either drug. AST 20 U/L 6-38 [facility] Patients taking Sulfasalazine and/or Sul fapyridine may havefalsely depressed AST levels. Patients should be drawn forAST before the initial administration of either drug. ID Date Data Source [id number] 04/08/2019 02:54:00 PM EST [facility] Name Value Range Interpretation Code Description Data Kenia rce(s) Supporting Document(s) WBC 8.57 x10E3/uL 4.0-10.5 [facility] RBC 4.12 x10E6/uL 4.20-5.40 [facility] Hemoglobin 12.7 g/dL 12.0-16.0 [facility] Hematocrit 38.2 % 37.0-47.0 [facility] MCV 92.7 fL 81.0-99.0 [facility] MCH 30.8 pg 27.0-31.0 [facility] MCHC 33.2 g/dL 32.7-35.6 [facility] RDW 13.0 % 11.5-14.0 [facility] Platelet count 277 x10E3/uL 150-450 [facility] ital MPV 9.1 fl 6.9-9.5 [facility] Neutrophils 70.2 % 34-64 H [facility] Lymphocytes 20.9 % 25-45 L [facility] Monocytes 7.5 % 1.7-10.6 [facility] Eosinophils 0.6 % 0.4-7.0 [facility] Basophils 0.6 % 0.1-2.0 [facility] Imm. Gran. 0.2 % 0.1-2.0 [facility] Abs. Neutro. 6.0 x10E3/uL 1.2-7.6 [facility] Abs. Lymph. 1.8 x10E3/uL 1.0-3.5 [facility] Abs. [place]. 0.6 x10E3/uL 0.1-1.0 [facility] Abs. Eosin. 0.1 x10E3/uL 0.1-0.7 N [facility] l Abs. Baso. 0.1 x10E3/uL 0.0-0.1 [facility] Abs. Imm. Gran. 0.0 x10E3/uL 0.0-0.1 [facility] pital ID Date Data Source [id number] 04/08/2019 05:52:00 PM EST [facility] Nurse[facility] terName: Leslee ClementAge: 58 yrsSex: FemaleDOB: 1960MRN: [id number] Date: 04/08/2019Time: 12:55Account#: [id number] 2Paquiles REYNA:Diagnosis: Diverticulitis of large intestine without perforation or abscesswithout bleedingPresentation:03/2812:56 Presenting complaint: Patient states: I was diagnosed with zsDiverticulitis on 04/02 and placed on antibiotics. I have been backand fourth to [facility] 3 times and they keep sending lucio. Communicable Disease Screen: Negative for fever>/= 100 degreesFahrenheit. Communicable disease screen is negative. (-) rash orunusual skin lesion (-) travel/contact with traveler (-) respiratorysymptoms.12:56 Acuity: Triage 3 zs12:56 Method Of Arrival: Private Vehicle zs12:58 Acuity Assignment: Triage 3 zsTriage Assessment:12:59 General: Appears distressed, uncomfortable, unkempt, Behavior is zsdrowsy, flat. Sepsis Screening: (1)Signs/symptoms infection Sepsis isnot suspected. Pain: Complains of pain in abdomen Pain currently is 8out of 10 on a pain scale. Quality of pain is described as aching,throbbing. PSS-3 Now I'm going to ask you some questions that we askeveryone treated here, no matter what problem they are here for. Itis part of the hospital's policy and it helps us to make sure we arenot missing anything important. Over the past 2 weeks, have you feltdown, depressed, or hopeless? Yes. Exhibiting depressed mood.Positive screen for depression, MD provider aware of positivescreening. Education provided. Over the past 2 weeks, have hadthoughts of killing yourself? No. In your lifetime, have you everatt empted to kill yourself? No. Neuro: No deficits noted. GI: Abdomenis flat, non- distended Reports intolerance of fluids, intolerance offood, nausea, vomiting. Musculoskeletal: Circulation, motion, andsensation intact Range of motion intact in all extremities.Historical:- Allergies: No known Allergies;- Home Meds:1. Cipro 500 mg Oral tab 1 tab every 12 hours2. Flagyl 500 mg Oral tab 1 tab every 6 hours3. gabapentin 800 mg oral tab 1 tab 3 times per day4. pantoprazole 40 mg oral TbEC 1 tab once daily5. atorvastatin 80 mg oral tab 1 tab once daily6. celecoxib 100 mg Oral cap 1 cap 2 times per day7. tacrolimus 0.1 % Topical oint 2 times per day8. senna 8.6 mg oral cap 2 caps once daily9. multivitamin with minerals oral10. black cohosh 40 mg oral tab- PMHx: Diverticulitis; Gastric reflux; HIGH CHOLESTEROL;- PSHx: Appendectomy; C Section; Cholecystectomy;- Immunization history: Flu vaccine is up to date.- Family history: Reviewed and not pertinent.- Social history: Smoking status: Patient states was never smoker [facility].- Advance Directives:: None.- Hospitalizations: : No recent hospitalization is reported.Screenin:20 Abuse screen: Denies threats or abuse. Denies injuries from another. [id number] screening: No deficits noted. Offer of HIV testing:patient was previously offered screening. Fall Risk No fall in past12 months (0 pts). No secondary diagnosis (0 pts). No IV (0 pts).Ambulatory Aid- None/Bed Rest/Nurse Assist (0 pts). Gait- Normal/BedRest/Wheelchair (0 pts) Mental Status- Oriented to own ability (0pts). Total Burk Fall Scale indicates No Risk (0-24 pts).Assessment:13:20 Pain: Complains of pain in right upper quadrant and left upper [id number] Pain does not radiate. Pain currently is 7 out of 10 on apain scale. Scaled used was Verbal Quality of pain is described ascrampy, Pain began 02 of April Is continuous Alleviated by rest,Aggravated by eating, drinking, increased activity. General: Appearsuncomfortable, unkempt, well nourished, Behavior is appropriate forage, cooperative. Neuro: Level of Consciousness is awake, alert,Oriented to person, place, time. GI: Abdomen is distended, Bowelsounds hyperactive in right upper quadrant, left upper quadrant,right lower quadrant and left lower quadrant Abd is soft X 4 quadsAbd is tender to palpation in right upper quadrant and left upperquadrant Reports upper abdominal pain, cramping, diarrhea,hemorrhoids, intolerance of fluids, intolerance of food, nausea, Painis 7 out of 10 on a pain scale. vomiting, since Diarrhea has beengoing on since the 02 of April and patient states that thenausea and vomiting started a few days ago after she started twoantibiotics for diverticulitis flare up and infection. Patient statesthat she was prescribed Compazine to help with nausea and vomiting totake with the prescribed antibiotics and states she is still nauseousand vomiting despite taking compazine with the antibiotics Deniesbloating, constipation. : Denies burning with urination, crampingdischarge, inability to void, incontinence, urinary frequency,urgency.15:41 Reassessment: Patient states feeling better. Patient states symptoms fbghave improved.16:28 Reassessment: No changes from previously documented assessment. fk6Ulplb Signs:13:00 BP 153 / 90 LA Sitting (auto/reg); Pulse 85; Resp 15; Temp 99.8(TE); zsPulse Ox 98% on R/A; Weight 70 kg; Height 5 ft. 3 in. (160.02 cm);Pain 8/10;14:00 BP 140 / 83 (auto/); Pulse 67 MON; Pulse Ox 99% on R/A; kk314:19 BP 146 / 72 (auto/); Pulse 65 MON; Pulse Ox 98% ; kk314:31 BP 155 / 78 (auto/); Pulse 71 MON; Pulse Ox 98% on R/A; kk316:53 BP 152 / 78; Pulse 65; Resp 17; Temp 98.2(T); Pulse Ox 98% on R/A; kg0Qrzx 7/10;13:00 Body Mass Index 27.34 (70.00 kg, 160.02 cm) zsED Course:12:56 Patient arrived in ED. zs12:58 Triage completed. zs13:20 Helen Lemus, RN is Primary Nurse. kk313:27 Patient has correct armband on for positive identification. Placed in cf1lkru. Bed in low position. Call light in reach. Side rails up X 1.Adult w/ patient. Verbal reassurance given. Pillow given. Head of bedelevated.13:50 Inserted peripheral IV: 22 gauge in left forearm. kk313:54 Faustina Mata MD is Attending Physician. fcn14:10 Labs drawn. Collected by lab. fbg15:[address] fbg16:26 Porfirio Blanchard MD is Hospitalizing Provider. fcn16:29 No Physician assisted procedures completed. IV is patent, is intact, xs9mecm fluids infusing freely.16:[address] Blanchard to the ED to evaluate this patient. fbg16:45 Stool collected. kk317:42 Inserted peripheral IV: 22 gauge in right hand Discontinued IV klpbleeding controlled, pressure dressing applied, No redness/swellingat site. initial iv plugged prior to admit and changed.Administered Medications:13:59 Drug: NS 0.9% 1000 ml [sodium chloride 0.9 % intravenous solution] xt9Sajcy: IV; Rate: 250 mL/hr; Site: left forearm;17:28 Follow up: IV Status: Infusion continued upon admission; IV Intake: ds7048de31:16 Drug: Ondansetron 8 mg [ondansetron HCl 2 mg/mL intravenous solution kk3(4 mL)] Route: IVP; Infused Over: 2 mins; Site: left forearm;14:45 Follow up: Response: No adverse reaction; Nausea is decreased kk314:38 Drug: metroNIDAZOLE 500 mg [metronidazole 500 mg/100 mL-sodium uk4uvcemckx(iso) intravenous piggyback] Route: IVPB; Site: left forearm;16:12 Follow up: IV Intake: 100ml fbg17:30 Follow up: IV Status: Completed infusion klp16:11 Drug: Ciprofloxacin 400 mg [ciprofloxacin 400 mg/200 mL in 5 % fbgdextrose intravenous piggyback] Route: IVPB; Site: left forearm;17:30 Follow up: IV Status: Completed infusion klp17:25 Drug: Ondansetron 4 mg [ondansetron HCl 2 mg/mL intravenous solution kk3(2 mL)] Route: IVP; Site: left forearm;17:29 Follow up: Response: Medication administered at discharge. fv0Jjpxxh:16:12 IV: 100ml; Total: 100ml. fbg17:28 IV: 200ml; Total: 300ml. mz3Prvtbwk:16:27 Decision to Hospitalize by Provider. fcn17:02 Disposition: Admitted to kk317:02 Discharge Assessment: Patient awake, alert and oriented x 3. Nocognitive and/or functional deficits noted. Patient verbalizedunderstanding of disposition instructions. Patient verbalizedunderstanding of disposition instructions. Patient has no functionaldeficits.17:11 Condition: improved kk317:11 Discharge instructions given to patient, family, Instructed on needfor admit, Demonstrated understanding of instructions.17:51 Disposition: Report called to Bedside report to KANDICE Lee RN klp17:52 Patient left the ED. klpSignatures:Faustina Mata MD MD fcnGilmour, Farah, RN Ana Clarke, RN Hector Dennis, RN ANATOLY Dennis, Helen, RN RN [id number]: (The following items were deleted from the chart)14:41 12:56 Presenting complaint: Patient states: I was diagnosed with zsDiverticulitis on 04/02 and placed on antibiotics. I have been backand fourth to [facility] 3 time sand they keep sending mehome. zs Name Value Range Interpretation Code Description Data Kenia rce(s) Supporting Document(s) ID Date Data Source [id number] 04/08/2019 05:52:00 PM EST [facility] Physician DocumentationClaxXiang Singer edical CenterName: Leslee ClementAge: 58 yrsSex: FemaleDOB: 1960MRN: [id number] Date: 04/08/2019Time: 12:55Account#: [id number] 2Private MD:ED Physician Derek MataoDisposition Summary:04/08/19 16:27Hospitalization OrderedHospitalization Status: Inpatient Admission fcnProvider: Porfirio Blanchard fcnCondition: Stable fcnProblem: an ongoing problem fcnSymptoms: are unchanged fcnLocation: 2 East(04/08/19 17:17) fbgRoom Assignment: 238-1(04/08/19 17:17) fbgDiagnosis- Diverticulitis of large intestine without perforation or abscess fcnwithout bleedingAdditional Information- Admission Type: Inpatient Status. fcnDischarge Instructions:- Discharge Summary Sheet ao1Efhks:- Medication Reconciliation fcn- SBAR fcn- Medication Reconciliation Form - 2nd Copy fcnHPI:03/2814:11 This 58 yrs old White Female presents to ER via Private Vehicle with fcncomplaints of Abdominal Pain.14:11 The patient presents with abdominal pain in the lower abdomen. Onset: fcnThe symptoms/episode began/occurred gradually, 6 day(s) ago. Thesymptoms do not radiate. Associated signs and symptoms: Pertinentpositives: anorexia, diarrhea, fever, nausea, vomiting. Severity ofpain: At its worst the pain was moderate in the emergency departmentthe pain is unchanged. .Historical:- Allergies: No known Allergies;- Home Meds:1. Cipro 500 mg Oral tab 1 tab every 12 hours2. Flagyl 500 mg Oral tab 1 tab every 6 hours3. gabapentin 800 mg oral tab 1 tab 3 times per day4. pantoprazole 40 mg oral TbEC 1 tab once daily5. atorvastatin 80 mg oral tab 1 tab once daily6. celecoxib 100 mg Oral cap 1 cap 2 times per day7. tacrolimus 0.1 % Topical oint 2 times per day8. senna 8.6 mg oral cap 2 caps once daily9. multivitamin with minerals oral10. black cohosh 40 mg oral tab- PMHx: Diverticulitis; Gastric reflux; HIGH CHOLESTEROL;- PSHx: Appendectomy; C Section; Cholecystectomy;- Immunization history: Flu vaccine is up to date.- Family history: Reviewed and not pertinent.- Social history: Smoking status: Patient states was never smoker oftobacco.- Advance Directives:: None.- Hospitalizations: : No recent hospitalization is reported.ROS:14:14 Eyes: Negative for injury, pain, redness, and discharge, ENT: fcnNegative for injury, pain, and discharge, Neck: Negative for injury,pain, and swelling, Cardiovascular: Negative for chest pain,palpitations, and edema, Respiratory: Negative for shortness ofbreath, cough, wheezing, and pleuritic chest pain, Back: Negative forinjury and pain, : Negative for injury, bleeding, discharge, andswelling, MS/Extremity: Negative for injury and deformity, Skin:Negative for injury, rash, and discoloration, Neuro: Negative forheadache, weakness, numbness, tingling, and seizure,Allergy/Immunology: Negative for hives, rash, and allergies,Endocrine: Negative for neck swelling, polydipsia, polyuria,polyphagia, and marked weight changes, Hematologic/Lymphatic:Negative for swollen nodes, abnormal bleeding, and unusual bruising.Constitutional: Positive for fatigue, fever, malaise, poor PO intake.Abdomen/GI: Positive for abdominal pain, nausea, vomiting, diarrhea,hematemesis, black/tarry stool, rectal bleeding.Exam:14:16 Constitutional: z fcn14:16 Head/Face: Normocephalic, atraumatic. Eyes: Pupils equal round andreactive to light, extra-ocular motions intact. Lids and lashesnormal. Conjunctiva and sclera are non-icteric and not injected.Cornea within normal limits. Periorbital areas with no swelling,redness, or edema. ENT: Nares patent. No nasal discharge, no septalabnormalities noted. Tympanic membranes are normal and externalauditory canals are clear. Oropharynx with no redness, swelling, ormasses, exudates, or evidence of obstruction, uvula midline. Mucousmembranes moist. Neck: Trachea midline, no thyromegaly or massespalpated, and no cervical lymphadenopathy. Supple, full range ofmotion without nuchal rigidity, or vertebral point tenderness. NoMeningismus. Chest/axilla: Normal chest wall appearance and motion.Nontender with no deformity. No lesions are appreciated.Cardiovascular: Regular rate and rhythm with a normal S1 and S2. Nogallops, murmurs, or rubs. Normal PMI, no JVD. No pulse deficits.Respiratory: Lungs have equal breath sounds bilaterally, clear toauscultation and percussion. No rales, rhonchi or wheezes noted. Noincreased work of breathing, no retractions or nasal flaring. Skin:Warm, dry with normal turgor. Normal color with no rashes, nolesions, and no evidence of cellulitis. MS/ Extremity: Pulses equal,no cyanosis. Neurovascular intact. Full, normal range of motion.Neuro: Awake and alert, GCS 15, oriented to person, place, time, andsituation. Cranial nerves II-XII grossly intact. Motor strength 5/5in all extremities. Sensory grossly intact. Cerebellar exam normal.Normal gait.14:16 Constitutional: The patient appears alert, awake, frail, listless,obviously ill, restless, uncomfortable.14:16 Abdomen/GI: Inspection: abdomen appears normal, Bowel sounds:hyperactive, Palpation: soft, mild abdominal tenderness, in the rightlower quadrant and left lower quadrant.Vital Signs:13:00 BP 153 / 90 LA Sitting (auto/reg); Pulse 85; Resp 15; Temp 99.8(TE); zsPulse Ox 98% on R/A; Weight 70 kg; Height 5 ft. 3 in. (160.02 cm);Pain 8/10;14:00 BP 140 / 83 (auto/); Pulse 67 MON; Pulse Ox 99% on R/A; kk314:19 BP 146 / 72 (auto/); Pulse 65 MON; Pulse Ox 98% ; kk314:31 BP 155 / 78 (auto/); Pulse 71 MON; Pulse Ox 98% on R/A; kk316:53 BP 152 / 78; Pulse 65; Resp 17; Temp 98.2(T); Pulse Ox 98% on R/A; ow8Jyol 7/10;13:00 Body Mass Index 27.34 (70.00 kg, 160.02 cm) zsMDM:13:54 Patient medically screened. fcn16:24 Data reviewed: vital signs, nurses notes, old medical records, lab fcntest result(s), radiologic studies, CT scan. ED course: Results werediscussed with px......agrees with admission.......Discussed with thehospitalist team.....will ADMIT.03/2814:02 Order name: CMP; Complete Time: 15:13 fc4:02 Order name: CBC with diff; C omplete Time: 14:56 fc4:02 Order name: CRP Titer; Complete Time: 15:13 fcn14:02 Order name: Lipase; Complete Time: 15:13 fcn14:11 Order name: BFGI Gastrointestinal panel+LAB fc5:14 Order name: CT Abdomen and Pelvis - without IV or oral; Complete fcnTime: 16:221/6:55 Order name: Nothing By MouthEDMSDispensed Medications:13:59 Drug: NS 0.9% 1000 ml [sodium chloride 0.9 % intravenous solution] es9Bojsw: IV; Rate: 250 mL/hr; Site: left forearm;17:28 Follow up: IV Status: Infusion continued upon admission; IV Intake: ae3107jz66:16 Drug: Ondansetron 8 mg [ondansetron HCl 2 mg/mL intravenous solution kk3(4 mL)] Route: IVP; Infused Over: 2 mins; Site: left forearm;14:45 Follow up: Response: No adverse reaction; Nausea is decreased kk314:38 Drug: metroNIDAZOLE 500 mg [metronidazole 500 mg/100 mL-sodium bd0oxzezwou(iso) intravenous piggyback] Route: IVPB; Site: left forearm;16:12 Follow up: IV Intake: 100ml fbg17:30 Follow up: IV Status: Completed infusion klp16:11 Drug: Ciprofloxacin 400 mg [ciprofloxacin 400 mg/200 mL in 5 % fbgdextrose intravenous piggyback] Route: IVPB; Site: left forearm;17:30 Follow up: IV Status: Completed infusion klp17:25 Drug: Ondansetron 4 mg [ondansetron HCl 2 mg/mL intravenous solution kk3(2 mL)] Route: IVP; Site: left forearm;17:29 Follow up: Response: Medication administered at discharge. jp4Sqasejpupa:Dispatcher [employer] Faustina Gustafson MD MD fcnGilmour, Farah RN RN rupeshShHector ricketts RN Helen Tan RN ANATOLY my8MjrsAna fernando RN klpCorrections: (The following items were deleted from the chart)14:03 14:02 COMPLETE BLOOD COUNT+LAB ordered. UYCEGGQO01:03 14:02 COMPREHENSIVE METABOLIC PROFIL+LAB ordered. IGRCLNEM50:03 14:02 LIPASE.+LAB ordered. SDHWFDLQ06:03 14:02 COMPREHENSIVE METABOLIC PROFIL+LAB ordered. XZNJFQJI44:03 14:02 LIPASE.+LAB ordered. YWDHUIKD48:17 16:27 Med/Surg fcn fbg17:17 16:27 fcn fbg Name Value Range Interpretation Code Description Data Kenia rce(s) Supporting Document(s) Procedure Social History Code Duration Value Status Description Data Source(s ) Smoking 11/01/2019 12:00:00 AM EDT Never Smoker completed Never S moker eCW1 ([facility]) Smoking 11/01/2019 12:00:00 AM EDT Never Smoker completed Never S moker eCW1 ([facility]) Smoking 11/01/2019 12:00:00 AM EDT Never Smoker completed Never S moker eCW1 ([facility]) Smoking 11/01/2019 12:00:00 AM EDT Never Smoker completed Never S moker eCW1 ([facility]) Vital Signs ID Date Data Source UNK Name Value Range Interpretation Code Description Data Source(s) Body surface area Derived from formula 1.78 m2 1.78 m2 [facility] ([facility]) Body weight 74.390 kg 74.390 kg [facility] ([facility]) [place] body weight 115 [lb_av] 115 [lb_av] MEDEN T ([facility]) Body mass index (BMI) [Ratio] 29.0 kg/m2 29.0 k g/m2 [facility] ([facility]) Body weight 164.00 [lb_av] 164.00 [lb_av] [facility] Body height 63 [in_i] 63 [in_i] [facility] ([facility]) 5'3" Diastolic blood pressure 82 mm[Hg] 82 mm[Hg] [facility] ([facility]) Systolic blood pressure 140 mm[Hg] 140 mm[Hg] [facility] Body surface area Derived from formula 1.76 m2 1.76 m2 [facility] ([facility]) Body weight 72.236 kg 72.236 kg [facility] ([facility]) [place] body weight 115 [lb_av] 115 [lb_av] MEDEN T ([facility]) Body mass index (BMI) [Ratio] 28.2 kg/m2 28.2 k g/m2 [facility] ([facility]) Body weight 159.25 [lb_av] 159.25 [lb_av] MEDEN T ([facility]) Body height 63 [in_i] 63 [in_i] [facility] ([facility]) 5'3" Diastolic blood pressure 77 mm[Hg] 77 mm[Hg] [facility] ([facility]) Systolic blood pressure 121 mm[Hg] 121 mm[Hg] M EDENT ([facility]) Diastolic blood pressure 80 mm[Hg] 80 mm[Hg] eCW1 ([facility]) Systolic blood pressure 132 mm[Hg] 132 mm[Hg] e CW1 ([facility]) Respiratory rate 20 /min 20 /min eCW1 ([facility]) Heart rate 65 /min 65 /min eCW1 ([facility]) Body temperature 98.6 [degF] 98.6 [degF] eCW1 ( [facility]) Body mass index (BMI) [Ratio] 28.83 kg/m2 28.83 kg/m2 eCW1 ([facility]) Body weight 76.2 kg 76.2 kg eCW1 ([facility]) Body weight 168 [lb_av] 168 [lb_av] eCW1 ([facility]) Body height 64 [in_i] 64 [in_i] eCW1 ([facility]) Diastolic blood pressure 88 mm[Hg] 88 mm[Hg] eCW1 ([facility]) Systolic blood pressure 163 mm[Hg] 163 mm[Hg] e CW1 ([facility]) Respiratory rate 20 /min 20 /min eCW1 ([facility]) Heart rate 74 /min 74 /min eCW1 ([facility]) Body temperature 98.6 [degF] 98.6 [degF] eCW1 ( [facility]) Body mass index (BMI) [Ratio] 28.83 kg/m2 28.83 kg/m2 eCW1 ([facility]) Body weight 76.2 kg 76.2 kg eCW1 ([facility]) Body weight 168.0 [lb_av] 168.0 [lb_av] eCW1 ([facility]) Body height 64 [in_i] 64 [in_i] eCW1 ([facility]) Diastolic blood pressure 88 mm[Hg] 88 mm[Hg] eCW1 ([facility]) Systolic blood pressure 162 mm[Hg] 162 mm[Hg] e CW1 ([facility]) Deprecated Oxygen saturation in Capillary blood by Oximetry 100 % 100 % eCW1 ([facility]) Respiratory rate 16 /min 16 /min eCW1 ([facility]) Heart rate 69 /min 69 /min eCW1 ([facility]) Body mass index (BMI) [Ratio] 27.80 kg/m2 27.80 kg/m2 eCW1 ([facility]) Body weight Measured 162.0 [lb_av] 162.0 [lb_av ] eCW1 ([facility]) Body height 64 [in_us] 64 [in_us] eCW1 ([facility]) ID Date Data Source [id number] 04/30/2020 12:01:00 AM [facility] Name Value Range Interpretation Code Description Data Source(s) Weight (Calculated Kilograms) 68.95 68.95 [facility] Height (Calculated Centimeters) 162.56 162. 56 [facility] Body Mass Index (BMI) 26.1 26.1 [facility] ID Date Data Source [id number] 04/25/2020 02:24:00 PM EST [facility] Name Value Range Interpretation Code Description Data Source(s) Weight Measurement Method [address] [facility] Weight [address] [facility] Temperature 96.4 96.4 [facility] Respiratory Effort [address] [facility] Respiratory Rate 18 18 [facility] Pulse Assessment Method 1 1 [facility] Pulse Rate [address] [facility] Height [address] [facility] Blood Pressure 144/70 144/70 [facility] Weight Measurement Method [address] [facility] Weight [address] [facility] Temperature 97.3 97.3 [facility] Respiratory Effort [address] [facility] Respiratory Rate 16 16 [facility] Pulse Assessment Method 1 1 [facility] Pulse Rate [address] [facility] Height [address] [facility] Blood Pressure 143/67 143/67 [facility] Weight [address] [facility] Height [address] [facility] ID Date Data Source [id number] 04/20/2020 12:03:00 AM EST [facility] Name Value Range Interpretation Code Description Data Source(s) Weight (Calculated Kilograms) 68.[address] [place] [address] Height (Calculated Centimeters) 162.56 162. 56 [facility] Body Mass Index (BMI) 26.1 26.1 [facility] ID Date Data Source [id number] 04/17/2020 12:13:00 PM EST [facility] Name Value Range Interpretation Code Description Data Source(s) Weight (Calculated Kilograms) 68.95 68.95 [facility] Height (Calculated Centimeters) 162.56 162. 56 [facility] Body Mass Index (BMI) 26.1 261 [facility] ID Date Data Source [id number] 03/12/2020 08:36:00 AM EST [facility] Name Value Range Interpretation Code Description Data Source(s) Weight Measurement Method 8 8 [facility] Weight (Calculated Kilograms) 68.[address] [place] [address] Weight 2560 2560 [facility] 7 7 [facility] Temperature 97.4 97.4 [facility] Respiratory Rate 16 16 [facility] Pulse Assessment Method 4 4 [facility] Pulse Rate 61 61 [facility] Height (Calculated Centimeters) 162.56 162. 56 [facility] Height [address] [facility] pital Blood Pressure 137/82 137/82 [facility] Body Mass Index (BMI) 26.1 26.1 [facility] Weight Measurement Method 8 8 [facility] Weight (Calculated Kilograms) 68.95 68.95 [facility] Weight [address] [facility] p[facility] Temperature Source 7 7 [facility] Temperature 97.4 97.4 [facility] Respiratory Rate 16 16 [facility] Pulse Rate [address] [facility] pital Height (Calculated Centimeters) 162.56 162. 56 [facility] Height 63 63 [facility] Pressure 137/82 137/82 [facility] Body Mass Index (BMI) 26.1 26.1 [facility] Weight (Calculated Kilograms) 68.95 68.95 [facility] Height (Calculated Centimeters) 162.56 162. 56 [facility] Body Mass Index (BMI) 26.1 26.1 [facility] Weight (Calculated Kilograms) 68.95 68.95 [facility] Height (Calculated Centimeters) 162.56 162. 56 [facility] Body Mass Index (BMI) 26.1 26.1 [facility] ID Date Data Source [id number] 03/12/2020 12:17:00 AM EST [facility] Name Value Range Interpretation Code Description Data Source(s) Weight Measurement Method 8 8 [facility] Weight (Calculated Kilograms) 68.95 68.95 [facility] Weight [address] [facility] p[facility] Temperature Source 7 7 [facility] Temperature 97.6 97.6 [facility] Respiratory Effort 1 1 [facility] Respiratory Rate 18 18 [facility] Pulse Assessment Method 4 4 [facility] Pulse Rate [address] [facility] p[facility] Height (Calculated Centimeters) 162.56 162. 56 [facility] Height [address] [facility] Blood Pressure 142/81 142/81 [facility] Body Mass Index (BMI) 26.1 26.1 [facility] Weight Measurement Method 8 8 [facility] Weight (Calculated Kilograms) 68.95 68.95 [facility] Weight [address] [facility] Temperature Source 7 7 [facility] Temperature 97.6 97.6 [facility] Respiratory Effort 1 1 [facility] Respiratory Rate 18 18 [facility] Pulse Assessment Method 4 4 [facility] Pulse Rate [address] [facility] Height (Calculated Centimeters) 162.56 162. 56 [facility] Height 63 63 [facility] Pressure 142/81 142/81 [facility] Body Mass Index (BMI) 26.1 26.1 [facility] Weight (Calculated Kilograms) 68.95 68.95 [facility] Height (Calculated Centimeters) 162.56 162. 56 [facility] Body Mass Index (BMI) 26.1 26.1 [facility] Weight (Calculated Kilograms) 68.95 68.95 [facility] Height (Calculated Centimeters) 162.56 162. 56 [facility] Body Mass Index (BMI) 26.1 26.1 [facility] ID Date Data Source [id number] 12/11/2019 10:47:00 AM EDT [facility] Name Value Range Interpretation Code Description Data Source(s) Weight Measurement Method 8 8 [facility] Weight (Calculated Kilograms) 68.95 68.95 [facility] Weight [address] [facility] Temperature Source 3 3 [facility] Temperature 96.8 96.8 [facility] Respiratory Effort 1 1 [facility] Respiratory Rate 18 18 [facility] Pulse Assessment Method 4 4 [facility] Pulse Rate [address] [facility] Height (Calculated Centimeters) 162.56 162. 56 [facility] Height [address] [facility] Blood Pressure 166/81 166/81 [facility] Body Mass Index (BMI) 26.1 26.1 [facility] Weight Measurement Method 8 8 [facility] Weight (Calculated Kilograms) 68.95 68.95 [facility] Weight [address] [facility] Temperature Source 3 3 [facility] Temperature 96.9 96.9 [facility] Respiratory Effort 1 1 [facility] Respiratory Rate 18 18 [facility] Pulse Assessment Method 4 4 [facility] Pulse Rate [address] [facility] Height (Calculated Centimeters) 162.56 162. 56 [facility] Height [address] [facility] Blood Pressure 157/88 157/88 [facility] Body Mass Index (BMI) 26.1 26.1 [facility] Weight Measurement Method 8 8 [facility] Weight (Calculated Kilograms) 68.95 68.95 [facility] Weight [address] [facility] Temperature Source 3 3 [facility] Temperature 96.9 96.9 [facility] Respiratory Effort 1 1 [facility] Respiratory Rate 18 18 [facility] Pulse Assessment Method 4 4 [facility] Pulse Rate [address] [facility] Height (Calculated Centimeters) 162.56 162. 56 [facility] Height [address] [facility] Blood Pressure 157/88 157/88 [facility] Body Mass Index (BMI) 26.1 26.1 [facility] Weight Measurement Method 8 8 [facility] Weight (Calculated Kilograms) 68.95 68.95 [facility] Weight [address] [facility] Temperature Source 3 3 [facility] Temperature 96.9 96.9 [facility] Respiratory Effort 1 1 [facility] Respiratory Rate 18 18 [facility] Pulse Assessment Method 4 4 [facility] Pulse Rate [address] [facility] Height (Calculated Centimeters) 162.56 162. 56 [facility] Height [address] [facility] Blood Pressure 157/88 157/88 [facility] Body Mass Index (BMI) 26.1 26.1 [facility] Weight (Calculated Kilograms) 68.95 68.95 [facility] Height (Calculated Centimeters) 162.56 162. 56 [facility] Body Mass Index (BMI) 26.1 26.1 [facility] ID Date Data Source [id number] 11/03/2019 11:27:00 AM EDT [facility] Name Value Range Interpretation Code Description Data Source(s) Weight (Calculated Kilograms) 68.95 68.95 [facility] Height (Calculated Centimeters) 162.56 162. 56 [facility] Body Mass Index (BMI) 26.1 26.1 [facility] ID Date Data Source [id number] 10/29/2019 12:01:00 AM EDT [facility] Name Value Range Interpretation Code Description Data Source(s) Weight (Calculated Kilograms) 68.95 68.95 [facility] Height (Calculated Centimeters) 162.56 162. 56 [facility] Body Mass Index (BMI) 26.1 26.1 [facility] ID Date Data Source [id number] 08/08/2019 06:40:00 AM EDT [facility] Name Value Range Interpretation Code Description Data Source(s) Weight Measurement Method 8 8 [facility] Weight (Calculated Kilograms) 68.95 68.95 [facility] Weight [address] [facility] Temperature Source 7 7 [facility] Temperature 97.8 97.8 [facility] Respiratory Effort 1 1 [facility] Respiratory Rate 16 16 [facility] Pulse Assessment Method 4 4 [facility] Pulse Rate [address] [facility] Height (Calculated Centimeters) 162.56 162. 56 [facility] Height 63 63 [facility] Pressure 158/73 158/73 [facility] Body Mass Index (BMI) 26.1 26.1 [facility] Weight Measurement Method 8 8 [facility] Weight (Calculated Kilograms) 68.95 68.95 [facility] Weight [address] [facility] Temperature Source 7 7 [facility] Temperature 97.8 97.8 [facility] Respiratory Effort 1 1 [facility] Respiratory Rate 16 16 [facility] Pulse Assessment Method 4 4 [facility] Pulse Rate [address] [facility] Height (Calculated Centimeters) 162.56 162. 56 [facility] Height [address] [facility] Blood Pressure 158/73 158/73 [facility] Body Mass Index (BMI) 26.1 26.1 [facility] Weight Measurement Method 8 8 [facility] Weight (Calculated Kilograms) 68.95 68.95 [facility] Weight [address] [facility] Temperature Source 7 7 [facility] Temperature 97.8 97.8 [facility] Respiratory Effort 1 1 [facility] Respiratory Rate 16 16 [facility] Pulse Assessment Method 4 4 [facility] Pulse Rate [address] [facility] Height (Calculated Centimeters) 162.56 162. 56 [facility] Height 63 63 [facility] Pressure 158/73 158/73 [facility] Body Mass Index (BMI) 26.1 26.1 [facility] Weight Measurement Method 8 8 [facility] Weight (Calculated Kilograms) 68.95 68.95 [facility] Weight [address] [facility] Temperature Source 7 7 [facility] Temperature 97.8 97.8 [facility] Respiratory Effort 1 1 [facility] Respiratory Rate 16 16 [facility] Pulse Assessment Method 4 4 [facility] Pulse Rate [address] [facility] Height (Calculated Centimeters) 162.56 162. 56 [facility] Height [address] [facility] Blood Pressure 158/73 158/73 [facility] Body Mass Index (BMI) 26.1 26.1 [facility] Weight (Calculated Kilograms) 68.95 68.95 [facility] Height (Calculated Centimeters) 162.56 162. 56 [facility] Body Mass Index (BMI) 26.1 26.1 [facility] ID Date Data Source [id number] 05/02/2019 06:05:00 AM EST [facility] Name Value Range Interpretation Code Description Data Source(s) Weight (Calculated Kilograms) 68.[address] [place] [address] Height (Calculated Centimeters) 162.56 162. 56 [facility] Body Mass Index (BMI) 26.1 26.1 [facility] Weight (Calculated Kilograms) 68.[address] [place] [address] Height (Calculated Centimeters) 162.56 162. 56 [facility] Body Mass Index (BMI) 26.1 26.1 [facility] ID Date Data Source [id number] 04/14/2019 08:12:00 AM [facility] Name Value Range Interpretation Code Description Data Source(s) WEIGHT 68 kilos 68 kilos [facility] HEIGHT 162.56 centimeters 162.56 centimeter [facility] WEIGHT 67.8 kilos 67.8 kilos [facility] HEIGHT 162.56 centimeters 162.56 centimeter [facility] ID Date Data Source [id number] 04/09/2019 12:17:00 PM EST [facility] Name Value Range Interpretation Code Description Data Source(s) Weight Measurement Method 8 8 [facility] Weight (Calculated Kilograms) 68.95 68.95 [facility] Weight [address] [facility] Temperature Source 7 7 [facility] Temperature 98.2 98.2 [facility] Respiratory Rate 18 18 [facility] Pulse Assessment Method 4 4 [facility] Pulse Rate [address] [facility] Height (Calculated Centimeters) 162.56 162. 56 [facility] Height 63 63 [facility] Pressure 151/78 151/78 [facility] Body Mass Index (BMI) 26.1 26.1 [facility] Weight Measurement Method 8 8 [facility] Weight (Calculated Kilograms) 68.95 68.95 [facility] Weight [address] [facility] Temperature Source 7 7 [facility] Temperature 98.2 98.2 [facility] Respiratory Rate 18 18 [facility] Pulse Rate [address] [facility] Height (Calculated Centimeters) 162.56 162. 56 [facility] Height [address] [facility] Blood Pressure 137/77 137/77 [facility] Body Mass Index (BMI) 26.1 26.1 [facility] Weight Measurement Method 8 8 [facility] Weight (Calculated Kilograms) 68.95 68.95 [facility] Weight [address] [facility] Temperature Source 7 7 [facility] Temperature 98.2 98.2 [facility] Respiratory Rate 18 18 [facility] Pulse Rate 73 73 [facility] Height (Calculated Centimeters) 162.56 162. 56 [facility] Height [address] [facility] Blood Pressure 137/77 137/77 [facility] Body Mass Index (BMI) 26.1 26.1 [facility] Weight (Calculated Kilograms) 68.95 68.95 [facility] Height (Calculated Centimeters) 162.56 162. 56 [facility] Body Mass Index (BMI) 26.1 26.1 [facility] ID Date Data Source [id number] 04/09/2019 12:11:00 PM EST [facility] Name Value Range Interpretation Code Description Data Source(s) Weight Measurement Method 8 8 [facility] Weight (Calculated Kilograms) 68.95 68.95 [facility] Weight [address] [facility] Temperature Source 7 7 [facility] Weight Measurement Method 8 8 [facility] Weight (Calculated Kilograms) 68.95 68.95 [facility] Weight [address] [facility] Temperature 98.1 98.1 [facility] Respiratory Effort 1 1 [facility] Respiratory Rate 16 16 [facility] Pulse Assessment Method 4 [facility] Pulse Rate [address] [facility] Height (Calculated Centimeters) 162.56 162. 56 [facility] Blood Pressure 138/84 138/84 [facility] Body Mass Index (BMI) 26.1 26.1 [facility] Weight Measurement Method 8 8 [facility] Weight (Calculated Kilograms) 68.95 68.95 [facility] Weight [address] [facility] Temperature 97.7 97.7 [facility] Respiratory Effort 1 1 [facility] Respiratory Rate 16 16 [facility] Pulse Assessment Method 4 4 [facility] Pulse Rate [address] [facility] Height (Calculated Centimeters) 162.56 162. 56 [facility] Blood Pressure 143/75 143/75 [facility] Body Mass Index (BMI) 26.1 26.1 [facility] Weight (Calculated Kilograms) 68.95 68.95 [facility] Height (Calculated Centimeters) 162.56 162. 56 [facility] Body Mass Index (BMI) 26.1 26.1 [facility] Weight (Calculated Kilograms) 68.95 68.95 [facility] Height (Calculated Centimeters) 162.56 162. 56 [facility] Body Mass Index (BMI) 26.1 261 [facility] ID Date Data Source [id number] 04/10/2019 01:13:00 AM EST [facility] Name Value Range Interpretation Code Description Data Source(s) WEIGHT 70.45 kilos 70.45 kilos [facility] HEIGHT 162.56 centimeters 162.56 centimeter [facility] WEIGHT 70.45 kilos 70.45 kilos [facility] HEIGHT 162.56 centimeters 162.56 centimeter [facility] WEIGHT 70.45 kilos 70.45 kilos [facility] HEIGHT 162.56 centimeters 162.56 centimeter [facility]
[2020-06-06] MEDS ORDERED: propofoL 200 MG/20 ML VIAL As Ordered ONE (12:10)
--- NOTE | 2020-06-06 12:40 | ROOR ---
Patient Name: Leslee Gonzalez Procedure Date: 06/06/2020 11:58 AM Date of : 1960 Age: 60 Room: [facility] Gender: Female Note Status: Finalized Procedure: Colonoscopy Indications: High risk colon cancer surveillance: Personal history of colonic polyps Providers: Ever Mcbride MD Referring MD: Avinash Cartagena Md Requesting Provider: Medicines: Monitored Anesthesia Care Complications: No immediate complications. Procedure: Pre-Anesthesia Assessment: - Prior to the procedure, a History and Physical was performed, and patient medications and allergies were reviewed. The patient is competent. The risks and benefits of the procedure and the sedation options and risks were discussed with the patient. All questions were answered and informed consent was obtained. Patient identification and proposed procedure were verified by the physician, the nurse and the anesthesiologist in the procedure room. Mental Status Examination: alert and oriented. Airway Examination: normal oropharyngeal airway and neck mobility. Respiratory Examination: clear to auscultation. CV Examination: normal. Prophylactic Antibiotics: The patient does not require prophylactic antibiotics. Prior Anticoagulants: The patient has taken no previous anticoagulant or antiplatelet agents. ASA Grade Assessment: II - A patient with mild systemic disease. After reviewing the risks and benefits, the patient was deemed in satisfactory condition to undergo the procedure. The anesthesia plan was to use monitored anesthesia care (MAC). Immediately prior to administration of medications, the patient was re-assessed for adequacy to receive sedatives. The heart rate, respiratory rate, oxygen saturations, blood pressure, adequacy of pulmonary ventilation, and response to care were monitored throughout the procedure. The physical status of the patient was re-assessed after the procedure. The Colonoscope was introduced through the anus and advanced to the terminal ileum, with identification of the appendiceal orifice and IC valve. The colonoscopy was performed without difficulty. The patient tolerated the procedure well. The quality of the bowel preparation was good. The terminal ileum, ileocecal valve, appendiceal orifice, and rectum were photographed. Scope insertion time was 4 minutes. Scope withdrawal time was 8 minutes. The total duration of the procedure was 12 minutes. Findings: The perianal and digital rectal examinations were normal. The terminal ileum appeared normal. A 4 mm polyp was found in the descending colon. The polyp was sessile. The polyp was removed with a jumbo cold forceps. Resection and retrieval were complete. Verification of patient identification for the specimen was done by the physician and nurse using the patient's name, date and medical record number. Estimated blood loss was minimal. Multiple small and large-mouthed diverticula were found in the sigmoid colon. There was narrowing of the colon in association with the diverticular opening. There was evidence of diverticular spasm. Faith-diverticular erythema was seen. There was no evidence of diverticular bleeding. A tattoo was seen in the distal descending colon. The tattoo site appeared normal. Non-bleeding external and internal hemorrhoids were found during retroflexion. The hemorrhoids were medium-sized. Impression: - The examined portion of the ileum was normal. - One 4 mm polyp in the descending colon, removed with a jumbo cold forceps. Resected and retrieved. - Severe diverticulosis in the sigmoid colon. There was narrowing of the colon in association with the diverticular opening. There was evidence of diverticular spasm. Faith-diverticular erythema was seen. There was no evidence of diverticular bleeding. - A tattoo was seen in the distal descending colon. The tattoo site appeared normal. - Non-bleeding external and internal hemorrhoids. Recommendation: - Patient has a contact number available for emergencies. The signs and symptoms of potential delayed complications were discussed with the patient. Return to normal activities tomorrow. Written discharge instructions were provided to the patient. - High fiber diet. - Continue present medications. - Await pathology results. - Repeat colonoscopy in 5 years for surveillance based on pathology results. - Telephone GI clinic for pathology results in 2 weeks. - Refer to a colo-rectal surgeon for evaluation for sigmoid colectomy due to severe recurrent diverticulitis. - Return to primary care physician. Procedure Code(s): --- Professional --- 71421, Colonoscopy, flexible; with biopsy, single or multiple Diagnosis Code(s): --- Professional --- Z86.010, Personal history of colonic polyps K64.8, Other hemorrhoids K63.5, Polyp of colon K57.30, Diverticulosis of large intestine without perforation or abscess without bleeding CPT copyright 2019 [employer]. All rights reserved. The codes documented in this report are preliminary and upon straightener gun parts review may be revised to meet current compliance requirements. Ever Mcbride MD Ever Mcbride MD 06/06/2020 12:39:31 PM Electronically signed by Ever Mcbride MD Number of Addenda: 0 Note Initiated On: 06/06/2020 11:58 AM Estimated Blood Loss: Estimated blood loss was minimal.
[2020-06-06 13:00] VITALS: BP 176/77
== END 2020-06-06 13:12 | disposition home or self-care (01) ==
LOC: M OPP 10:20
PROVIDERS: ATTEND Internal Medicine Gastroenterology
DX: Z12.11 Encounter for screening for malignant neoplasm of colon (principal); Z86.010 Personal history of colon polyps; D12.6 Benign neoplasm of colon, unspecified; K64.8 Other hemorrhoids; K57.30 Diverticulosis of large intestine without perforation or abscess without bleeding; K21.9 Gastro-esophageal reflux disease without esophagitis; Z79.899 Other long term (current) drug therapy

== ENCOUNTER 2020-06-06 17:44 | Emergency (ER) | payer OTHER ==
[~2020-06-06 17:44] MED LIST changes: -LIDOCAINE 2% 100MG/5ML SDV (FOR ANES.) As Ordered ONE; -NS 1,000 ML IV ONE; -propofoL 200 MG/20 ML VIAL As Ordered ONE
[2020-06-06] MEDS ORDERED: ONDANSETRON 4MG/2ML VIAL IV ONE (18:25)
[2020-06-06] MEDS ORDERED: PANTOPRAZOLE 40MG VIAL (C9113 PER 1) IV ONE (18:25)
[2020-06-06] MEDS ORDERED: NS 1,000 ML IV ONE ×2 (18:25→21:45)
[2020-06-06 19:06] LABS: BASO # 0.1 10^3/uL (0.0-0.2); BASO % 0.4 % (0.0-1.0); HEMATOCRIT 42.7 % (36.0-47.0); HEMOGLOBIN 14.4 g/dl (12.0-15.5); LYMPH # 0.7 10^3/uL (1.5-5.0); LYMPH % 5.2 % (24.0-44.0); MEAN CORPUSCULAR HEMOGLOBIN 31.2 pg (27.0-33.0); MEAN CORPUSCULAR HGB CONC 33.7 g/dl (32.0-36.5); MEAN CORPUSCULAR VOLUME 92.4 fl (80.0-96.0); MONO # 0.4 10^3/uL (0.0-0.8); MONO % 2.5 % (2.0-8.0); NEUTROPHILS # 12.7 10^3/uL (1.5-8.5); NEUTROPHILS % 91.4 % (36.0-66.0); PLATELET COUNT, AUTOMATED 249 10^3/uL (150-450); RED BLOOD COUNT 4.62 10^6/uL (4.00-5.40); WHITE BLOOD COUNT 13.9 10^3/uL (4.0-10.0)
[2020-06-06] MEDS ORDERED: PROMETHAZINE INJ 25 MG/ML VIAL (J2550) IM ONE (19:50)
[2020-06-06] MEDS ORDERED: PROMETHAZINE INJ 25 MG/ML VIAL (J2550) IV ONE (19:55)
[2020-06-06 19:58] LABS: BILIRUBIN,DIRECT 0.1 MG/DL (0.0-0.2); BILIRUBIN,TOTAL 0.7 MG/DL (0.2-1.0); CALCIUM LEVEL 9.4 MG/DL (8.8-10.2); CREATININE FOR GFR 1.02 MG/DL (0.55-1.30); GLOMERULAR FILTRATION RATE 58.8 (>45); POTASSIUM SERUM 3.8 MEQ/L (3.5-5.1); TOTAL PROTEIN 7.8 GM/DL (6.4-8.2)
--- NOTE | 2020-06-06 21:06 | REPVR ---
PROCEDURE INFORMATION: Exam: XR Complete Acute Abdomen Series Exam date and time: 06/06/2020 6:23 PM Age: 60 years old Clinical indication: Other: Abdomina pain; Additional info: Abdominal pain TECHNIQUE: Imaging protocol: XR complete acute abdomen series, including 2 or more views of the abdomen and a single view chest. COMPARISON: CT ABD PELVIS WITH CONTRAST 01/12/2017 2:31 PM FINDINGS: Lungs: Normal. No consolidation. Pleural spaces: Normal. No pleural effusions. No pneumothorax. Heart/Mediastinum: Normal. No cardiomegaly. Gastrointestinal tract: Normal. No bowel dilation. Intraperitoneal space: Normal. No free air. Bones/joints: Normal. No acute fracture. Soft tissues: Normal. IMPRESSION: No acute findings. Electronically signed by: Dylan Dubon On 06/06/2020 21:06:45 PM
--- OUTSIDE RECORDS SUMMARY | 2020-06-06 21:18 | CCD ---
Author Author [facility] Organization [facility] Address Unknown Phone Unavailable Care Team Providers Care Guest Services Associate Name Role Phone James Del Angel Unavailable Unavailable Cougler, S Lew DUMPING MACHINE OPERATOR Unavailable Unavailable Cougler, S Lew DUMPING MACHINE OPERATOR Unavailable Unavailable Cougler, S Lew DUMPING MACHINE OPERATOR Unavailable Unavailable Cougler, S Lew DUMPING MACHINE OPERATOR Unavailable Unavailable Cougler, S Lew DUMPING MACHINE OPERATOR Unavailable Unavailable Cougler, S Lew DUMPING MACHINE OPERATOR Unavailable Unavailable Cougler, S Lew DUMPING MACHINE OPERATOR Unavailable Unavailable Cougler, S Lew DUMPING MACHINE OPERATOR Unavailable Unavailable Cougler, S Lew DUMPING MACHINE OPERATOR Unavailable Unavailable Cougler, S Lew DUMPING MACHINE OPERATOR Unavailable Unavailable Cougler, S Lew DUMPING MACHINE OPERATOR Unavailable Unavailable Cougler, S Lew DUMPING MACHINE OPERATOR Unavailable Unavailable Cougler, S Lew DUMPING MACHINE OPERATOR Unavailable Unavailable Cougler, S Lew DUMPING MACHINE OPERATOR Unavailable Unavailable Cougler, S Lew DUMPING MACHINE OPERATOR Unavailable Unavailable Cougler, S Lew DUMPING MACHINE OPERATOR Unavailable Unavailable Cougler, S Lew DUMPING MACHINE OPERATOR Unavailable Unavailable Cougler, S Lew DUMPING MACHINE OPERATOR Unavailable Unavailable Cougler, S Lew DUMPING MACHINE OPERATOR Unavailable Unavailable Cougler, S Lew DUMPING MACHINE OPERATOR Unavailable Unavailable Cougler, S Lew DUMPING MACHINE OPERATOR Unavailable Unavailable Cougler, S Lew DUMPING MACHINE OPERATOR Unavailable Unavailable Cougler, S Lew DUMPING MACHINE OPERATOR Unavailable Unavailable Cougler, S Lew DUMPING MACHINE OPERATOR Unavailable Unavailable Cougler, S Lew DUMPING MACHINE OPERATOR Unavailable Unavailable Cougler, S Lew DUMPING MACHINE OPERATOR Unavailable Unavailable Cougler, S Lew DUMPING MACHINE OPERATOR Unavailable Unavailable Cougler, S Lew DUMPING MACHINE OPERATOR Unavailable Unavailable Cougler, S Lew DUMPING MACHINE OPERATOR Unavailable Unavailable Cougler, S Lew DUMPING MACHINE OPERATOR Unavailable Unavailable Cougler, S Lew DUMPING MACHINE OPERATOR Unavailable Unavailable Cougler, S Lew DUMPING MACHINE OPERATOR Unavailable Unavailable Cougler, S Lew DUMPING MACHINE OPERATOR Unavailable Unavailable Cougler, S Lew DUMPING MACHINE OPERATOR Unavailable Unavailable Cougler, S Lew DUMPING MACHINE OPERATOR Unavailable Unavailable Cougler, S Lew DUMPING MACHINE OPERATOR Unavailable Unavailable Cougler, S Lew DUMPING MACHINE OPERATOR Unavailable Unavailable Cougler, S Lew DUMPING MACHINE OPERATOR Unavailable Unavailable Cougler, S Lew DUMPING MACHINE OPERATOR Unavailable Unavailable Cougler, S Lew DUMPING MACHINE OPERATOR Unavailable Unavailable Anat Berkowitz MD, ND Unavailable [phone] Anat Berkowitz MD, ND Unavailable [phone] Anat Berkowitz MD, ND Unavailable [phone] Anat Berkowitz MD, ND Unavailable [phone] Anat Berkowitz MD, ND Unavailable [phone] Anat Berkowitz MD, ND Unavailable [phone] Anat Berkowitz MD, ND Unavailable [phone] Anat Brekowitz MD, ND Unavailable [phone] Anat Berkowitz MD, ND Unavailable Anat Berkowitz MD, ND Unavailable [phone] Anat Berkowitz MD, ND Unavailable [phone] Anat Berkowitz MD, ND Unavailable [phone] Anat Berkowitz MD, ND Unavailable [phone] Sho REYNAAnat ND Unavailable [phone] Sho REYNAAnat ND Unavailable + 6 Sho REYNAAnat ND Unavailable + 6 Sho REYNAAnat ND Unavailable + 6 Sho REYNAAnat ND Unavailable [phone] Sho REYNAAnat ND Unavailable + 6 Sho REYNAAnat ND Unavailable + 6 Sho REYNAAnat ND Unavailable [phone] Sho REYNAAnat ND Unavailable [phone] Sho REYNAAnat ND Unavailable [phone] Del Angel, R Andrei PA Unavailable [...] Unavailable MARAVEGIAS, Leyla MUNGUIA MD Unavailable Unavailable [place], F Srini PA Unavailable Unavailable [place], F Srini PA Unavailable Unavailable [place], F Srini PA Unavailable Unavailable [place], F Srini PA Unavailable Unavailable Oz, F Srini PA Unavailable Unavailable [place], F Srini PA Unavailable Unavailable [place], F Srini PA Unavailable Unavailable [place], F Srini PA Unavailable Unavailable Oz, F Srini PA Unavailable Unavailable Oz, F Srini PA Unavailable Unavailable BROWN, ANEESH MAGED DUMPING MACHINE OPERATOR Unavailable Unavailable BROWN, ANEESH MAGED DUMPING MACHINE OPERATOR Unavailable Unavailable BROWN, ANEESH MAGED DUMPING MACHINE OPERATOR Unavailable Unavailable BROWN, ANEESH MAGED DUMPING MACHINE OPERATOR Unavailable Unavailable BROWN, ANEESH MAGED DUMPING MACHINE OPERATOR Unavailable Unavailable BROWN, ANEESH MAGED DUMPING MACHINE OPERATOR Unavailable Unavailable BROWN, ANEESH MAGED DUMPING MACHINE OPERATOR Unavailable Unavailable BROWN, ANEESH MAGED DUMPING MACHINE OPERATOR Unavailable Unavailable BROWN, ANEESH MAGED DUMPING MACHINE OPERATOR Unavailable Unavailable BROWN, ANEESH MAGED DUMPING MACHINE OPERATOR Unavailable Unavailable BROWN, ANEESH MAGED DUMPING MACHINE OPERATOR Unavailable Unavailable BROWN, ANEESH MAGED DUMPING MACHINE OPERATOR Unavailable Unavailable BROWN, ANEESH MAGED DUMPING MACHINE OPERATOR Unavailable Unavailable BROWN, ANEESH MAGED DUMPING MACHINE OPERATOR Unavailable Unavailable BROWN, ANEESH MAGED DUMPING MACHINE OPERATOR Unavailable Unavailable BROWN, ANEESH MAGED DUMPING MACHINE OPERATOR Unavailable Unavailable BROWN, ANEESH MAGED DUMPING MACHINE OPERATOR Unavailable Unavailable BROWN, ANEESH MAGED DUMPING MACHINE OPERATOR Unavailable Unavailable BROWN, ANEESH MAGED DUMPING MACHINE OPERATOR Unavailable Unavailable BROWN, ANEESH MAGED DUMPING MACHINE OPERATOR Unavailable Unavailable BROWN, ANEESH MAGED DUMPING MACHINE OPERATOR Unavailable Unavailable BROWN, ANEESH MAGED DUMPING MACHINE OPERATOR Unavailable Unavailable BROWN, ANEESH MAGED DUMPING MACHINE OPERATOR Unavailable Unavailable BROWN, ANEESH MAGED DUMPING MACHINE OPERATOR Unavailable Unavailable BROWN, ANEESH MAGED DUMPING MACHINE OPERATOR Unavailable Unavailable BROWN, ANEESH MAGED DUMPING MACHINE OPERATOR Unavailable Unavailable BROWN, ANEESH MAGED DUMPING MACHINE OPERATOR Unavailable Unavailable BROWN, ANEESH MAGED DUMPING MACHINE OPERATOR Unavailable Unavailable BROWN, ANEESH MAGED DUMPING MACHINE OPERATOR Unavailable Unavailable BROWN, ANEESH MAGED DUMPING MACHINE OPERATOR Unavailable Unavailable BROWN, ANEESH MAGED DUMPING MACHINE OPERATOR Unavailable Unavailable BROWN, ANEESH MAGED DUMPING MACHINE OPERATOR Unavailable Unavailable BROWN, ANEESH MAGED DUMPING MACHINE OPERATOR Unavailable Unavailable BROWN, ANEESH MAGED DUMPING MACHINE OPERATOR Unavailable Unavailable BROWN, ANEESH MAGED DUMPING MACHINE OPERATOR Unavailable Unavailable BROWN, ANEESH MAGED DUMPING MACHINE OPERATOR Unavailable Unavailable BROWN, ANEESH MAGED DUMPING MACHINE OPERATOR Unavailable Unavailable BROWN, ANEESH MAGED DUMPING MACHINE OPERATOR Unavailable Unavailable BROWNANEESH DUMPING MACHINE OPERATOR Unavailable Unavailable ZEGIL, D RUSSELL SOLAR POOL HEATING INSTALLER Unavailable Unavailable ZEGIL, D RUSSELL SOLAR POOL HEATING INSTALLER Unavailable Unavailable ZEGIL, D RUSSELL SOLAR POOL HEATING INSTALLER Unavailable Unavailable Hadian, Avinash Unavailable Unavailable Hadian, [...] Festus Sandoval JR, MD Unavailable Unavailable Festus Sandvoal JR, MD Unavailable Unavailable Festus Sandoval JR, [...] Unavailable Uriel BLANCHARD MD Unavailable Unavailable Festus Hwang DPM Unavailable Unavailable Uriel Last MD, M.D. Unavailable [phone] Uriel Last MD, M.D. Unavailable [phone] Uriel Last MD, M.D. Unavailable [phone] Uriel Last MD, M.D. Unavailable [phone] Uriel Last MD, M.D. Unavailable [phone] Uriel Last MD, M.D. Unavailable [phone] Uriel Last MD, M.D. Unavailable [phone] Uriel Last MD, M.D. Unavailable [phone] Uriel Last MD, M.D. Unavailable [phone] Uriel Last MD, M.D. Unavailable [phone] TONYA ROGERS MD Unavailable Unavailable TONYA ROGERS [...] is protected by Article 27-F of the [facility] Public Health law. If you continue you may have access to information: Regarding HIV / AIDS; Provided by facilities licensed or operated by the [facility] Office of Mental Health; or Provided by the [facility] Office for People With Developmental Disabilities. If such information is present, then the following [facility] mandated warning applies: This information has been [...] law may result in a fine or fpc sentence or both. A general authorization for the release of medical or other information is NOT sufficient authorization for further disc losure. Allergies and Adverse Reactions Type Description Substance Reaction Status Data Source(s ) Drug allergy Drug allergy No Known Allergies [facility] Drug allergy Drug allergy No Known Allergies [facility] Drug allergy No Known Drug Allergies No Known Drug Allergies [facility] Family History Family Member Name Family Member Gender Family Member Status Date o f Status Description Data Source(s) Unknown Unknown Problem MEDENT ([facility]) LUNG CA (MOP/FOP) Encounters Encounter Providers Location Date Indications Data Source(s ) Outpatient Attender: Dahiana MASSEY DPM, DPM CPSCAORT- CPSGNPOD 05/14/2020 10:44:00 AM EST - 05/14/2020 10:45:00 AM EST [facility] Patient discharged. Outpatient Attender: Dahiana MASSEY DPM, DPM CPSCAORT- CPSGNPOD 04/30/2020 11:34:00 AM EST - 04/30/2020 11:35:00 AM EST [facility] Patient discharged. Outpatient Attender: MAGED WHITAKER NP [facility] 2020 08:01:00 AM EST - 04/29/2020 08:02:00 AM EST YRLY, DO A DEXA ASWELL AT THIS APPT [id number] [facility] YRLY, DO A DEXA ASWELL AT THIS APPT Z138 20 Patient discharged. Outpatient Attender: Dahiana Hwang DPMAttender: Eric caal CAITIEEve DAHIANA VARGAS DPM CPSCAORT-SDCSDC 04/24/2020 06:55:00 AM EST - 04/24/2020 10:05:00 AM ES T LEFT FOOT FOREIGN BODY, RETAINED HARDWARE [facility] LEFT FOOT FOREIGN BODY, RETAINED HARDWAR E Patient discharged. Outpatient Attender: MAGED WHITAKER NP CPSCAORT-CPSGNOBG 04/12 12:51:00 PM EST - 04/22/2020 12:52:00 PM EST [facility] Patient discharged. Outpatient Attender: Dahiana Hwang DPMAttender: Eric afua MASSEY DPM DP ED-LABPNP 04/19/2020 09:31:00 AM EST - 04/19/2020 09:32:00 AM EST [id number] 12 [facility] [id number] Patient discharged. Outpatient Attender: Avinash Cartagena CPSCAORT-CPSGNIMD 021 01:01:00 PM EST - 04/18/2020 01:02:00 PM [facility] Patient discharged. Outpatient Attender: Dahiana MASSEY DPM, DPM CPSCAORT- CPSGNPOD 04/16/2020 03:25:00 PM EST - 04/16/2020 03:26:00 PM EST [facility] Patient discharged. Outpatient Attender: Dahiana MASSEY DPM DPM ED-IMAG 04/16/2020 02:57:00 PM EST - 04/16/2020 02:58:00 PM EST [id number] [facility] [id number] Patient discharged. Emergency Attender: RUSSELL RAMOS [facility] ED-ED 04/2019 07:45:00 AM EST - 03/12/2020 08:35:00 AM EST THROWING UP,CHEST HURTS [facility] THROWING UP,CHEST HURTS Patient discharged. Emergency Attender: Lew Mckeon NP ED-ED 03/11 10:38:00 PM EST - 03/12/2020 12:13:00 AM EST LIGHT HEADED [facility] LIGHT HEADED Patient discharged. Outpatient Attender: Vasquez Sung/Lin/Will/Venkatesh dl 01/24/2020 10:50:00 AM EDT [facility]ENT ([facility] ) Outpatient Attender: Moses Jeff MD CPSCAORT-CPSCADER 0 09:14:00 AM EDT - 01/03/2020 09:15:00 AM EDT [facility] Patient discharged. Emergency Attender: EZRA CHEN MDAttender: Srini GREY ED-ED 12/07/2019 07:27:00 AM EDT - 12/07/2019 08:40:00 AM EDT FELL,HIT HEAD,BRUISE ON RIGHT LEG [facility] FELL,HIT HEAD,BRUISE ON RIGHT LEG Patient discharged. Outpatient 3 [facility] [address] [place] [address] 11/27/2019 12:00:00 AM EDT eCW1 ([facility]) Outpatient Attender: Anat Berkowitz MD CPSCAORT-CPSGNIMD 11/17/2019 10:12:00 AM EDT - 11/17/2019 10:13:00 AM EDT [facility] Patient discharged. Outpatient [address] [address] 11/16/2019 12:00:00 AM EDT eCW1 ([facility]) Outpatient 3 [facility] [address] [place] [address] 11/15/2019 12:00:00 AM EDT eCW1 ([facility]) [facility] [address] [facility] [address] [place] [address] 11/14/2019 12:00:00 AM EDT eCW1 ([facility]) Outpatient Attender: Michelle Last MD ED-IMAG 11/02/2019 02:59:00 PM EDT - 11/02/2019 03:00:00 PM EDT M54.5 [facility] M54.5 Patient discharged. Outpatient 3 [facility] [address] [place] [address] 11/01/2019 12:00:00 AM EDT eCW1 ([facility]) Outpatient Attender: Avinash Cartagena CPSCAORT-CPSGNIMD 020 01:44:00 PM EDT - 10/30/2019 01:45:00 PM EDT [facility] Patient discharged. Outpatient Attender: Avinash Cartagena ED-LAB 0 08:09:00 AM EDT - 10/28/2019 08:10:00 AM EDT E782 [facility] E782 Patient discharged. Emergency Attender: FAUSTINA MATA MD ER-ER 09/04/2019 02:44:00 PM EDT - 09/04/2019 06:24:00 PM EDT [facility] Patient discharged. Outpatient Attender: Avinash ROMEROCAHUBER-CPSGNIMD 020 01:05:00 PM EDT - 08/07/2019 01:06:00 PM EDT [facility] Patient discharged. Emergency Attender: ARIAS GREY ED-ED 08/03 12:47:00 PM EDT - 08/04/2019 01:25:00 PM EDT L FOOT PAIN [facility] L FOOT PAIN Patient discharged. [facility] 3 [facility] [address] [place] [address] 05/16/2019 12:00:00 AM EST eCW1 ([facility]) Outpatient Attender: Avinash Cartagena CPSCAORT-CPSGNIMD 020 02:30:00 PM EST - 04/27/2019 02:31:00 PM EST [facility] Patient discharged. Outpatient Attender: MAGED WHITAKER NP ED-IMAG 2019 01:59:00 PM EST - 04/27/2019 02:00:00 PM EST SCREENING [facility] SCREENING Patient discharged. Outpatient Attender: MAGED WHITAKER NP CPSCAORT-CPSGNOBG 12/2019 01:50:00 PM EST - 04/20/2019 01:51:00 PM EST [facility] Patient discharged. [facility] [address] [place] [address] 04/17/2019 12:00:00 AM EST eCW1 [facility] Inpatient Attender: FAUSTINA Mayer MDAttender: PORFIRIO BLANCHARD MDAttender: PORFIRIO BLANCHARD MDAdmitter: PORFIRIO BLANCHARD MD ER-2EAST 04/08/2019 04 :56:00 PM EST - 04/10/2019 03:17:00 PM EST [facility] Patient discharged. Emergency Attender: Andrei Del Angel PAAttender: Andrei GREY ED-ED 04/07/2019 03:08:00 AM EST - 04/07/2019 06:14:00 AM EST VOMITING [facility] VOMITING Patient discharged. Outpatient CPSCAORT-LABEJN 04/04/2019 09:03:00 AM EST [facility] Emergency Attender: Srini Olvera AAttender: Andrei Del Angel PAAttender: Andrei GREY ED-ED 04/04/2019 06:16:00 AM EST - 04/04/2019 08:58:00 AM EST NAUSEA STOMACH PAINS [facility] NAUSEA STOMACH PAINS Patient discharged. Outpatient Attender: ИВАН KOTHARI MD 01/17/2019 02:54:00 PM [facility] Emergency Attender: FAUSTINA MATA MD ER-ER 11/07/2018 06:08:00 PM EDT - 11/07/2018 07:55:00 PM [facility] Outpatient Attender: ИВАН KOTHARI MD 10/17/2018 12:56:00 PM [facility] Outpatient Attender: ИВАН KOTHARI MD 09/22/2018 03:31:00 PM [facility] Outpatient Attender: ИВАН KOTHARI MD ER-ASROXANNA 11/03/2017 08:43:00 AM [facility] Outpatient Attender: ИВАН KOTHARI MD ER-ASROXANNA 09/22/2017 06:23:00 AM [facility] Outpatient Attender: ИВАН KOTHARI MD ER-ASUR 05/05/2017 06:28:00 AM [facility] Outpatient Attender: TONYA ROGERS MDAttender: BAMBI ROGERS MD ER-ASUR 09/14/2016 06:36:00 AM EDT [facility] Immunizations Vaccine Date Status Description Data [...] 12:00:00 AM EDT ORAL active Enmanuel ALVARES ([facility], ) POLYETHYLENE GLYCOL 3350 142 MG/ML Oral Solution [Miralax] M iralax 01/24/2020 12:00:00 AM EDT active Enmanuel ALVARES ([facility], ) 4 mg 01/23/2020 12:00:00 AM EDT [...] DAY WI TH FOOD NEEDED SOLD: 06/29/2019 [facility] 100 mg 05/17/2019 12:00:00 AM [...] ONE CAPSULE BY MOUTH TWICE A DAY [facility] FOOD NEEDED SOLD: 09/26/2019 [facility] 100 mg 05/17/2019 12:00:00 AM EST capsule 60 TAKE ONE CAPSULE BY MOUTH TWICE A DAY WITH FOOD NEEDED TAKE ONE CAPSULE BY MOUTH TWICE A DAY [facility] FOOD NEEDED SOLD: 08/15/2019 [facility] 100 mg 05/17/2019 12:00:00 AM EST capsule 60 TAKE ONE CAPSULE BY MOUTH TWICE A DAY WITH FOOD NEEDED TAKE ONE CAPSULE BY MOUTH TWICE A DAY [facility] FOOD NEEDED SOLD: 05/26/2019 [facility] [...] type / Coverage type Policy ID Covered libertarian ID Covered libertarian's relationship to scherer Policy Scherer Plan Information [facility] [id number] SP [id number] [facility] [id number] S [id number] [facility] [id number] S [id number] [facility] [id number] S [id number] ABDIFATAH [id number] [facility] [id number] S [id number] [facility] [id number] S [id number] ANSI-Commercial [id number] ANSI-Commercial [id number] ANSI-Commercial [id number] ANSI-Commercial [id number] ANSI-Commercial [id number] ANSI-Commercial [id number] ANSI-Commercial [id number] ANSI-Commercial [id number] ANSI-Commercial [id number] ANSI-Commercial [id number] ANSI-Commercial [id number] ANSI-Commercial [id number] ANSI-Commercial [id number] ANSI-Commercial [id number] ANSI-Commercial [id number] [place] [facility] [place] Medicaid [id number] Self [id number] ABDIFATAH CARE MD O [id number] S [id number] ABDIFATAH [id number] SP [id number] Abdifatah Care [place] Medicaid [id number] Self [id number] ABDIFATAH MEDICAID [id number] Jocelyn 7 [id number] ABDIFATAH RECURRING [id number] 18 [id number] ABDIFATAH CARE [id number] S [id number] ABDIFATAH [id number] 18 [id number] ABDIFATAH -I/P [id number] 18 [id number] [facility] RE[facility]ERR[facility] [id number] 18 [id number] [employer] [id number] S [id number] [employer] [id number] S [id number] BL[employer]OSS [facility] -O/P [id number] 18 [id number] [employer] [id number] S [id number] [facility] [id number] 18 [id number] [facility] [id number] 18 [id number] [facility] [id number] [facility] -[facility] [id number] Problems, Conditions, and Diagnoses Code Display Name Description Problem Type Effective Dates Data Source(s) M79.5 Residual foreign body in soft tissue RESIDUAL FO REIGN BODY IN SOFT TISSUE Diagnosis 04/24/2020 06:55:00 AM [facility] G57.62 Lesion of plantar nerve, left lower limb LESION OF PLANTAR NERVE, LEFT LOWER LIMB Diagnosis 04/24/2020 06:55:00 AM [facility] Z90.49 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 ACQUIRED ABSENCE OF OTHER SPECIFIED PARTS OF DIGES Diagnosis 09/04/2019 02:44:0 0 PM [facility] K76.0 Fatty (change of) liver, not elsewhere c lassified FATTY (CHANGE OF) LIVER, NOT ELSEWHERE CLASSIFIED Diagnosis 09/04/2019 02:44:00 PM [facility] R10.32 Left lower quadrant pain LEFT LOWER QUADRANT PAIN Diag nosis 09/04/2019 02:44:00 PM [facility] R10.31 Right lower quadrant pain RIGHT LOWER QUADRANT PAIN Di agnosis 09/04/2019 02:44:00 PM [facility] Z12.31 Encounter for screening mammogram for ma lignant neoplasm of breast ENCNTR SCREEN MAMMOGRAM FOR MALIGNANT NEOPLASM OF BREAST Diagnosis 01:59:00 PM [facility] K57.32 Diverticulitis of large inte hang without perforation or abscess without bleeding DVTRCLI OF LG INT W/O PERFORATION OR ABSCESS W/O B Diagnosis 04/08/2019 04:56:00 PM [facility] K57.92 Diverticulitis of intestine, part unspecified, without perforation or abscess without bleeding DVTRCLI OF INTEST, PART UNSP, W/O PERF O R ABSCESS W/O BLEED Diagnosis 04/08/2019 04:56:00 PM EST [facility] Surgeries/Procedures Procedure Description Date Indications Data Source(s) REMOVAL FOREIGN BODY FOOT DEEP 04/24/2020 12:00:00 AM [facility] EXCISION INTERDIGITAL TERAN NEUROMA SINGLE EACH 04/24 12:00:00 AM [facility] LEVEL IV SURG PATHOLOGY GROSS&MICROSCOPIC EXAM TISSUE EXAM B Y PATHOLOGIST 04/24/2020 12:00:00 AM [facility] Unclassified drugs 04/24/2020 12:00:00 AM [facility] Injection, propofol, 10 mg 04/24/2020 12:00:00 AM [facility] Injection, fentanyl citrate, 0.1 mg 04/24/2020 12:00:0 0 AM [facility] Injection, midazolam hydrochloride, per 1 mg 12:00:00 AM [facility] Injection, dexamethasone sodium phosphate, 1mg 021 12:00:00 AM [facility] Injection, cefazolin sodium, 500 mg 04/24/2020 12:00:0 0 AM [facility] Extirpation of Matter from Left Foot Sub cutaneous Tissue and Fascia, Open Approach EXTIRPATE OF MATTER FROM L FOOT SUBCU/FASCIA, OPEN ZINA DAO 04/24/2020 12:00:00 AM [facility] Excision of Tibial Nerve, Open Approach EXCISION OF TIBIAL N ERVE, OPEN APPROACH 04/24/2020 12:00:00 AM [facility] Hemorrhoidectomy, By Simple Ligature 01/24/2020 12:00: 00 AM EDHermilo LACY ([facility]) RADEX ANKLE COMPLETE MINIMUM 3 VIEWS 08/04/2019 12:00: 00 AM [facility] EMERGENCY DEPARTMENT VISIT MODERATE SEVERITY 0 12:00:00 AM [facility] [address] SCR MAMMO BI INCL CAD 04/27/2019 12:00:00 AM [facility] Introduction of Other Anti-infective int o Peripheral Vein, Percutaneous Approach 04/08/2019 12:00:00 AM EST [facility] Results ID Date Data Source [id number] 06/01/2020 09:00:00 AM EST VINV Name Value Range Interpretation Code Description Data Kenia rce(s) Supporting Document(s) SARS coronavirus 2 RNA Not Detected [facility] This lab was ordered by [facility] and reported by [facility]. ID Date Data Source [id number] 04/24/2020 05:05:00 PM [facility] Name: LESLEE GRAHAM : 1960 Age/Sex: 60F Attending Physician: Dahiana Hwang [facility] Rec #: [id number] Admission Date: Room #: Admitting Physician: Report Number: [id number] _ cc: Avinash Cartagena MD Send Report [...] was removed from bone using the needle parts delivery driver. The area was copiously lavaged. The [...] rce(s) Supporting Document(s) ID Date Data Source [id number] 04/30/2020 09:49:00 AM EST [facility] Imaging Services Department Imaging Report [address] [address] %(RAD)RES..mtdd.print.filter("line") Name: LESLEE GRAHAM James : 1960 Age/Sex: 60F Ordering Provider: RIANA Martinez Med Rec #: [id number] Reg Status: DEP REF Room #: Date of Service: 04/29/20 Report Number: [id number] cc: Send Report To: [id number] BD/Bone Densitometry Reason for exam: SCREENING [id number]Uu7CMRP2PDBCOZTjfb0YKXHPIVTQB2IXzs3h1RXBCZYmEV6G GQObffg4CDAXZREDiZuGkoVEApFCNW1NUoxthNBKGJZ0CKHUPHxk6s0abPuDkTkD1hI+6A/oL8vuk6Wr xdvzR0YZlnt3UtkCwjwsxco4Cc5Jw4337+PrNcfP WKlrPb6t99phble2qmCueQtscWzDUdXNqi8gv1CMJAhUPsWmii0Oj7QPQG6GWpNpCLhWksZgqYBMwuTB QwICpTyNTfidBqye5u8g7e8sYonhMZ8qUoWIH0pru8zEG4/6CW7TPqVbJQyVNcPO0Vsjtr4nis5HTvTf 6DTXihKPTSvLJlH7PdQv2TEJnkCLmzDtNWh1NWgZjW BVKo2dxzZQR6v+qPIjNSoRFnSr10TKq1XnLIcUIrHXvSSe+6cD/xTuPXov/JOj/4Ji3m970mQdQOBPrN YgKAb8Jf5S40449t5q9/f/EdimoU3qe8OrAVjP7O3dD1vKYnX+dCed33HCDdmwzNk7+lEVCL4HI/4E5A Fbtrfnm3VDT71o522ChjHMCMx2cd6BF5Q8CUq94O6F 7Zdtl0o1HBb8WXWdIG8QsvdwV5/BtGkyIQ0x4/ggCPm8B8m2mAF44GWwTA/4UEaaFm++DCWIu17W4nPD 3/yaNDf6si2F26oB5AonVFcLvwmY29vYlIJvWPuHUmIC2U2pWvh+7ff/K+g52bO+cE2Ix7w1E1qqx6Hv Z1D+pUwJ2SaAz7lEMd/cgmX6+62fw/QSW2SxDwGaC7 oPN62Xhq+/TX/B8k9+ZEUJMmGcgp7cAhyKkX+ufxpQntgNMSvoihixUpwiXBt8r6qN84G/wmaVz0yevC Cpxk+ajeUSOxXEUC5RXIs3fCtM/g9A3xM/gzhTe2mJzSF7mHbRtezEglC+iGTjldyRel3nNMi8TAFSPK aBNN/5QKEUJ1F0OIEZnOFSXUfL+y8344Nhl/93GJDA rTWsm/QpsRamVUb25I79gIhShNSkZ+assistant executive housekeeper+uaXPI7fWgqEyW+hpb5iHvRPLaH1/iNKJnJdaXmh9dICoBL [file] QqHoKNjpX/WZsJ5EdKLAfZBBcJThIPxOubrvsJ+call center professional gYNrLwG2TjK5HSXCOPpdHXqFRBxHCaXOsTjxpINbqKwk0nSwO1Mu2Bhdapz9+etcLJw9/3zvV0lx6y+4 VthsWgnA7bRmU/uv9vv3Qt9YTyyHCbFcCk9bURmKG+bvuEljIT2+AUk7MLVSSMggBk0A0hU29zqyT9Hu i45276DAnaL95q6c0wD6zg75uWrjEm6P2x9Hypg0Tn [file] Dee [file] KBQKhULRGWhJ+c5vjRvT/OEIfOx/+group home/evnuxuah2ag9Q+8Bv/y5hnxqo/8EZwY+tcc/qf3/w/w3Pcv [file] gJI+sQTiCBvPue9GxH6/QDrtMgdQ160LFHWXRBBNJY6HNWM= To view Bone Density report in Synapse, please see the Documents tab. Report is in PDF folder. REPORT SIGNATURE ON FILE Reported By: Arias Chan MD <Electronically signed by Yasemin Chan MD> 04/30/20 1050 Dictation Date/Time: 04/29/20 1200 Transcribed Date/Time: 04/30/20 0949 Agriscience Instructor: LISETTE Name Value Range Interpretation Code Description Data Kenia rce(s) Supporting Document(s) ID Date Data Source [id number] 04/29/2020 04:12:00 PM [facility] Imaging Services Department Imaging Report [address] [place], [place] [address] Name: LESLEE GRAHAM : 1960 Age/Sex: 60F Ordering Provider: RIANA Martinez Med Rec #: [id number] Date of Service: 04/29/20 Report Number: [id number] cc: RIANA Martinez; Avinash Cartagena MD Send Report To: [id number] MAMMOSCR/Screening [facility] w Theron CAD Reason for Exam: [...] Date/Time: 04/29/20 1224 Transcribed Date/Time: 04/29/20 1612 Agriscience Instructor: MELIZA Name Value Range Interpretation Code Description Data [facility] rce(s) Supporting Document(s) ID Date Data Source [id number] 04/25/2020 02:24:00 PM [facility] Name Value Range Interpretation Code Description Data [facility] rce(s) Supporting Document(s) ID Date Data Source [id number] 04/24/2020 10:57:00 AM [facility] Hospital Name: LESLEE GRAHAM : 1960 Age/Sex: 60F Ordering Provider: Dahiana Hwang DPM [facility] Rec #: [id number] Reg Status: [facility] Room #: Date of Service: 04/24/20 Report Number: [id number] cc: Send Report To: [id number] XRP/XR C-Arm No Charge Reason for exam: [...] Hwang DPM 04/24/20 1057 Dictation Date/Time: 04/24/20 2857 Transcribed Date/Time: 04/24/20 1057 Agriscience Instructor: LISETTE Name Value Range Interpretation Code Description Data Kenia rce(s) Supporting Document(s) ID Date Data Source [id number] 04/19/2020 08:27:00 PM EST [facility] Name Value Range Interpretation Code Description Data Kenia rce(s) Supporting Document(s) Respiratory specimen severe acute respir atory syndrome coronavirus 2 (SARS-CoV-2) RNA Negative (qualifier value) [facility] This lab was ordered by [facility] and reported by . ID Date Data Source [id number] 04/19/2020 08:26:00 PM [facility] Name Value Range Interpretation Code Description Data Kenia rce(s) Supporting Document(s) SARS-CoV-2 RNA INHOUSE Negative Normal (applies to non-n umeric results) [facility] THIS IS A [facility] REPORTABLE COMMUNICABLE DISEASE. Testing was performed using the Sean[employer] COVID-19 MDx Assay. This test has been [...] be found at the following links: Providers: https://www.fda.gov/media/723795/download Patients : https://www.fda.gov/media/995998/download THIS IS A [facility] REPORTABLE COMMUNICABLE DISEASE Negative results do not preclude SARS-CoV-2 infection and should not be used as the sole basis for patient management decisions. Negative results must be combined with clinical observations,patient history, and epidemiological information. ID Date Data Source [id number] 04/17/2020 06:52:00 AM [facility] Imaging Services Department Imaging Report [address] [place] [address] %(RAD)RES..mtdd.print.filter("line") Name: LESLEE GRAHAM : 1960 Age/Sex: 59F Ordering Provider: Dahiana Hwang DPM Med Rec #: [id number] Reg Status: DEP REF Room #: Date of Service: 04/16/20 Report Number: [id number] cc:Dahiana Hwang DPM; Avinash Cartagena MD Send Report To: [id number] XRP/XR Foot Lt Min. 3 Views Reason [...] Date/Time: 04/16/20 1526 Transcribed Date/Time: 04/17/20 0652 Agriscience Instructor: FOREIGN Name Value Range Interpretation Code Description Data Kenia rce(s) Supporting Document(s) ID Date Data Source [id number] 03/11/2020 11:59:00 PM EST [facility] Name Value Range Interpretation Code Description Data Kenia rce(s) Supporting Document(s) Sodium 140 mmol/L 136-145 Normal (applies to non-numeric resul ts) [facility] Potassium 3.5-5.1 Normal (applies to non-numeric resul ts) [facility] Chloride 103 mmol/L 98-107 Normal (applies to non-numeric resul ts) [facility] Carbon Dioxide CO2 21-32 Normal (applies to non-numer ic results) [facility] Anion Gap 5.0-16.0 Normal (applies to non-numeric resul ts) [facility] BUN 25 mg/dL 7-18 Above high normal [facility] Creatinine,Serum 0.7-1.2 Normal (applies to non-numeric results) [facility] GFR >60 Normal (applies to non-numeric results) [facility] Glucose Level 120 mg/dL 60-99 Above high normal [facility] Reference range is only applicable when patient is fasting Note the following drug interference: Sulfasalazine Sulfapyridine Can see falsely depressed Can see falsely elevated result with up to 17% results with up to 11% decrease in measurement increase in measurement Recommend patients be collected for this test prior to administration of either drug. Calcium 8.5-10.1 Normal (applies to non-numeric resul ts) [facility] Bilirubin,Total 0.1-1.9 Normal (applies to non-numeric results) [facility] SGOT(AST) 14 U/L 15-37 Below low normal [facility] Note the following drug interference: Sulfasalazine Sulfapyridine Can see falsely depressed Can see falsely elevated result with up to 10% results with up to 10% decrease in measurement increase in measurement Recommend patients be collected for this test prior to administration of either drug. SGPT(ALT) 17 U/L 12-78 Normal (applies to non-numeric resul ts) [facility] Note the following drug interference: Sulfasalazine Sulfapyridine Can see falsely depressed Can see falsely elevated result with up to 29% results with up to 10% decrease in measurement increase in measurement Recommend patients be collected for this test prior to administration of either drug. Alkaline Phosphatase 76 U/L 38-126 Normal (applies to non-num russell results) [facility] can increase Alkaline Phosp le vels up to 2 times the normal adult value. Normal values for children and adolescents are 2 to 3 times the normal adult value. Total Protein 6.0-8.2 Normal (applies to non-numeric re sults) [facility] Albumin Level 3.4-5.0 Normal (applies to non-numeric re sults) [facility] ID Date Data Source [id number] 03/11/2020 11:59:00 PM EST [facility] Name Value Range Interpretation Code Description Data Kenia rce(s) Supporting Document(s) Amylase 169 U/L 25-115 Above high normal [facility] ospital ID Date Data Source [id number] 03/11/2020 11:59:00 PM EST [facility] Name Value Range Interpretation Code Description Data Kenia rce(s) Supporting Document(s) Lipase 339 U/L 73-393 Normal (applies to non-numeric resul ts) [facility] ID Date Data Source [id number] 03/11/2020 11:41:00 PM EST [facility] Name Value Range Interpretation Code Description Data Kenia rce(s) Supporting Document(s) White Blood Count 3.5-10.5 Above high normal [facility] Red Blood Count 3.90-5.00 Normal (applies to non-numeric results) [facility] Hemoglobin 12.0-15.5 Normal (applies to non-numeric resul ts) [facility] Hematocrit 34.9-44.5 Normal (applies to non-numeric resul ts) [facility] Mean Corpuscular Volume 81.2-95.1 Normal (applies to non- numeric results) [facility] Mean Corpuscular Hgb 25.6-32.2 Normal (applies to non-num russell results) [facility] Mean Corpuscular Hgb Conc 32.0-36.0 Normal (applies to no n-numeric results) [facility] Red Cell Distribution Width 11.9-15.5 Normal (appli es to non-numeric results) [facility] Platelet Count 231 x10 3/uL 150-450 Normal (applies to non-numeric results) [facility] Mean Platelet Volume 9.4-12.4 Below low normal [facility] Neutrophils% (Auto) 31.0-71.0 Above high normal [facility] Lymphocytes% (Auto) 20.0-55.0 Below low normal [facility] Monocytes% (Auto) 4.0-12.0 Normal (applies to non-numeri c results) [facility] Eosinophils% (Auto) 1.0-8.0 Normal (applies to non-nume manuel results) [facility] Basophils% (Auto) 0.0-2.0 Normal (applies to non-numeri c results) [facility] Immature Granulocytes% (Auto) 0.0-2.0 Normal (zina lies to non-numeric results) [facility] Neutrophils# (Auto) 1.50-6.20 Above high normal [facility] Lymphocytes# (Auto) 1.20-4.00 Normal (applies to non-nume manuel results) [facility] Monocytes# (Auto) 0.00-0.90 Normal (applies to non-numeri c results) [facility] Eosinophils# (Auto) 0.00-0.50 Normal (applies to non-nume manuel results) [facility] Basophils# (Auto) 0.00-0.20 Normal (applies to non-numeri c results) [facility] Immature Granulocytes# (Auto) 0.00-7.00 No rmal (applies to non-numeric results) [facility] ID Date Data Source [id number] 03/12/2020 12:04:00 AM EST [facility] Imaging Services Department Imaging Report [address] [place] [address] %(RAD)RES..mtdd.print.filter("line") Name: LESLEE GRAHAM : 1960 Age/Sex: 59F Ordering Provider: Lew Mckeon NP Med Rec #: [id number] Reg Status: REG ER Room #: Date of Service: 03/11/20 Report Number: [id number] cc:Lew Mckeon NP; Avinash Cartagena MD Send [...] 03/12/203 Dictation Date/Time: 03/12/203 Transcribed Date/Time: 03/12/203 Agriscience Instructor: Name Value Range Interpretation Code Description Data Kenia rce(s) Supporting Document(s) ID Date Data Source [id number] 03/11/2020 11:09:00 PM [facility] Collected By: Nurse Initials: cs Time Collected: 2254 Collected By: Nurse Initials: cs Time Collected: 2254 Name Value Range Interpretation Code Description Data Kenia rce(s) Supporting Document(s) Color,Urine Colorl-Dk Y Normal (applies to non-numeric res ults) [facility] Clarity,Urine Clear Normal (applies to non-numeric re sults) [facility] Specific Freer,Urine 1.005-1.030 Normal (applies to non- numeric results) [facility] pH,Urine 5.0-8.0 Normal (applies to non-numeric resul ts) [facility]rine [facility] Glucose,Urine Negative Normal (applies to non-numeric re sults) [facility] Ketones,Urine Negative Normal (applies to non-numeric re sults) [facility] Blood,Urine Negative Normal (applies to non-numeric resu lts) [facility] Bilirubin,Urine Negative Normal (applies to non-numeric results) [facility] Urobilinogen,Urine 0.2-1.0 Normal (applies to non-numer ic results) [facility] Leukocyte Esterase,Urine Negative Normal (applies to non -numeric results) [facility] Nitrite,Urine Negative Normal (applies to non-numeric re sults) [facility] ID Date Data Source [id number] 03/11/2020 11:09:00 PM [facility] Collected By: Nurse Initials: cs Time Collected: 2254 Collected By: Nurse Initials: cs Time Collected: 2254 Name Value Range Interpretation Code Description Data Kenia rce(s) Supporting Document(s) RBC,Urine None Seen [facility] WBC,Urine None Seen [facility] Casts,Urine None Seen Normal (applies to non-numeric resu lts) [facility] Epithelial Cells,Urine None - Few Normal (applies to non-n umeric results) [facility] Squamous Cells,Urine None Seen [facility] Bacteria,Urine None Seen [facility] ital Mucus,Urine None [facility] ID Date Data Source [id number] 03/11/2020 11:02:00 PM [facility] Collected By: Nurse Initials: cs Time Collected: 2254 Name Value Range Interpretation Code Description Data Kenia rce(s) Supporting Document(s) Color,Urine Colorl-Dk Y Normal (applies to non-numeric res ults) [facility] Clarity,Urine Clear Normal (applies to non-numeric re sults) [facility] Specific Freer,Urine 1.005-1.030 Normal (applies to non- numeric results) [facility] pH,Urine 5.0-8.0 Normal (applies to non-numeric resul ts) [facility] Protein,Urine Negative [facility] Glucose,Urine Negative Normal (applies to non-numeric re sults) [facility] Ketones,Urine Negative Normal (applies to non-numeric re sults) [facility] Blood,Urine Negative Normal (applies to non-numeric resu lts) [facility] Bilirubin,Urine Negative Normal (applies to non-numeric results) [facility] Urobilinogen,Urine 0.2-1.0 Normal (applies to non-numer ic results) [facility] Leukocyte Esterase,Urine Negative Normal (applies to non -numeric results) [facility] Nitrite,Urine Negative Normal (applies to non-numeric re sults) [facility] ID Date Data Source [id number] 03/09/2020 09:30:00 AM EST [facility] Name Value Range Interpretation Code Description Data Kenia rce(s) Supporting Document(s) SARS coronavirus 2 RNA [facility] This lab was ordered by [facility] and reported by [facility]. ID Date Data Source [id number] 12/09/2019 12:15:00 PM EDT [facility] Imaging Services Department Imaging Report [address] [place] [address] %(RAD)RES..mtdd.print.filter("line") Name: LESLEE GRAHAM : 1960 Age/Sex: 59F Ordering Provider: MATILDA Woodson Med Rec #: [id number] Reg Status: [facility] Room #: Date of Service: 12/07/19 Report Number: [id number] cc:Avinash Cartagena MD Send Report To: [id number] CT/CT Head No Contrast Reason for exam: [...] Date/Time: 12/08/19 1026 Transcribed Date/Time: 12/09/19 1215 Agriscience Instructor: JAN Name Value Range Interpretation Code Description Data Kenia rce(s) Supporting Document(s) ID Date Data Source [id number] 11/03/2019 08:56:00 AM EDT [facility] Imaging Services Department Imaging Report [address] [place] [address] %(RAD)RES..mtdd.print.filter("line") Name: LESLEE GRAHAM : 1960 Age/Sex: 59F Ordering Provider: Michelle Last MD Med Rec #: [id number] Reg Status: [facility] REF Room #: Date of Service: 11/02/19 Report Number: [id number] cc:Michelle Last MD; Avinash Cartagena MD Send Report To: [id number] XRP/XR L Spine Complete Reason for exam: [...] ARIAS GILES, REVIEWED AND SIGNED BY DR. QUEZAAD. Time portable performed: Fluoroscopy time in seconds: Number of Exposures: Contrast Agent in ml: Method of Administration: REPORT SIGNATURE ON FILE Reported By: Emmanuel Quezada MD <Electronically signed by Emmanuel Quezada MD> 11/03/19 1126 Dictation Date/Time: 11/02/19 1652 Transcribed Date/Time: 11/03/19 0856 Agriscience Instructor: LISETTE Name Value Range Interpretation Code Description Data Kenia rce(s) Supporting Document(s) ID Date Data Source [id number] 10/28/2019 09:32:00 AM EDT [facility] Name Value Range Interpretation Code Description Data Kenia rce(s) Supporting Document(s) Triglycerides 43 mg/dL <150 Normal (applies to non-numeric re sults) [facility] Cholesterol 166 mg/dL 100-200 Normal (applies to non-numeric resu lts) [facility] LDL Cholesterol Calculated 90 0-130 Normal (applies to n on-numeric results) [facility] HDL Cholesterol 67 mg/dL 40-60 Above high normal [facility] Cholesterol/HDL Ratio 3.6-6.7 Below low normal [facility] ID Date Data Source [id number] 09/04/2019 04:39:00 PM EDT [facility] Exam Number: [id number] OF EXAMINATIO N: 09/04/2019 16:15 EDTCT ABD&PEL [...] rce(s) Supporting Document(s) ID Date Data Source [id number] 09/04/2019 03:47:00 PM EDT [facility] Name Value Range Interpretation Code Description Data Kenia rce(s) Supporting Document(s) GLU 112 mg/dL 70-110 [facility] Patients taking Sulfasalazine may have f alsely depressedGlucose levels. Patients taking Sulfapyridine may havefalsely elevated Glucose levels. Patients should be drawnfor Glucose before the initial administration of eitherdrug. BUN 23 mg/dL 7-23 [facility] CRE 0.797 mg/dL 0.500-1.300 [facility] GFR > 60 mL/min [facility] CHLORIDE 110 mmol/L 99-110 [facility] NA 144 mmol/L 136-147 [facility] POTASSIUM 3.9 mmol/L 3.5-5.1 [facility] TCO2 28 mmol/L 20-33 [facility] ANION GAP 9.9 10.0-20.0 [facility] CA 8.7 mg/dL 8.3-10.7 [facility] ALKALINE PHOS 63 U/L 45-117 [facility] TP 6.6 g/dL 6.0-7.8 [facility] ALB 3.6 g/dL 3.5-5.0 [facility] ESRD Dialysis patient Albumin reference range: 2.9-4.4 g/dL GL 3.0 g/dL 2.3-3.5 [facility] A/G 1.2 1.0-2.5 [facility] T. BILIRUBIN 0.4 mg/dL 0.1-1.1 [facility] Total Bilirubin is n ot recommended forpatients undergoing treatment with eltrombopag (Promacta)due to the potential for falsely elevated results. ALTI 18 U/L 6-54 [facility] Patients taking Sulfasalazine and/or Sul fapyridine may havefalsely depressed ALT levels. Patients should be drawn forALT before the initial administration of either drug. AST 21 U/L 6-38 [facility] Patients taking Sulfasalazine and/or Sul fapyridine may havefalsely depressed AST levels. Patients should be drawn forAST before the initial administration of either drug. ID Date Data Source [id number] 09/04/2019 03:26:00 PM EDT [facility] Name Value Range Interpretation Code Description Data Kenia rce(s) Supporting Document(s) WBC 8.61 x10E3/uL 4.0-10.5 [facility] RBC 4.08 x10E6/uL 4.20-5.40 [facility] Hemoglobin 12.7 g/dL 12.0-16.0 [facility] Hematocrit 37.6 % 37.0-47.0 [facility] MCV 92.2 fL 81.0-99.0 [facility] MCH 31.1 pg 27.0-31.0 [facility] MCHC 33.8 g/dL 32.7-35.6 [facility] RDW 13.4 % 11.5-14.0 [facility] Platelet count 225 x10E3/uL 150-450 N [facility] MPV 9.3 fl 6.9-9.5 [facility] Neutrophils 71.0 % 34-64 [facility] Lymphocytes 19.6 % 25-45 [facility] Monocytes 6.7 % 1.7-10.6 [facility] Eosinophils 1.9 % 0.4-7.0 [facility] Basophils 0.6 % 0.1-2.0 [facility] Imm. Gran. 0.2 % 0.1-2.0 [facility] Abs. Neutro. 6.1 x10E3/uL 1.2-7.6 [facility] Abs. Lymph. 1.7 x10E3/uL 1.0-3.5 [facility] Abs. [place]. 0.6 x10E3/uL 0.1-1.0 [facility] Abs. Eosin. 0.2 x10E3/uL 0.1-0.7 [facility]. Baso. 0.1 x10E3/uL 0.0-0.1 [facility] Abs. Imm. Gran. 0.0 x10E3/uL 0.0-0.1 [facility] pital ANRBC% 0 % 0 [facility] ID Date Data Source [id number] 09/04/2019 03:06:00 PM EDT [facility] Name Value Range Interpretation Code Description Data Kenia rce(s) Supporting Document(s) URINE COLOR Yellow [facility] UAPR Clear [facility] UGLU Negative NEGATIVE [facility] URINE BILIRUBIN Negative NEGATIVE [facility] UKET Negative NEGATIVE [facility] USG 1.026 1.010-1.025 [facility] UBLO Negative NEGATIVE [facility] UpH 7.5 5.0-8.0 [facility] UPRO Negative Negative [facility] UUB 0.2 mg/dL 0.2-1.0 [facility] UNIT Negative Negative [facility] ULEU Negative Negative [facility] ID Date Data Source [id number] 09/04/2019 06:24:00 PM EDT [facility] terName: Leslee ClementAge: 59 yrsSex: FemaleDOB: 1960MRN: [id number] Date: 09/04/2019Time: 14:44Account#: [id number] 6APrezio MD:Diagnosis: Abdominal pain, unsepcified-.....PRESUMED EARLY DIVERTICULITISPresentation:08/2513:47 Presenting complaint: Patient states: i think my diverticulitis is zh3boxpqj up again i m having lower abdominal pain and pressure sincethis morning it went away and came back. i've had it quite a bit overthe last few years. Coronavirus Screening: Patient negative for feverand symptoms of lower respiratory illness (e.g., cough, difficultybreathing). Patient denies exposure to infectious person. Patientdenies travel to [place] or affected areas in the 14 days beforeillness onset. Communicable Disease Screen: Negative for fever>/= 100degrees Fahrenheit. Communicable disease screen is negative.14:47 Acuity: Triage 3 wd114:47 Method Of Arrival: Private Vehicle wd114:48 Acuity Assignment: Triage 3 lk7Dehbuu Assessment:14:50 General: Appears in no apparent distress, Behavior is cooperative. kh4Yneytj Screening: (1)Signs/symptoms infection No. 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 atorvastatin [...] Denies threats or abuse. Nutritional screening: No cq3fdooajcd noted. Offer of HIV testing: patient was [...] Temp 97.6(O); Pulse Ox 98% on R/A; ag9Esrt 4/10;ED Course:14:44 Patient arrived in ED. wd114:48 Triage completed. wd115:09 Julee Dodd, RN is Primary Nurse. sd215:22 Patient has correct armband on for positive identification. Placed in ab0xuuy. Bed in low position. Call light in reach. Side rails up X 1.Verbal reassurance given. Warm blanket given. Pillow given. Head ofbed Elevated.15:22 Labs drawn. (by ED staff). Urine collected. Clean catch specimen. dh0Mvbawb attempts: 20 gauge X 1 in left forearm, Bleeding controlled,band aid applied, catheter tip intact. Inserted saline lock: 20 gaugein left forearm and blood collected.17:[address] sd217:27 Fasutina Mata MD is Attending Physician. fcn18:07 Assisted to bathroom. sd218:16 No Physician assisted procedures completed. Discontinued lock intact, wf5hbauxrdb controlled, pressure dressing applied, No redness/swellingat site.Administered Medications:15:24 Drug: NS 0.9% 1000 ml [sodium chloride 0.9 % intravenous solution] pz3Xkfzn: IV; Rate: bolus; Site: left forearm;18:02 Follow up: IV Status: Completed infusion; IV converted to saline fbglock; IV Intake: 2141rr72:17 Drug: Ondansetron 8 mg [ondansetron HCl 2 mg/mL intravenous solution sd2(4 mL)] Route: IVP; Infused Over: 2 mins; Site: left forearm;18:24 Follow up: Response: Medication administered at discharge. sd218:17 Drug: Ciprofloxacin 500 mg [ciprofloxacin 250 mg tablet (2 tabs)] cc1Skzkx: PO;18:23 Follow up: Response: Medication administered at discharge. kt1Eupqwu:18:02 IV: 1000ml; Total: 1000ml. fbgOutcome:18:07 Discharge ordered by . fcn18:16 Disposition: Discharged to home ambulatory. sd218:16 Condition: stable, Condition: :16 Discharge instructions given to patient, Instructed on dischargeinstructions, follow up and referral plans. medication usage,Prescriptions given X 1.18:16 Discharge Assessment: Patient verbalized understanding of dispositioninstructions. Patient has no functional deficits.18:24 Patient left the ED. vh4Ezxjwsqfpr:Faustina Mata MD MD fcnGilTani murphy, RN RN fbgDow, Jessica, RN RN uj8FzjcdqheJulee munoz RN RN sd2 Name Value Range Interpretation Code Description Data Kenia rce(s) Supporting Document(s) ID Date Data Source [id number] 09/04/2019 06:24:00 PM EDT [facility] Physician DocumentationClaxbisi-Sanjay Singer edical CenterName: Leslee ClementAge: 59 yrsSex: FemaleDOB: 1960MRN: [id number] Date: 09/04/2019Time: 14:44Account#: [id number] 6APrivate MD:ED Physician Derek MataoDisposition Summary:09/04/19 18:07Discharge [...] ago......She doesn't want to get worse......came here rightaway.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 atorvastatin [...] Temp 97.6(O); Pulse Ox 98% on R/A; nn3Qlmb 4/10;MDM:17:27 Patient medically screened. fcn21:31 Data reviewed: vital signs, nurses notes. 4:55 Order name: CBC with diff; Complete Time: :55 Order name: CMP; Complete Time: :55 Order name: UA; Complete Time: :6:15 Order name: CT Abdomen and Pelvis - without IV or oral; Complete is2Rjft: ::55 Order name: NPO; Complete Time: ::55 Order name: Saline Lock; Complete Time: :55 Order name: Vital Signs per policy; Complete Time: : yv0Vvruymfbv Medications:15:24 Drug: NS 0.9% 1000 ml [sodium chloride 0.9 % intravenous solution] ls0Gkmqy: IV; Rate: bolus; Site: left forearm;18:02 Follow up: IV Status: Completed infusion; IV converted to saline fbglock; IV Intake: 8371oe57:17 Drug: Ondansetron 8 mg [ondansetron HCl 2 mg/mL intravenous solution sd2(4 mL)] Route: IVP; Infused Over: 2 mins; Site: left forearm;18:24 Follow up: Response: Medication administered at discharge. sd218:17 Drug: Ciprofloxacin 500 mg [ciprofloxacin 250 mg tablet (2 tabs)] cl0Oopgc: PO;18:23 Follow up: Response: Medication administered at discharge. mp0Fctofiqbin:Dispatcher [employer] Faustina Gustafson MD MD fcnDow, Wendy RN RN yo4SspsnjgrJulee bradley RN RN mj1QrbvdoaTani carrington RN fbg Name Value Range Interpretation Code Description Data Kenia rce(s) Supporting Document(s) ID Date Data Source [id number] 08/07/2019 10:49:00 AM EDT [facility] Imaging Report [address], [place] [address] %(RAD)RES..mtdd.print.filter("line") Name: LESLEE GRAHAM : 1960 Age/Sex: 59F Ordering Provider: MATILDA Cline Med Rec #: [id number] Reg Status: DEP ER Room #: Date of Service: 08/04/19 Report Number: [id number] cc:Avinash Cartagena MD Send Report To: [id number] XRP/XR Ankle Lt Min. 3 Views Reason [...] Date/Time: 08/07/19 1019 Transcribed Date/Time: 08/07/19 1049 Agriscience Instructor: LISETTE Name Value Range Interpretation Code Description Data Kenia rce(s) Supporting Document(s) ID Date Data Source [id number] 04/29/2019 05:59:00 AM EST [facility] Imaging Report [address], [place] [address] Name: LESLEE GRAHAM : 1960 Age/Sex: 59F Ordering Provider: RIANA Martinez Med Rec #: [id number] Date of Service: 04/27/19 Report Number: [id number] cc: Rosina Fried MD; RIANA Martinez Send Report To: [id number] MAMMOSCR/Screening Digital Mammo CAD Reason for Exam: [...] Date/Time: 04/28/19 1049 Transcribed Date/Time: 04/29/19 0559 Agriscience Instructor: LISETTE Name Value Range Interpretation Code Description Data Kenia rce(s) Supporting Document(s) ID Date Data Source [id number] 04/10/2019 12:52:00 PM EST [facility] [address] [id number] SUMMARYPATIENT NAME: LESLEE GRAHAM James MR#: [id number] PHYSICIAN: PORFIRIO BLANCHARD MDAUTHOR: Porfirio Blanchard MD DATE: 04/08/19 RM#: [id number] DATE: : [birth year]Summary of HospitalizationReason for AdmissionAbdominal painHospital Mcmhae17 yo F admitted to the medical floor [...] the oral antibiotic courseat home.Procedures & Relevant StudiesStudiesALBION, [place] [address]JMJEDTURHR CONSULTATIONDate of : 1960 Name: LESLEE GRAHAM RMedrec Number: [id number] Phys: FAUSTINA MATA MDExam Date: 04/08/2019 Location: ERProcedure: ABDPELW/O, CT ABD&PEL W/O IV OR ORA Rad Numb: [id number] \\EXAM# TYPE/EXAM [id number] CT/CT ABD&PEL W/O IV OR ORAL COATE [...] drainable collection/abscess.PAGE 1 Signed Report Printed From [facility], [place] [id number] CONSULTATIONDate of : 1960 Name: LESLEE GRAHAM edrec Number: [id number] Phys: FAUSTINA MATA MDExam Date: 04/08/2019 Location: ERProcedure: ABDPELW/O, CT ABD&PEL W/O IV OR ORA Rad Numb: [id number] Ph: \\EXAM# TYPE/EXAM [id number] CT/CT ABD&PEL W/O IV OR ORAL COElectronically signed in PS360 by: Ramin Melo M.D. 04/08/201915:43 EST Reported By: Ramin Leavitt M.D.OUR RADIOLOGY DEPARTMENT IS ACCREDITED BY THE [employer] IN THE FOLLOWING MODALITIES:CT, MRI, NUCLEAR MEDICINE, PET/CT,MAMMOGRAPHY /STEREOTACTIC BIOPSY, & ULTRASOUNDCC: ROSINA FRIED MDProcedure Start: 04/08/19 (1525) Procedure Complete: 04/08/19 (152)Technologist: Kalani TORO(R)(CT)Transcribed Date/Time: 04/08/2019 (1825)Agriscience Instructor: XPrinted Date/Time: 04/10/2019 (2844)PAGE 2 Signed Report Printed From PCIDiagnoses (Current [...] these medications:BLACK COHOSH (Black Cohosh) 40 MG [id number] MILLIGRAM Orally TWICE DAILYMULTIVITAMIN WITH MINERALS (Multiple Vitamin) 1 EACH TABLET1 Orally DAILYGabapentin* (Neurontin*) 400 MG [id number] MILLIGRAM Orally THREE TIMES DAILYONDANSETRON (Zofran*) 4 MG TABLET4 MILLIGRAM Orally As directed as needed for NauseaDOCUSATE SODIUM (COLACE) 100 MG [id number] MILLIGRAM Orally TWICE DAILYSENNA CONCENTRATE* (Senokot*) 8.6 MG TABLET1 TABLET Orally As directed as needed for BOWELSATORVASTATIN (LIPITOR) 10 MG SCZCEP90 MILLIGRAM Orally DAILYCELECOXIB (Celebrex*) 100 MG [id number] MILLIGRAM Orally TWICE A DAY WITH MEALS [...] rce(s) Supporting Document(s) ID Date Data Source [id number] 04/10/2019 12:50:[address] [id number] NAME: LESLEE GRAHAM#: [id number] PHYSICIAN: PORFIRIO BLANCHARD [facility] #: [id number] ADM. DATE: 04/08/19PATIENT : 60 DISCH. DATE: [...] HOMEDischarge InformationDISCHARGE INFORMATION* [facility] you [facility] and allowing us toserve you* Our Goal is to provide the highest quality of care.* This discharge information is to help you better understand your d iagnosisand medication* Avoid taking epsl-xnv-ttrlhya medicines unless approved by your physician.* Take your medications as prescribed. DO NOT stop any medications unlessapproved first* Weigh yourself daily. Report any gain of 5 lbs in a week* 24 Hour Crisis HOTLINE available: Call Reachout at [phone] SMOKING CESSATION* Smoking is dangerous to your health. It delays the healing process, andworks against your medications. Not smoking will improve your health* Our hospital participates with the Opt-to-Quit program. You will be contactedafter discharge by the [facility] Smoker's Quitline for support with tobaccocessation. You have the option once contacted to refuse this service.* You can also go online to www.51wan. Free nicotine replacementsare available ___Attention* You should contact your follow up Physician as it is important that you lethim or her check you and report any new or remaining problems. If yourcondition worsens, follow up with your provider or visit our EmergencyDepartment. If you received pain medication, anxiety medications, musclerelaxants, or any medication that causes drowsiness, you cannot operateSvpplyhiBusinessElitey, power tools, or drive.END ENDDICT: 04/10/19 1250 Electronically SignedTRANS:04/10/19 1250 PORFIRIO BLANCHARD MDTRANS BY:DATE SIGNED:04/10/19TIME SIGNED: 1251REPORT COPY TO: Name Value Range Interpretation Code Description Data Kenia rce(s) Supporting Document(s) ID Date Data Source [id number] 04/10/2019 05:59:00 AM EST [facility] Name Value Range Interpretation Code Description Data Kenia rce(s) Supporting Document(s) C-REACTIVE PROT 0.99 mg/dL 0.00-0.49 H [facility] ID Date Data Source [id number] 04/10/2019 05:42:00 AM EST [facility] Name Value Range Interpretation Code Description Data Kenia rce(s) Supporting Document(s) MAGNESIUM 1.8 mg/dL 1.6-2.6 [facility] Please note the reference range change for Magnesiumeffective 02/16/19 ID Date Data Source [id number] 04/10/2019 05:42:00 AM EST [facility] Name Value Range Interpretation Code Description Data Kenia rce(s) Supporting Document(s) RASHAUN 2.9 mg/dL 2.5-4.5 [facility] ID Date Data Source [id number] 04/10/2019 05:42:00 AM EST [facility] Name Value Range Interpretation Code Description Data Kenia rce(s) Supporting Document(s) GLU 65 mg/dL 70-110 [facility] Patients taking Sulfasalazine may have f alsely depressedGlucose levels. Patients taking Sulfapyridine may havefalsely elevated Glucose levels. Patients should be drawnfor Glucose before the initial administration of eitherdrug. BUN 7 mg/dL 7-23 [facility] CRE 0.553 mg/dL 0.500-1.300 [facility] GFR > 60 mL/min [facility] CHLORIDE 107 mmol/L 99-110 [facility] NA 143 mmol/L 136-147 [facility] POTASSIUM 4.2 mmol/L 3.5-5.1 [facility] TCO2 25 mmol/L 20-33 [facility] ANION GAP 15.2 10.0-20.0 [facility] CA 8.3 mg/dL 8.3-10.7 [facility] ID Date Data Source [id number] 04/10/2019 05:36:00 AM EST [facility] Name Value Range Interpretation Code Description Data Kenia rce(s) Supporting Document(s) WBC 7.14 x10E3/uL 4.0-10.5 [facility] RBC 4.23 x10E6/uL 4.20-5.40 [facility] Hemoglobin 12.7 g/dL 12.0-16.0 [facility] Hematocrit 39.2 % 37.0-47.0 [facility] MCV 92.7 fL 81.0-99.0 [facility] MCH 30.0 pg 27.0-31.0 [facility] MCHC 32.4 g/dL 32.7-35.6 [facility] RDW 13.0 % 11.5-14.0 [facility] Platelet count 273 x10E3/uL 150-450 [facility] ital MPV 9.1 fl 6.9-9.5 [facility] Neutrophils 62.1 % 34-64 [facility] Lymphocytes 24.6 % 25-45 [facility] Monocytes 9.1 % 1.7-10.6 [facility] Eosinophils 3.5 % 0.4-7.0 [facility] Basophils 0.6 % 0.1-2.0 [facility] Imm. Gran. 0.1 % 0.1-2.0 [facility] Abs. Neutro. 4.4 x10E3/uL 1.2-7.6 [facility] Abs. Lymph. 1.8 x10E3/uL 1.0-3.5 [facility] Abs. [place]. 0.7 x10E3/uL 0.1-1.0 [facility] Abs. Eosin. 0.3 x10E3/uL 0.1-0.7 [facility] Abs. Baso. 0.0 x10E3/uL 0.0-0.1 [facility] Abs. Imm. Gran. 0.0 x10E3/uL 0.0-0.1 [facility] pital ID Date Data Source [id number] 04/09/2019 08:29:00 AM [facility] [place], [place] [address]CTVSTYTQ NOTEPATIENT NAME: LESLEE GRAHAM PHYSICIAN: PORFIRIO BLANCHARD MDAUTHOR: Jerrod Blanchard MD. DATE: 04/08/19 MR#: [id number] NOTE DATE: 04/09/19 RM#: [id number] TIME: 08 [...] Ox 98 96 96 96O2 DeliveryO2 Flow WfngBxX8Gcguzj/OutputIntake/Output Summary 24 hours04/08 1900 04/09 0700Intake Total [...] IVSodium Chloride (SODIUM CHLORIDE 0.9%) 1,000 ML .P60I84G IVSodium Chloride (Saline Flush Syr(5ML)) 5 ML [...] DetectedVibrio sp DNA/RNA PCR (Not Detected) Not Mrefdlgq3604/09 0453ChemistrySodium (136 - 147 mmol/L) 145Potassium (3.5 [...] rce(s) Supporting Document(s) ID Date Data Source [id number] 04/09/2019 05:48:00 AM EST [facility] Name Value Range Interpretation Code Description Data Kenia rce(s) Supporting Document(s) C-REACTIVE PROT 1.04 mg/dL 0.00-0.49 H [facility] ID Date Data Source [id number] 04/09/2019 05:35:00 AM EST [facility] Name Value Range Interpretation Code Description Data Kenia rce(s) Supporting Document(s) MAGNESIUM 1.5 mg/dL 1.6-2.6 L [facility] Please note the reference range change for Magnesiumeffective 02/16/19 ID Date Data Source [id number] 04/09/2019 05:35:00 AM EST [facility] Name Value Range Interpretation Code Description Data Kenia rce(s) Supporting Document(s) RASHAUN 2.4 mg/dL 2.5-4.5 L [facility] ID Date Data Source [id number] 04/09/2019 05:35:00 AM EST [facility] Name Value Range Interpretation Code Description Data Kenia rce(s) Supporting Document(s) GLU 75 mg/dL 70-110 [facility] Patients taking Sulfasalazine may have f alsely depressedGlucose levels. Patients taking Sulfapyridine may havefalsely elevated Glucose levels. Patients should be drawnfor Glucose before the initial administration of eitherdrug. BUN 12 mg/dL 7-23 [facility] CRE 0.536 mg/dL 0.500-1.300 [facility] GFR > 60 mL/min [facility] CHLORIDE 110 mmol/L 99-110 [facility] NA 145 mmol/L 136-147 [facility] POTASSIUM 3.4 mmol/L 3.5-5.1 [facility] TCO2 25 mmol/L 20-33 [facility] ANION GAP 13.4 10.0-20.0 [facility] CA 8.0 mg/dL 8.3-10.7 [facility] ID Date Data Source [id number] 04/09/2019 05:21:00 AM EST [facility] Name Value Range Interpretation Code Description Data Kenia rce(s) Supporting Document(s) WBC 6.25 x10E3/uL 4.0-10.5 [facility] RBC 3.90 x10E6/uL 4.20-5.40 [facility] Hemoglobin 11.7 g/dL 12.0-16.0 [facility] Hematocrit 36.3 % 37.0-47.0 [facility] MCV 93.1 fL 81.0-99.0 [facility] MCH 30.0 pg 27.0-31.0 [facility] MCHC 32.2 g/dL 32.7-35.6 [facility] RDW 13.0 % 11.5-14.0 [facility] Platelet count 246 x10E3/uL 150-450 N [facility] ital MPV 8.9 fl 6.9-9.5 [facility] Neutrophils 55.4 % 34-64 N [facility] Lymphocytes 29.0 % 25-45 N [facility] Monocytes 10.7 % 1.7-10.6 H [facility] Eosinophils 4.2 % 0.4-7.0 N [facility] Basophils 0.5 % 0.1-2.0 N [facility] Imm. Gran. 0.2 % 0.1-2.0 N [facility] Abs. Neutro. 3.5 x10E3/uL 1.2-7.6 [facility] Abs. Lymph. 1.8 x10E3/uL 1.0-3.5 [facility] Abs. [place]. 0.7 x10E3/uL 0.1-1.0 N [facility] Abs. Eosin. 0.3 x10E3/uL 0.1-0.7 [facility] Abs. Baso. 0.0 x10E3/uL 0.0-0.1 N [facility] Abs. Imm. Gran. 0.0 x10E3/uL 0.0-0.1 N [facility] pital ID Date Data Source [id number] 04/08/2019 04:56:00 PM EST [facility] [address] [address]CPGUJIS AND PHYSICALPATIENT NAME: LESLEE GRAHAM MR#: [id number] PHYSICIAN: PORFIRIO BLANCHARD MDAUTHOR: Porfirio Blanchard MD DATE: 04/08/19 #: 2EASTHISTORY & PHYSICAL DATE: 04/08/19 : 60EVALUATION TIME: 1705HistoryChief Complaint/Admit ReasonAbdominal painHistory of Presenting Nknxfcx88 yo F PMHx of diverticulitis who presents with abdominal pain. Pt startedhaving abdominal pain on Apr 02 2019. [facility] She hada CT scan done there which [...] 3Skin AssessmentSkin dry, intactData ReviewLaboratory DataRecent Labs-48 hours04/08035540 2522 1645ChemistrySodium (136 - 147 mmol/L) Cancelled 144Potassium [...] (PCR) PendingSalmonella (PCR) PendingVibrio sp DNA/RNA PCR [place], [place] [id number] CONSULTATIONDate of : 1960 Name: LESLEE GRAHAM RMedrec Number: [id number] Phys: FAUSTINA MATA Date: 04/08/2019 Location: ERProcedure: ABDPELW/O, CT ABD&PEL W/O IV OR ORA Rad Numb: [id number] Ph: \\EXAM# TYPE/EXAM [id number] CT/CT ABD&PEL W/O IV OR ORAL COATE [...] drainable collection/abscess.PAGE 1 Signed Report Printed From [facility], [place] [id number] CONSULTATIONDate of : 1960 Name: LESLEE GRAHAM RMedrec Number: [id number] Phys: FAUSTINA MATA Date: 04/08/2019 Location: ERProcedure: ABDPELW/O, CT ABD&PEL W/O IV OR ORA Rad Numb: [id number] \\EXAM# TYPE/EXAM [id number] CT/CT ABD&PEL W/O IV OR ORAL COElectronically signed in PS360 by: Ramin Melo M.D. 04/08/201915:43 EST Repo rted By: Ramin Leavitt M.D.OUR RADIOLOGY DEPARTMENT IS ACCREDITED BY THE [employer] IN THE FOLLOWING MODALITIES:CT, MRI, NUCLEAR MEDICINE, PET/CT,MAMMOGRAPHY/STEREOTACTIC BIOPSY, & ULTRASOUNDCC: ROSINA FRIED MDProcedure Start: 04/08/19 (1525) Procedure Complete: 04/08/19 (1525)Technologist: Kalani TORO(James)(CT)Transcribed Date/Time: 04/08/2019 (8279)Agriscience Instructor: XPrinted Date/Time: 04/08/2019 (6591)PAGE 2 Signed Report Printed From PCIAssessment/PlanDiagnosis/Problem1. DiverticulitisA&P- [...] rce(s) Supporting Document(s) ID Date Data Source [id number] 04/08/2019 06:43:00 PM EST [facility] unformed stools in 24 hours? YLaxatives not received within 48hrs? Y Name Value Range Interpretation Code Description Data Kenia rce(s) Supporting Document(s) Campylobacter Not Detected Detected Not [facility] C diff tox AB Not Detected Detected Not [facility] Due to the high asymptomatic carriage ra milagro,especially in young children,the clinical relevance of the detectionof toxigenic C. difficile from stool should be consideredin the context of other clinical findings,patient age,and risk factors including hospitalization and antibioticexposure. Plesiom shigell Not Detected Detected Not [facility] Salmonella Not Detected Detected Not [facility] Vibrio sp. Not Detected Detected Not [facility] Vibrio cholerae Not Detected Detected Not [facility] Yersinia entero Not Detected Detected Not [facility] Enteroag E coli Not Detected Detected Not [facility] Enterop E. coli Not Detected Detected Not [facility] Enterot E. coli Not Detected Detected Not [facility] Shiglik E. coli Not Detected Detected Not [facility] Shig/Ent E coli Not Detected Detected Not [facility] Cryptosporidium Not Detected Detected Not [facility] Cyclo cayetanes Not Detected Detected Not [facility] Entamoeba histo Not Detected Detected Not [facility] Giardia lamblia Not Detected Detected Not [facility] Adenov F 40/41 Not Detected Detected Not [facility] Astrovirus Not Detected Detected Not [facility] Norovir GI/GII Not Detected Detected Not [facility] Rotavirus A Not Detected Detected Not [facility] Sapovirus Not Detected Detected Not [facility] The above results have been determined by using the Anevia system.Patient[employer] is an automated in vitro diagnostic system thatutilizes nested multiplex Polymerase Chain Reaction (PCR)and high-resolution melting analysis to detect and identifymultiple nucleic acid targets from clinical specimens. ID Date Data Source [id number] 04/08/2019 03:50:00 PM EST [facility] Exam Number: [id number] OF EXAMINATION : 04/08/2019 15:14 ESTCT ABD&PEL [...] rce(s) Supporting Document(s) ID Date Data Source [id number] 04/08/2019 02:59:00 PM EST [facility] Name Value Range Interpretation Code Description Data Kenia rce(s) Supporting Document(s) C-REACTIVE PROT 1.64 mg/dL 0.00-0.49 H [facility] ID Date Data Source [id number] 04/08/2019 02:59:00 PM EST [facility] Name Value Range Interpretation Code Description Data Kenia rce(s) Supporting Document(s) LIP 62.0 U/L 73-393 L [facility] ID Date Data Source [id number] 04/08/2019 02:59:00 PM EST [facility] Name Value Range Interpretation Code Description Data Kenia rce(s) Supporting Document(s) GLU 67 mg/dL 70-110 [facility] Patients taking Sulfasalazine may have f alsely depressedGlucose levels. Patients taking Sulfapyridine may havefalsely elevated Glucose levels. Patients should be drawnfor Glucose before the initial administration of eitherdrug. BUN 16 mg/dL 7-23 [facility] CRE 0.658 mg/dL 0.500-1.300 [facility] GFR > 60 mL/min [facility] CHLORIDE 109 mmol/L 99-110 [facility] NA 144 mmol/L 136-147 [facility] POTASSIUM 3.6 mmol/L 3.5-5.1 [facility] TCO2 25 mmol/L 20-33 [facility] ANION GAP 13.6 10.0-20.0 [facility] CA 8.9 mg/dL 8.3-10.7 [facility] ALKALINE PHOS 58 U/L 45-117 [facility] TP 6.8 g/dL 6.0-7.8 [facility] ALB 3.3 g/dL 3.5-5.0 [facility] ESRD Dialysis patient Albumin reference range: 2.9-4.4 g/dL GL 3.5 g/dL 2.3-3.5 [facility] A/G 0.9 1.0-2.5 [facility] TOTAL BILIRUBIN 0.4 mg/dL 0.1-1.1 [facility] ALTI 18 U/L 6-54 [facility] Patients taking Sulfasalazine and/or Sul fapyridine may havefalsely depressed ALT levels. Patients should be drawn forALT before the initial administration of either drug. AST 20 U/L 6-38 [facility] Patients taking Sulfasalazine and/or Sul fapyridine may havefalsely depressed AST levels. Patients should be drawn forAST before the initial administration of either drug. ID Date Data Source [id number] 04/08/2019 02:54:00 PM EST [facility] Name Value Range Interpretation Code Description Data Kenia rce(s) Supporting Document(s) WBC 8.57 x10E3/uL 4.0-10.5 [facility] RBC 4.12 x10E6/uL 4.20-5.40 [facility] Hemoglobin 12.7 g/dL 12.0-16.0 [facility] Hematocrit 38.2 % 37.0-47.0 [facility] MCV 92.7 fL 81.0-99.0 [facility] MCH 30.8 pg 27.0-31.0 [facility] MCHC 33.2 g/dL 32.7-35.6 [facility] RDW 13.0 % 11.5-14.0 [facility] Platelet count 277 x10E3/uL 150-450 [facility] ital MPV 9.1 fl 6.9-9.5 [facility] Neutrophils 70.2 % 34-64 [facility] Lymphocytes 20.9 % 25-45 [facility] Monocytes 7.5 % 1.7-10.6 [facility] Eosinophils 0.6 % 0.4-7.0 [facility] Basophils 0.6 % 0.1-2.0 [facility] Imm. Gran. 0.2 % 0.1-2.0 [facility] Abs. Neutro. 6.0 x10E3/uL 1.2-7.6 [facility] Abs. Lymph. 1.8 x10E3/uL 1.0-3.5 [facility]. [place]. 0.6 x10E3/uL 0.1-1.0 [facility] Abs. Eosin. 0.1 x10E3/uL 0.1-0.7 N [facility] l Abs. Baso. 0.1 x10E3/uL 0.0-0.1 [facility] Abs. Imm. Gran. 0.0 x10E3/uL 0.0-0.1 [facility] pital ID Date Data Source [id number] 04/08/2019 05:52:00 PM EST [facility] terName: Leslee ClementAge: 58 yrsSex: FemaleDOB: 1960MRN: [id number] Date: 04/08/2019Time: 12:55Account#: [id number] 2Paquiles REYNA:Diagnosis: Diverticulitis of large intestine without perforation or abscesswithout bleedingPresentation:03/2812:56 Presenting complaint: Patient states: I was diagnosed with zsDiverticulitis on 04/02 and placed on antibiotics. I have been backand fourth to [facility] 3 times and they keep sending lucio. [...] Smoking status: Patient states was never smoker [facility].- Advance Directives:: None.- Hospitalizations: : No recent hospitalization is reported.Screenin:20 Abuse screen: Denies threats or abuse. Denies injuries from another. xn0Cqiuxjkqjro screening: No deficits noted. Offer of HIV [...] in right upper quadrant and left upper kv7lbodacdj Pain does not radiate. Pain currently is [...] Reassessment: No changes from previously documented assessment. yj7Peixq Signs:13:00 BP 153 / 90 LA Sitting [...] Temp 98.2(T); Pulse Ox 98% on R/A; ie6Avbg 7/10;13:00 Body Mass Index 27.34 (70.00 kg, 160.02 cm) zsED Course:12:56 Patient arrived in ED. zs12:58 Triage completed. zs13:20 Helen Lemus, RN is Primary Nurse. kk313:27 Patient has correct armband on for positive identification. Placed in lk0ddnp. Bed in low position. Call light in [...] procedures completed. IV is patent, is intact, vv2ssqs fluids infusing freely.16:[address] Blanchard to the ED to evaluate this patient. fbg16:45 Stool collected. kk317:42 Inserted peripheral IV: 22 gauge in right hand Discontinued IV klpbleeding controlled, pressure dressing applied, No redness/swellingat site. initial iv plugged prior to admit and changed.Administered Medications:13:59 Drug: NS 0.9% 1000 ml [sodium chloride 0.9 % intravenous solution] gu4Zkvuu: IV; Rate: 250 mL/hr; Site: left forearm;17:28 Follow up: IV Status: Infusion continued upon admission; IV Intake: ai2423zu19:16 Drug: Ondansetron 8 mg [ondansetron HCl 2 mg/mL intravenous solution kk3(4 mL)] Route: IVP; Infused Over: 2 mins; Site: left forearm;14:45 Follow up: Response: No adverse reaction; Nausea is decreased kk314:38 Drug: metroNIDAZOLE 500 mg [metronidazole 500 mg/100 mL-sodium xj9aknebfuu(iso) intravenous piggyback] Route: IVPB; Site: left forearm;16:12 [...] Follow up: Response: Medication administered at discharge. mz2Kwjmwe:16:12 IV: 100ml; Total: 100ml. fbg17:28 IV: 200ml; Total: 300ml. gu2Tirgyrt:16:27 Decision to Hospitalize by Provider. fcn17:02 Disposition: [...] Dennis, RN ANATOLY Dennis, Helen, RN RN ac1Avlqtlwufdx: (The following items were deleted from the chart)14:41 12:56 Presenting complaint: Patient states: I was diagnosed with zsDiverticulitis on 04/02 and placed on antibiotics. I have been backand fourth to [facility] 3 time sand they keep sending mehome. zs Name Value Range Interpretation Code Description Data Kenia rce(s) Supporting Document(s) ID Date Data Source [id number] 04/08/2019 05:52:00 PM EST [facility] Physician DocumentationClaxXiang Singer edical CenterName: Leslee ClementAge: 58 yrsSex: FemaleDOB: 1960MRN: [id number] Date: 04/08/2019Time: 12:55Account#: [id number] 2Private MD:ED Physician Derek MataoDisposition Summary:04/08/19 16:27Hospitalization OrderedHospitalization Status: Inpatient Admission fcnProvider: Porfirio Blanchard fcnCondition: Stable fcnProblem: an ongoing problem fcnSymptoms: are unchanged fcnLocation: 2 East(04/08/19 17:17) fbgRoom Assignment: 238-1(04/08/19 17:17) fbgDiagnosis- Diverticulitis of large intestine without perforation or abscess fcnwithout bleedingAdditional Information- Admission Type: Inpatient Status. fcnDischarge Instructions:- Discharge Summary Sheet le3Sfcmo:- Medication Reconciliation fcn- SBAR fcn- Medication Reconciliation [...] Temp 98.2(T); Pulse Ox 98% on R/A; wx6Dasz 7/10;13:00 Body Mass Index 27.34 (70.00 kg, [...] ml [sodium chloride 0.9 % intravenous solution] tg2Kygji: IV; Rate: 250 mL/hr; Site: left forearm;17:28 Follow up: IV Status: Infusion continued upon admission; IV Intake: [id number]:16 Drug: Ondansetron 8 mg [ondansetron HCl 2 mg/mL intravenous solution kk3(4 mL)] Route: IVP; Infused Over: 2 mins; Site: left forearm;14:45 Follow up: Response: No adverse reaction; Nausea is decreased kk314:38 Drug: metroNIDAZOLE 500 mg [metronidazole 500 mg/100 mL-sodium qg2agpfvepc(iso) intravenous piggyback] Route: IVPB; Site: left forearm;16:12 [...] Follow up: Response: Medication administered at discharge. ij5Pifigdbryj:Dispatcher [employer] Faustina Gustafson MD MD fcnGilmour, Farah RN RN rupeshShHector ricketts RN Helen Tan RN ANATOLY dj0LtqzAna fernando RN klpCorrections: (The following items were deleted from the chart)14:03 14:02 COMPLETE BLOOD COUNT+LAB ordered. HGFWIOGO57:03 14:02 COMPREHENSIVE METABOLIC PROFIL+LAB ordered. CNLCBIWT80:03 14:02 LIPASE.+LAB ordered. SVYVHDNI13:03 14:02 COMPREHENSIVE METABOLIC PROFIL+LAB ordered. CSVVMWVM82:03 14:02 LIPASE.+LAB ordered. UHEFWCJO37:17 16:27 Med/Surg fcn fbg17:17 16:27 fcn fbg Name Value Range Interpretation Code Description Data Kenia rce(s) Supporting Document(s) Procedure Social History Code Duration Value Status Description Data Source(s ) Smoking 11/01/2019 12:00:00 AM EDT Never Smoker completed Never S moker eCW1 ([facility]) Smoking 11/01/2019 12:00:00 AM EDT Never Smoker completed Never S moker eCW1 ([facility]) Smoking 11/01/2019 12:00:00 AM EDT Never Smoker completed Never S moker eCW1 ([facility]) Smoking 11/01/2019 12:00:00 AM EDT Never Smoker completed Never S moker eCW1 ([facility]) Vital Signs ID Date Data Source UNK Name Value Range Interpretation Code Description Data Source(s) Body surface area Derived from formula 1.78 m2 1.78 m2 [facility] ([facility]) Body weight 74.390 kg 74.390 kg [facility] ([facility]) [place] body weight 115 [lb_av] 115 [lb_av] MEDEN T ([facility]) Body mass index (BMI) [Ratio] 29.0 kg/m2 29.0 k g/m2 [facility] ([facility]) Body weight 164.00 [lb_av] 164.00 [lb_av] [facility] Body height 63 [in_i] 63 [in_i] [facility] ([facility]) 5'3" Diastolic blood pressure 82 mm[Hg] 82 mm[Hg] [facility] ([facility]) Systolic blood pressure 140 mm[Hg] 140 mm[facility]Hg[facility] Body surface area Derived from formula 1.76 m2 1.76 m2 [facility] ([facility]) Body weight 72.236 kg 72.236 kg [facility] ([facility]) [place] body weight 115 [lb_av] 115 [lb_av] MEDEN T ([facility]) Body mass index (BMI) [Ratio] 28.2 kg/m2 28.2 k g/m2 [facility] ([facility]) Body weight 159.25 [lb_av] 159.25 [lb_av] MEDEN T ([facility]) Body height 63 [in_i] 63 [in_i] [facility] ([facility]) 5'3" Diastolic blood pressure 77 mm[Hg] 77 mm[Hg] [facility] ([facility]) Systolic blood pressure 121 mm[Hg] 121 mm[Hg] M EDENT ([facility]) Diastolic blood pressure 80 mm[Hg] 80 mm[Hg] eCW1 ([facility]) Systolic blood pressure 132 mm[Hg] 132 mm[Hg] e CW1 ([facility]) Respiratory rate 20 /min 20 /min eCW1 ([facility]) Heart rate 65 /min 65 /min eCW1 ([facility]) Body temperature 98.6 [degF] 98.6 [degF] eCW1 ( [facility]) Body mass index (BMI) [Ratio] 28.83 kg/m2 28.83 kg/m2 eCW1 ([facility]) Body weight 76.2 kg 76.2 kg eCW1 ([facility]) Body weight 168 [lb_av] 168 [lb_av] eCW1 ([facility]) Body height 64 [in_i] 64 [in_i] eCW1 ([facility]) Diastolic blood pressure 88 mm[Hg] 88 mm[Hg] eCW1 ([facility]) Systolic blood pressure 163 mm[Hg] 163 mm[Hg] e CW1 ([facility]) Respiratory rate 20 /min 20 /min eCW1 ([facility]) Heart rate 74 /min 74 /min eCW1 ([facility]) Body temperature 98.6 [degF] 98.6 [degF] eCW1 ( [facility]) Body mass index (BMI) [Ratio] 28.83 kg/m2 28.83 kg/m2 eCW1 ([facility]) Body weight 76.2 kg 76.2 kg eCW1 ([facility]) Body weight 168.0 [lb_av] 168.0 [lb_av] eCW1 ([facility]) Body height 64 [in_i] 64 [in_i] eCW1 ([facility]) Diastolic blood pressure 88 mm[Hg] 88 mm[Hg] eCW1 ([facility]) Systolic blood pressure 162 mm[Hg] 162 mm[Hg] e CW1 ([facility]) Deprecated Oxygen saturation in Capillary blood by Oximetry 100 % 100 % eCW1 ([facility]) Respiratory rate 16 /min 16 /min eCW1 ([facility]) Heart rate 69 /min 69 /min eCW1 ([facility]) Body mass index (BMI) [Ratio] 27.80 kg/m2 27.80 kg/m2 eCW1 ([facility]) Body weight Measured 162.0 [lb_av] 162.0 [lb_av ] eCW1 ([facility]) Body height 64 [in_us] 64 [in_us] eCW1 ([facility]) ID Date Data Source [id number] 04/30/2020 12:01:00 AM [facility] Name Value Range Interpretation Code Description Data Source(s) Weight (Calculated Kilograms) 68.95 68.95 [facility] Height (Calculated Centimeters) 162.56 162. 56 [facility] Body Mass Index (BMI) 26.1 26.1 [facility] ID Date Data Source [id number] 04/25/2020 02:24:00 PM EST [facility] Name Value Range Interpretation Code Description Data Source(s) Weight Measurement Method 1 1 [facility] Weight 2560 2560 [facility] Temperature 96.4 96.4 [facility] Respiratory Effort 1 1 [facility] Respiratory Rate 18 18 [facility] Pulse Assessment Method 1 1 [facility] Pulse Rate 64 64 [facility] Height 63 63 [facility] Blood Pressure 144/70 144/70 [facility] Weight Measurement Method 1 1 [facility] Weight 2560 2560 [facility] Temperature 97.3 97.3 [facility] Respiratory Effort 1 1 [facility] Respiratory Rate 16 16 [facility] Pulse Assessment Method 1 1 [facility] Pulse Rate 75 75 [facility] Height 63 63 [facility] Blood Pressure 143/67 143/67 [facility] Weight 2560 2560 [facility] Height 63 63 [facility] ID Date Data Source [id number] 04/20/2020 12:03:00 AM EST [facility] spital Name Value Range Interpretation Code Description Data Source(s) Weight (Calculated Kilograms) 68.[address] [place] [address] Height (Calculated Centimeters) 162.56 162. 56 [facility] Body Mass Index (BMI) 26.1 26.1 [facility] ID Date Data Source [id number] 04/17/2020 12:13:00 PM EST [facility] spital Name Value Range Interpretation Code Description Data Source(s) Weight (Calculated Kilograms) 68.95 68.95 [facility] Height (Calculated Centimeters) 162.56 162. 56 [facility] Body Mass Index (BMI) 26.1 261 [facility] ID Date Data Source [id number] 03/12/2020 08:36:00 AM EST [facility] spital Name Value Range Interpretation Code Description Data Source(s) Weight Measurement Method 8 8 [facility] Weight (Calculated Kilograms) 68.[address] [place] [address] Weight 2560 2560 [facility] Temperature Source 7 7 [facility] Temperature 97.4 97.4 [facility] spital Respiratory Rate 16 16 [facility] Pulse Assessment Method 4 4 [facility] Pulse Rate 61 61 [facility] Height (Calculated Centimeters) 162.56 162. 56 [facility] Height 63 63 [facility] pital Blood Pressure 137/82 137/82 [facility] Body Mass Index (BMI) 26.1 26.1 [facility] Weight Measurement Method 8 8 [facility] Weight (Calculated Kilograms) 68.95 68.95 [facility] Weight 2560 2560 [facility] pital Temperature Source 7 7 [facility] Temperature 97.4 97.4 [facility] spital Respiratory Rate 16 16 [facility] Pulse Rate 72 72 [facility] pital Height (Calculated Centimeters) 162.56 162. 56 [facility] Height 63 63 [facility] Blood Pressure 137/82 137/82 [facility] Body Mass Index (BMI) 26.1 26.1 [facility] Weight (Calculated Kilograms) 68.95 68.95 [facility] Height (Calculated Centimeters) 162.56 162. 56 [facility] Body Mass Index (BMI) 26.1 26.1 [facility] Weight (Calculated Kilograms) 68.95 68.95 [facility] Height (Calculated Centimeters) 162.56 162. 56 [facility] Body Mass Index (BMI) 26.1 26.1 [facility] ID Date Data Source [id number] 03/12/2020 12:17:00 AM EST [facility] spital Name Value Range Interpretation Code Description Data Source(s) Weight Measurement Method 8 8 [facility] Weight (Calculated Kilograms) 68.95 68.95 [facility] Weight 2560 2560 [facility] pital Temperature Source 7 7 [facility] Temperature 97.6 97.6 [facility] spital Respiratory Effort 1 1 [facility] Respiratory Rate 18 18 [facility] Pulse Assessment Method 4 4 [facility] Pulse Rate 68 68 [facility] pital Height (Calculated Centimeters) 162.56 162. 56 [facility] Height 63 63 [facility] pital Blood Pressure 142/81 142/81 [facility] Body Mass Index (BMI) 26.1 26.1 [facility] Weight Measurement Method 8 8 [facility] Weight (Calculated Kilograms) 68.95 68.95 [facility] Weight 2560 2560 [facility] pital Temperature Source 7 7 [facility] Temperature 97.6 97.6 [facility] spital Respiratory Effort 1 1 [facility] Respiratory Rate 18 18 [facility] Pulse Assessment Method 4 4 [facility] Pulse Rate 68 68 [facility] pital Height (Calculated Centimeters) 162.56 162. 56 [facility] Height 63 63 [facility] Blood Pressure 142/81 142/81 [facility] Body Mass Index (BMI) 26.1 26.1 [facility] Weight (Calculated Kilograms) 68.95 68.95 [facility] Height (Calculated Centimeters) 162.56 162. 56 [facility] Body Mass Index (BMI) 26.1 26.1 [facility] Weight (Calculated Kilograms) 68.95 68.95 [facility] Height (Calculated Centimeters) 162.56 162. 56 [facility] Body Mass Index (BMI) 26.1 26.1 [facility] ID Date Data Source [id number] 12/11/2019 10:47:00 AM EDT [facility] spital Name Value Range Interpretation Code Description Data Source(s) Weight Measurement Method 8 8 [facility] Weight (Calculated Kilograms) 68.95 68.95 [facility] Weight 2560 2560 [facility] pital Temperature Source 3 3 [facility] Temperature 96.8 96.8 [facility] spital Respiratory Effort 1 1 [facility] Respiratory Rate 18 18 [facility] Pulse Assessment Method 4 4 G [facility] Pulse Rate 56 56 [facility] pital Height (Calculated Centimeters) 162.56 162. 56 [facility] Height 63 63 [facility] pital Blood Pressure 166/81 166/81 [facility] Body Mass Index (BMI) 26.1 26.1 [facility] Weight Measurement Method 8 8 [facility] Weight (Calculated Kilograms) 68.95 68.95 [facility] Weight 2560 2560 [facility] pital Temperature Source 3 3 [facility] Temperature 96.9 96.9 [facility] spital Respiratory Effort 1 1 [facility] Respiratory Rate 18 18 [facility] Pulse Assessment Method 4 4 [facility] Pulse Rate 61 61 [facility] pital Height (Calculated Centimeters) 162.56 162. 56 [facility] Height 63 63 [facility] pital Blood Pressure 157/88 157/88 [facility] Body Mass Index (BMI) 26.1 26.1 [facility] Weight Measurement Method 8 8 [facility] Weight (Calculated Kilograms) 68.95 68.95 [facility] Weight 2560 2560 [facility] pital Temperature Source 3 3 [facility] Temperature 96.9 96.9 [facility] spital Respiratory Effort 1 1 [facility] Respiratory Rate 18 18 [facility] Pulse Assessment Method 4 4 G [facility] Pulse Rate 61 61 [facility] pital Height (Calculated Centimeters) 162.56 162. 56 [facility] Height 63 63 [facility] pital Blood Pressure 157/88 157/88 [facility] Body Mass Index (BMI) 26.1 26.1 [facility] Weight Measurement Method 8 8 [facility] Weight (Calculated Kilograms) 68.95 68.95 [facility] Weight 2560 2560 [facility] pital Temperature Source 3 3 [facility] Temperature 96.9 96.9 [facility] spital Respiratory Effort 1 1 [facility] Respiratory Rate 18 18 [facility] Pulse Assessment Method 4 4 [facility] Pulse Rate 61 61 [facility] pital Height (Calculated Centimeters) 162.56 162. 56 [facility] Height 63 63 [facility] pital Blood Pressure 157/88 157/88 [facility] Body Mass Index (BMI) 26.1 26.1 [facility] Weight (Calculated Kilograms) 68.95 68.95 [facility] Height (Calculated Centimeters) 162.56 162. 56 [facility] Body Mass Index (BMI) 26.1 26.1 [facility] ID Date Data Source [id number] 11/03/2019 11:27:00 AM EDT [facility] spital Name Value Range Interpretation Code Description Data Source(s) Weight (Calculated Kilograms) 68.95 68.95 [facility] Height (Calculated Centimeters) 162.56 162. 56 [facility] Body Mass Index (BMI) 26.1 26.1 [facility] ID Date Data Source [id number] 10/29/2019 12:01:00 AM EDT [facility] spital Name Value Range Interpretation Code Description Data Source(s) Weight (Calculated Kilograms) 68.95 68.95 [facility] Height (Calculated Centimeters) 162.56 162. 56 [facility] Body Mass Index (BMI) 26.1 26.1 [facility] ID Date Data Source [id number] 08/08/2019 06:40:00 AM EDT [facility] spital Name Value Range Interpretation Code Description Data Source(s) Weight Measurement Method 8 8 [facility] Weight (Calculated Kilograms) 68.95 68.95 [facility] Weight 2720 2720 [facility] pital Temperature Source 7 7 [facility] Temperature 97.8 97.8 [facility] spital Respiratory Effort 1 1 [facility] Respiratory Rate 16 16 [facility] Pulse Assessment Method 4 4 G [facility] Pulse Rate 70 70 [facility] pital Height (Calculated Centimeters) 162.56 162. 56 [facility] Height 63 63 [facility] Blood Pressure 158/73 158/73 [facility] Body Mass Index (BMI) 26.1 26.1 [facility] Weight Measurement Method 8 8 [facility] Weight (Calculated Kilograms) 68.95 68.95 [facility] Weight 2720 2720 [facility] pital Temperature Source 7 7 [facility] Temperature 97.8 97.8 [facility] spital Respiratory Effort 1 1 [facility] Respiratory Rate 16 16 [facility] Pulse Assessment Method 4 4 [facility] Pulse Rate 70 70 [facility] pital Height (Calculated Centimeters) 162.56 162. 56 [facility] Height 63 63 [facility] pital Blood Pressure 158/73 158/73 [facility] Body Mass Index (BMI) 26.1 26.1 [facility] Weight Measurement Method 8 8 [facility] Weight (Calculated Kilograms) 68.95 68.95 [facility] Weight 2720 2720 [facility] pital Temperature Source 7 7 [facility] Temperature 97.8 97.8 [facility] [facility] spital Respiratory Effort 1 1 [facility] Respiratory Rate 16 16 [facility] Pulse Assessment Method 4 4 G [facility] Pulse Rate 70 70 [facility] pital Height (Calculated Centimeters) 162.56 162. 56 [facility] Height 63 63 [facility] Blood Pressure 158/73 158/73 [facility] Body Mass Index (BMI) 26.1 26.1 [facility] Weight Measurement Method 8 8 [facility] Weight (Calculated Kilograms) 68.95 68.95 [facility] Weight 2720 2720 [facility] pital Temperature Source 7 7 [facility] Temperature 97.8 97.8 [facility] spital Respiratory Effort 1 1 [facility] Respiratory Rate 16 16 [facility] Pulse Assessment Method 4 4 G [facility] Pulse Rate 70 70 [facility] pital Height (Calculated Centimeters) 162.56 162. 56 [facility] Height 63 63 [facility] pital Blood Pressure 158/73 158/73 [facility] Body Mass Index (BMI) 26.1 26.1 [facility] Weight (Calculated Kilograms) 68.95 68.95 [facility] Height (Calculated Centimeters) 162.56 162. 56 [facility] Body Mass Index (BMI) 26.1 26.1 [facility] ID Date Data Source [id number] 05/02/2019 06:05:00 AM EST [facility] spital Name Value Range Interpretation Code Description Data Source(s) Weight (Calculated Kilograms) 68.[address] [place] [address] Height (Calculated Centimeters) 162.56 162. 56 [facility] Body Mass Index (BMI) 26.1 26.1 [facility] Weight (Calculated Kilograms) 68.[address] [place] [address] Height (Calculated Centimeters) 162.56 162. 56 [facility] Body Mass Index (BMI) 26.1 26.1 [facility] ID Date Data Source [id number] 04/14/2019 08:12:00 AM EST [facility] Name Value Range Interpretation Code Description Data Source(s) WEIGHT 68 kilos 68 kilos [facility] al HEIGHT 162.56 centimeters 162.56 centimeter [facility] WEIGHT 67.8 kilos 67.8 kilos [facility] al HEIGHT 162.56 centimeters 162.56 [facility]imeter [facility] ID Date Data Source [id number] 04/09/2019 12:17:00 PM EST [facility] spital Name Value Range Interpretation Code Description Data Source(s) Weight Measurement Method 8 8 [facility] Weight (Calculated Kilograms) 68.95 68.95 [facility] Weight 2448 2448 [facility] pital Temperature Source 7 7 [facility] Temperature 98.2 98.2 [facility] spital Respiratory Rate 18 18 [facility] Pulse Assessment Method 4 4 G [facility] Pulse Rate 67 67 [facility] pital Height (Calculated Centimeters) 162.56 162. 56 [facility] Height 63 63 [facility] Blood Pressure 151/78 151/78 [facility] Body Mass Index (BMI) 26.1 26.1 [facility] Weight Measurement Method 8 8 [facility] Weight (Calculated Kilograms) 68.95 68.95 [facility] Weight 2448 2448 [facility] pital Temperature Source 7 7 [facility] Temperature 98.2 98.2 [facility] spital Respiratory Rate 18 18 [facility] Pulse Rate 73 73 [facility] pital Height (Calculated Centimeters) 162.56 162. 56 [facility] Height 63 63 [facility] pital Blood Pressure 137/77 137/77 [facility] Body Mass Index (BMI) 26.1 26.1 [facility] Weight Measurement Method 8 8 [facility] Weight (Calculated Kilograms) 68.95 68.95 [facility] Weight 2448 2448 [facility] pital Temperature Source 7 7 [facility] Temperature 98.2 98.2 [facility] spital Respiratory Rate 18 18 [facility] Pulse Rate 73 73 [facility] Height (Calculated Centimeters) 162.56 162. 56 [facility] Height 63 63 [facility] pital Blood Pressure 137/77 137/77 [facility] Body Mass Index (BMI) 26.1 26.1 [facility] Weight (Calculated Kilograms) 68.95 68.95 [facility] Height (Calculated Centimeters) 162.56 162. 56 [facility] Body Mass Index (BMI) 26.1 26.1 [facility] ID Date Data Source [id number] 04/09/2019 12:11:00 PM EST [facility] spital Name Value Range Interpretation Code Description Data Source(s) Weight Measurement Method 8 8 [facility] Weight (Calculated Kilograms) 68.95 68.95 [facility] Weight 2480 2480 [facility] pital Temperature Source 7 7 [facility] Weight Measurement Method 8 8 [facility] Weight (Calculated Kilograms) 68.95 68.95 [facility] Weight 2480 2480 [facility] pital Temperature 98.1 98.1 [facility] spital Respiratory Effort 1 1 [facility] Respiratory Rate 16 16 [facility] Pulse Assessment Method 4 4 [facility] Pulse Rate 81 81 [facility] pital Height (Calculated Centimeters) 162.56 162. 56 [facility] Blood Pressure 138/84 138/84 [facility] Body Mass Index (BMI) 26.1 26.1 [facility] Weight Measurement Method 8 8 [facility] Weight (Calculated Kilograms) 68.95 68.95 [facility] Weight 2480 2480 [facility] pital Temperature 97.7 97.7 [facility] spital Respiratory Effort 1 1 [facility] Respiratory Rate 16 16 [facility] Pulse Assessment Method 4 4 G [facility] Pulse Rate 67 67 [facility] pital Height (Calculated Centimeters) 162.56 162. 56 [facility] Blood Pressure 143/75 143/75 [facility] Body Mass Index (BMI) 26.1 26.1 [facility] Weight (Calculated Kilograms) 68.95 68.95 [facility] Height (Calculated Centimeters) 162.56 162. 56 [facility] Body Mass Index (BMI) 26.1 26.1 [facility] Weight (Calculated Kilograms) 68.95 68.95 [facility] Height (Calculated Centimeters) 162.56 162. 56 [facility] Body Mass Index (BMI) 26.1 261 [facility] ID Date Data Source [id number] 04/10/2019 01:13:00 AM EST [facility] Name Value Range Interpretation Code Description Data Source(s) WEIGHT 70.45 kilos 70.45 kilos [facility] HEIGHT 162.56 centimeters 162.56 [facility] WEIGHT 70.45 kilos 70.45 kilos [facility] HEIGHT 162.56 centimeters 162.56 [facility] WEIGHT 70.45 kilos 70.45 kilos [facility] HEIGHT 162.56 centimeters 162.56 [facility]
[2020-06-06] MEDS ORDERED: HALOPERIDOL 5MG/ML VIAL (J1630 PER 1) IV ONE (21:45)
[2020-06-06 22:31] VITALS: BP 181/84
== END 2020-06-06 23:34 | disposition home or self-care (01) ==
LOC: M ED 17:44
DX: R11.2 Nausea with vomiting, unspecified (principal); K57.32 Diverticulitis of large intestine without perforation or abscess without bleeding; E78.5 Hyperlipidemia, unspecified; F17.200 Nicotine dependence, unspecified, uncomplicated
CPT/HCPCS: 74021; 80048; 80076; 83690; 85025; 96361; 96374; 96375; 99284; C9113; J1630; J2405

== ENCOUNTER → 2022-06-29 | Outpatient (CLI) | payer OTHER ==
[~2022-06-29] MED LIST changes: +POLY1.4S; +TRAM50TA2 PO
== END ==
LOC: M LABSMTC 09:50
PROVIDERS: ATTEND Anesthesiology
DX: Z01.818 Encounter for other preprocedural examination (principal); Z11.52 Encounter for screening for COVID-19

== ENCOUNTER → 2023-01-18 | Outpatient (CLI) | payer OTHER ==
[~2023-01-18] VITALS: Ht 160 cm; Wt 68.9 kg
[~2023-01-18] MED LIST changes: -CELE1CAP7 PO; +CELE1CAP99 PO; +FLEET ENEMA PR PRN; +HOME MED LIST COMPLETE! XX SCH; +LR 1,000 ML IV SCH; +METOCLOPRAMIDE INJ 10MG/2ML VIAL IV STA; +ONDANSETRON 4MG 2ML VIAL IV ONE; +ONDANSETRON 4MG 2ML VIAL IV PRN; +ceFAZolin SOD 2 GM in IV 1 EA IV ONE; +metroNIDAZOLE 500 MG in IV 1 EA IV ONE
[2023-01-18 09:58] VITALS: BP 189/84; TEMP 97.4; O2SAT 99
== END ==
LOC: M OROP 09:19 → UNDOADMIN 09:19 → M OR 09:19 → UNDODISIN 09:22 → EDSTATUS 11:35
PROVIDERS: ATTEND Surgery
DX: K57.92 Diverticulitis of intestine, part unspecified, without perforation or abscess without bleeding (principal); Z53.09 Procedure and treatment not carried out because of other contraindication; R11.0 Nausea
CPT/HCPCS: 87635; 93005; J2405; J2765